=== PATIENT | male | born 1940 | race Caucasian/White ===

== ENCOUNTER 2018-03-04 20:41 | Inpatient (IN) | payer MEDICARE, OTHER, SELFPAY ==
[2018-03-04 23:15] VITALS: BP 139/73; PULSE 70; RESP 18; TEMP 37.1; O2SAT 97
--- NOTE | 2018-03-04 23:45 | PC.NURSE ---
Transfer Note Pt arrived to floor at approximately 2300. Pt A&O, VSS, no complaints of pain. Pt had 1unit of PRBCs infusing from [employer] that had just finished on ambulance. Lines flushed through w/ NS and LR @ 75ml/hr started by material handler 2nd shift RN. Pt brief changed after transfer to bed. Brief changed and moderate amount of dark matilde mucus blood on brief. Pt changed and request for urinal after. Dr Bee called and updated on pt status and current VSS, telephone orders given to this RN and input into computer. Report given to material handler 2nd shift RN and all questions/concerns addressed.
[2018-03-05] VITALS (12 sets, daily range): BP systolic 105–155; BP diastolic 57–90; PULSE 62–83; RESP 12–23; TEMP 36.5–37.4; O2SAT 98–100; BMI 27.6
[2018-03-05] MEDS: LACTATED RINGERS 1,000 ML 75 ML IV
--- NOTE | 2018-03-05 | DI.RAD.S_ITS ---
PROCEDURE: XR CHEST 1V INDICATIONS: esophageal bleeding TECHNIQUE: One view of the chest was acquired. COMPARISON: None. FINDINGS: Surgical changes and devices: Sternotomy wires are seen. The 1st sternotomy wire is fractured. There is an aortic valve prosthesis seen. Lungs and pleura: No pleural effusions or pneumothorax. Lungs are clear. Mediastinum: The cardiac contours are within normal limits. The aorta demonstrates calcification and tortuosity. Bones and chest wall: Age-appropriate bony degenerative changes are seen. No suspicious bony lesions. Overlying soft tissues appear unremarkable. IMPRESSION: Unremarkable portable chest, demonstrating postoperative and degenerative change. Dictated by: Tate Almaraz M.D. on 03/05/2018 at 8:45 Approved by: Tate Almaraz M.D. on 03/05/2018 at 8:46
[2018-03-05 00:24] LABS: Hematocrit 21.4 % (41-53); Hemoglobin 7.2 g/dL (13.5-17.5)
[2018-03-05] MEDS: CARBIDOPA-LEVODOPA 25/100 TABLET 2 EACH PO ×2 (01:42→08:17)
[2018-03-05] MEDS: LORazepam 0.5 MG TABLET 0.25 MG PO (01:54)
--- NOTE | 2018-03-05 03:34 | PC.NURSE ---
Addendum entered by Estela Emery R.N. 03/05/18 07:15: 0700 Pt has second unit infusing. Per MD request, orthostatic taken and stable at this time. Pt denies dizziness while standing. Pt has been incontinent of matilde bloody stools three times over night with no nausea or vomiting. MD ordered pt to be transferred to the ICU. Report given to TELEVISION NEWS ANCHOR, pts made aware of transfer. Pts items gathered and transferred with pt. Original Note: shift supervisor melting: 0100 Pts admission completed. MD notified regarding pts request for home meds that he had missed this evening for Parkinson, MD ordered a now dose as well as Ativan for sleep per pts home routine. Pt is A/Ox3. Using 2L O2, lungs clear. H/H drawn after arrival and per order pt will need 2 units PRBC, consent for blood completed and on chart. Pt typed and crossed. Pt incontinent of matilde bloody stool. Denies nausea and pain. Pt and his spouse oriented to room and call light. Bed alarm on for safety. Spouse rooming in overnight. 0230 unit of PRBs infusing. Pt has been medicated with prn Ativan for sleep right before starting the this unit.
--- NOTE | 2018-03-05 07:07 | PM.HP.1 ---
History of Present Illness Date Patient Seen: 03/05/18 Time Patient Seen: 06:00 Chief complaint: gi bleed Narrative: Patient is a 77 years of age male who initially was seen at [facility] Emergency Room on SundayMarch 02 with chief complaint of bright red blood per rectum that began on SundayMarch 01.. Patient has history of gastric esophageal reflux disease and use of nonsteroidal anti-inflammatories on a regular basis. Patient had the bowel prep on SundayMarch 02 and underwent a EGD and colonoscopy on SundayMarch 03. Patient was found to have esophageal tear and was cauterized. Patient was then discharged home the same day. The following day on SundayMarch 04 patient had, once again, bright red blood per rectum and came back to the emergency room at [facility]. Since there was no bed available to admit the patient the manufacturing shift supervisor doctor was contacted at [facility] to accept transfer of patient. Patient's hemoglobin was noted at 7.7 in the emergency room at [facility] before 1 unit of blood was transfused. This blood was provided to the patient in transit from the ER at [facility] to [facility] as a direct admit to the medical-surgical floor instead of the intensive care unit. At the present time I am unclear what was the last recorded hemoglobin on SundayMarch 03 before patient was discharged home. Of note, the hemoglobin following the 1 unit of packed RBC reported a lower hemoglobin of 7.2. This would suggest patient has active ongoing GI bleed and more importantly the hemoglobin was 0.5 units lower than the hemoglobin prior to the blood transfusion. As the day shift physician the following morning I am responsible for admitting this patient and will transfer the patient to the intensive care unit for higher level of care and monitoring since that there is clear evidence of active GI bleeding and continued dropping of the hemoglobin in the face of the blood transfusion. There has been no surgeon consulted on this patient either prior to or after the patient's arrival to the hospital. I will also consult with her surgeon and seek their recommendation. Patient History Medical History Hypertension (Acute) Hypothyroidism (Acute) Parkinson disease (Acute) Comment: Past medical history Parkinson's disease for the past 22 years. History of aortic valve replacement with bioprosthetic valve 4 years ago. Hypertension hypothyroidism gastroesophageal reflux disease Social history Patient is . Patient stop smoking in his mid 20s. No alcohol abuse Surgical history Bioprosthetic aortic valve replacement 4 years ago Family history Mother with COPD Family & Social History Social History: household members spouse Prior Living Arrangements House Safety & Behavioral: Feels Safe in Current Yes Environment Been Physically Hurt or No Threatened By a Person Suicidal Ideation Description None Suicide Plan Description No Plan Tobacco & Substance use: Smoking Status Former smoker alcohol intake frequency other Meds Home Medications Medication Instructions Recorded Confirmed Type APAP/Ca Carbonate/Mg Carbona 500 - 1,000 mg PO PRN PRN #0 07/04/12 03/05/18 History (#EXCEDRIN DUAL ASPIRIN FREE) CALCIUM CARBONATE (TUMS ) 1 - 2 tabs PO PRN PRN #0 07/04/12 03/05/18 History CHOLECALCIFEROL (VITAMIN D) 5,000 units PO QDAY #0 07/04/12 03/05/18 History carbidopa-levodopa 2 tab PO QID #0 07/04/12 03/05/18 History CAMPHOR/EUCALYPTUS OIL/MENTH 1 cre TP PRN #0 07/08/12 03/05/18 History (VICKS VAPORUB 4.7%-1.2%-2.6%) LEVOTHYROXINE SODIUM (SYNTHROID) 0.05 mg PO QDAY #90 09/25/12 03/05/18 Rx Multi Vitamin 1 tab PO DAILY 03/05/18 03/05/18 History amlodipine 2.5 mg PO DAILY 03/05/18 03/05/18 History cyanocobalamin-cobamamide [B12] 1,000 mcg DAILY 03/05/18 03/05/18 History lorazepam 0.25 mg PO Q6HR PRN 03/05/18 03/05/18 History losartan 50 mg PO DAILY 03/05/18 03/05/18 History pantoprazole 40 mg PO BID 03/05/18 03/05/18 History ropinirole 8 mg PO DAILY 03/05/18 03/05/18 History Allergies Allergy/AdvReac Type Severity Reaction Status Date / Time HYDROCHLOROTHIAZIDE Allergy Mild LIGHTHEADED Uncoded 09/12/17 12:23 Review of Systems Review of Systems A 10 point review of system was obtained conversation with the patient. Symptoms were negative apart from the bright red blood per rectum noted on March 04Sunday which caused patient to come back to the emergency room. There was no hematemesis. There was no abdominal pain noted. No recent fevers and chills. No cough Exam Vital Signs (past 8 hours): - 03/04/18 23:15 03/05/18 02:18 03/05/18 02:37 Temperature 98.8 F 98.6 F 97.7 F Pulse Rate 70 78 63 Pulse Rate [Orthostatic Lying] Pulse Rate [Orthostatic Sitting] Pulse Rate [Orthostatic Standing] Respiratory Rate 18 18 18 Blood Pressure 139/73 139/78 105/57 L Blood Pressure [Orthostatic Lying] Blood Pressure [Orthostatic Sitting] Blood Pressure [Orthostatic Standing] Pulse Oximetry 97 03/05/18 05:00 03/05/18 05:06 03/05/18 05:09 Temperature 99 F 99.0 F 99.0 F Pulse Rate 62 62 62 Pulse Rate [Orthostatic Lying] Pulse Rate [Orthostatic Sitting] Pulse Rate [Orthostatic Standing] Respiratory Rate 18 18 18 Blood Pressure 113/61 113/61 113/61 Blood Pressure [Orthostatic Lying] Blood Pressure [Orthostatic Sitting] Blood Pressure [Orthostatic Standing] Pulse Oximetry 100 03/05/18 05:20 03/05/18 06:46 Temperature 98.6 F Pulse Rate 68 Pulse Rate [Orthostatic Lying] 65 Pulse Rate [Orthostatic Sitting] 62 Pulse Rate [Orthostatic Standing] 70 Respiratory Rate 18 Blood Pressure 117/58 L Blood Pressure [Orthostatic Lying] 138/79 Blood Pressure [Orthostatic Sitting] 144/79 H Blood Pressure [Orthostatic Standing] 155/78 H Pulse Oximetry Oxygen Flow Rate 2 Narrative Exam Narrative: General appearance patient is not awake and alert in no apparent distress at rest Psychiatric well oriented to time place person. Mood is pleasant patient's is at bedside affect is appropriate Skin no rashes or lesions at nonjaundiced turgor normal Eyes pupils are equal round and reactive to light Ears nose and throat hearing grossly intact nose septum to midline no bleeding no oropharyngeal lesions noted Respiratory fairly clear to auscultation good airflow no wheezes no crackles Cardiovascular regular rate rhythm no murmur rubs or gallops +3 pulses to extremities GI nontender to palpation positive bowel sounds no pedal splenomegaly no bruits Extremities warm +3 pulses no edema Neurologic no focal neurologic changes cranial nerves 2-12 grossly intact. Resting tremor evident consistent with history of Parkinson's disease Musculoskeletal strength is noted 5/5 no clubbing is noted range of motion normal Objective Labs Result Diagrams: 03/05/18 00:12 Labs: Laboratory Results - last 24 hr 03/05/18 03/05/18 00:12 00:12 Hgb 7.2 L Hct 21.4 L Blood Type A Positive Antibody Screen Negative Crossmatch See Detail Assessment & Plan Plan: Assessment/Plan Narrative: Acute upper GI bleed Patient was transferred from [facility] Emergency room as a direct admit to the medical-surgical floor at [facility] with active GI bleed. Patient had EGD and colonoscopy at [facility] as an inpatient on SundayMarch 03. An esophageal tear was identified and cauterized during the EGD procedure Patient was discharged from would be hospice on SundayMarch 03.. Recurrence of bleed noted by the patient March 04Sunday and return to the [facility] ER. Upon return to the emergency room on March 04, the initial hemoglobin was 7.7. Patient was provided 1 unit of packed RBCs. A follow-up hemoglobin was 7.2. The nightshift physician was contacted By the manufacturing shift supervisor nursing staff and recommended 2 additional units of packed RBCs. No general surgeon has been contacted as yet at [facility] regarding this patient's transfer. Will move the patient for medical surgical floor to the ICU due to this active GI bleed that is appearing to be still quite aggressive. Will call the general surgeon coupon collection clerk to discuss this case and how we should proceed with further management. Protonix 80 mg IV dose given and 40 mg IV q.12. Hemoglobin hematocrit to be monitored carefully every 3-4 hours with orthostatic blood pressure and pulse rate every 3-4 hours. Will of course hold the nonsteroidal anti-inflammatory medications he normally takes on a regular basis Parkinson's disease Continue his usual home medications as tolerated. Hypertension history Hold his blood pressure meds at this time Gastroesophageal reflux disease history Note Protonix IV being provided q.12 hours History of aortic valve replacement bioprosthetic valve No anticoagulant therapy indicated. Hypothyroidism Continue Synthroid as tolerated Time Spent With Patient Time with patient: Greater than 35 minutes (70 min)
--- NOTE | 2018-03-05 07:25 | P.HP_ITS ---
History of Present Illness Date Patient Seen: 03/05/18 Time Patient Seen: 06:00 Chief complaint: gi bleed Narrative: Patient is a 77 years of age male who initially was seen at [facility] Emergency Room on SundayMarch 02 with chief complaint of bright red blood per rectum that began on SundayMarch 01.. Patient has history of gastric esophageal reflux disease and use of nonsteroidal anti-inflammatories on a regular basis. Patient had the bowel prep on SundayMarch 02 and underwent a EGD and colonoscopy on SundayMarch 03. Patient was found to have esophageal tear and was cauterized. Patient was then discharged home the same day. The following day on SundayMarch 04 patient had, once again, bright red blood per rectum and came back to the emergency room at [facility]. Since there was no bed available to admit the patient the almond huller doctor was contacted at [facility] to accept transfer of patient. Patient's hemoglobin was noted at 7.7 in the emergency room at [facility] before 1 unit of blood was transfused. This blood was provided to the patient in transit from the ER at [facility] to [facility] as a direct admit to the medical-surgical floor instead of the intensive care unit. At the present time I am unclear what was the last recorded hemoglobin on SundayMarch 03 before patient was discharged home. Of note, the hemoglobin following the 1 unit of packed RBC reported a lower hemoglobin of 7.2. This would suggest patient has active ongoing GI bleed and more importantly the hemoglobin was 0.5 units lower than the hemoglobin prior to the blood transfusion. As the day shift physician the following morning I am responsible for admitting this patient and will transfer the patient to the intensive care unit for higher level of care and monitoring since that there is clear evidence of active GI bleeding and continued dropping of the hemoglobin in the face of the blood transfusion. There has been no surgeon consulted on this patient either prior to or after the patient's arrival to the hospital. I will also consult with her surgeon and seek their recommendation. Patient History Medical History Hypertension (Acute) Hypothyroidism (Acute) Parkinson disease (Acute) Comment: Past medical history Parkinson's disease for the past 22 years. History of aortic valve replacement with bioprosthetic valve 4 years ago. Hypertension hypothyroidism gastroesophageal reflux disease Social history Patient is . Patient stop smoking in his mid 20s. No alcohol abuse Surgical history Bioprosthetic aortic valve replacement 4 years ago Family history Mother with COPD Family & Social History Social History: household members spouse Prior Living Arrangements House Safety & Behavioral: Feels Safe in Current Yes Environment Been Physically Hurt or No Threatened By a Person Suicidal Ideation Description None Suicide Plan Description No Plan Tobacco & Substance use: Smoking Status Former smoker alcohol intake frequency other Meds Home Medications Medication Instructions Recorded Confirmed Type APAP/Ca Carbonate/Mg Carbona 500 - 1,000 mg PO PRN PRN #0 07/04/12 03/05/18 History (#EXCEDRIN DUAL ASPIRIN FREE) CALCIUM CARBONATE (TUMS ) 1 - 2 tabs PO PRN PRN #0 07/04/12 03/05/18 History CHOLECALCIFEROL (VITAMIN D) 5,000 units PO QDAY #0 07/04/12 03/05/18 History carbidopa-levodopa 2 tab PO QID #0 07/04/12 03/05/18 History CAMPHOR/EUCALYPTUS OIL/MENTH 1 cre TP PRN #0 07/08/12 03/05/18 History (VICKS VAPORUB 4.7%-1.2%-2.6%) LEVOTHYROXINE SODIUM (SYNTHROID) 0.05 mg PO QDAY #90 09/25/12 03/05/18 Rx Multi Vitamin 1 tab PO DAILY 03/05/18 03/05/18 History amlodipine 2.5 mg PO DAILY 03/05/18 03/05/18 History cyanocobalamin-cobamamide [B12] 1,000 mcg DAILY 03/05/18 03/05/18 History lorazepam 0.25 mg PO Q6HR PRN 03/05/18 03/05/18 History losartan 50 mg PO DAILY 03/05/18 03/05/18 History pantoprazole 40 mg PO BID 03/05/18 03/05/18 History ropinirole 8 mg PO DAILY 03/05/18 03/05/18 History Allergies Allergy/AdvReac Type Severity Reaction Status Date / Time HYDROCHLOROTHIAZIDE Allergy Mild LIGHTHEADED Uncoded 09/12/17 12:23 Review of Systems Review of Systems A 10 point review of system was obtained conversation with the patient. Symptoms were negative apart from the bright red blood per rectum noted on March 04Sunday which caused patient to come back to the emergency room. There was no hematemesis. There was no abdominal pain noted. No recent fevers and chills. No cough Exam Vital Signs (past 8 hours): - 03/04/18 23:15 03/05/18 02:18 03/05/18 02:37 Temperature 98.8 F 98.6 F 97.7 F Pulse Rate 70 78 63 Pulse Rate [Orthostatic Lying] Pulse Rate [Orthostatic Sitting] Pulse Rate [Orthostatic Standing] Respiratory Rate 18 18 18 Blood Pressure 139/73 139/78 105/57 L Blood Pressure [Orthostatic Lying] Blood Pressure [Orthostatic Sitting] Blood Pressure [Orthostatic Standing] Pulse Oximetry 97 03/05/18 05:00 03/05/18 05:06 03/05/18 05:09 Temperature 99 F 99.0 F 99.0 F Pulse Rate 62 62 62 Pulse Rate [Orthostatic Lying] Pulse Rate [Orthostatic Sitting] Pulse Rate [Orthostatic Standing] Respiratory Rate 18 18 18 Blood Pressure 113/61 113/61 113/61 Blood Pressure [Orthostatic Lying] Blood Pressure [Orthostatic Sitting] Blood Pressure [Orthostatic Standing] Pulse Oximetry 100 03/05/18 05:20 03/05/18 06:46 Temperature 98.6 F Pulse Rate 68 Pulse Rate [Orthostatic Lying] 65 Pulse Rate [Orthostatic Sitting] 62 Pulse Rate [Orthostatic Standing] 70 Respiratory Rate 18 Blood Pressure 117/58 L Blood Pressure [Orthostatic Lying] 138/79 Blood Pressure [Orthostatic Sitting] 144/79 H Blood Pressure [Orthostatic Standing] 155/78 H Pulse Oximetry Oxygen Flow Rate 2 Narrative Exam Narrative: General appearance patient is not awake and alert in no apparent distress at rest Psychiatric well oriented to time place person. Mood is pleasant patient's is at bedside affect is appropriate Skin no rashes or lesions at nonjaundiced turgor normal Eyes pupils are equal round and reactive to light Ears nose and throat hearing grossly intact nose septum to midline no bleeding no oropharyngeal lesions noted Respiratory fairly clear to auscultation good airflow no wheezes no crackles Cardiovascular regular rate rhythm no murmur rubs or gallops +3 pulses to extremities GI nontender to palpation positive bowel sounds no pedal splenomegaly no bruits Extremities warm +3 pulses no edema Neurologic no focal neurologic changes cranial nerves 2-12 grossly intact. Resting tremor evident consistent with history of Parkinson's disease Musculoskeletal strength is noted 5/5 no clubbing is noted range of motion normal Objective Labs Result Diagrams: 03/05/18 00:12 Labs: Laboratory Results - last 24 hr 03/05/18 03/05/18 00:12 00:12 Hgb 7.2 L Hct 21.4 L Blood Type A Positive Antibody Screen Negative Crossmatch See Detail Assessment & Plan Plan: Assessment/Plan Narrative: Acute upper GI bleed Patient was transferred from [facility] Emergency room as a direct admit to the medical-surgical floor at [facility] with active GI bleed. Patient had EGD and colonoscopy at [facility] as an inpatient on SundayMarch 03. An esophageal tear was identified and cauterized during the EGD procedure Patient was discharged from would be hospice on SundayMarch 03.. Recurrence of bleed noted by the patient March 04Sunday and return to the [facility] ER. Upon return to the emergency room on March 04, the initial hemoglobin was 7.7. Patient was provided 1 unit of packed RBCs. A follow-up hemoglobin was 7.2. The nightshift physician was contacted By the almond huller nursing staff and recommended 2 additional units of packed RBCs. No general surgeon has been contacted as yet at [facility] regarding this patient's transfer. Will move the patient for medical surgical floor to the ICU due to this active GI bleed that is appearing to be still quite aggressive. Will call the general surgeon underground conduit installer to discuss this case and how we should proceed with further management. Protonix 80 mg IV dose given and 40 mg IV q.12. Hemoglobin hematocrit to be monitored carefully every 3-4 hours with orthostatic blood pressure and pulse rate every 3-4 hours. Will of course hold the nonsteroidal anti-inflammatory medications he normally takes on a regular basis Parkinson's disease Continue his usual home medications as tolerated. Hypertension history Hold his blood pressure meds at this time Gastroesophageal reflux disease history Note Protonix IV being provided q.12 hours History of aortic valve replacement bioprosthetic valve No anticoagulant therapy indicated. Hypothyroidism Continue Synthroid as tolerated Time Spent With Patient Time with patient: Greater than 35 minutes (70 min)
--- NOTE | 2018-03-05 08:14 | P.HP_ITS ---
History of Present Illness Chief complaint: gi bleed Narrative: Patient is a 77 years of age male who initially was seen at [facility] Emergency Room on SundayMarch 02 with chief complaint of bright red blood per rectum that began on SundayMarch 01.. Patient has history of gastric esophageal reflux disease and use of nonsteroidal anti-inflammatories on a regular basis. Patient had the bowel prep on SundayMarch 02 and underwent a EGD and colonoscopy on SundayMarch 03. Patient was found to have esophageal tear and was cauterized. Patient was then discharged home the same day. The following day on SundayMarch 04 patient had, once again, bright red blood per rectum and came back to the emergency room at [facility]. Since there was no bed available to admit the patient the veterinary hospital shift lead doctor was contacted at [facility] to accept transfer of patient. Patient's hemoglobin was noted at 7.7 in the emergency room at [facility] before 1 unit of blood was transfused. This blood was provided to the patient in transit from the ER at [facility] to [facility] as a direct admit to the medical-surgical floor instead of the intensive care unit. At the present time I am unclear what was the last recorded hemoglobin on SundayMarch 03 before patient was discharged home. Of note, the hemoglobin following the 1 unit of packed RBC reported a lower hemoglobin of 7.2. This would suggest patient has active ongoing GI bleed and more importantly the hemoglobin was 0.5 units lower than the hemoglobin prior to the blood transfusion. As the day shift physician the following morning I am responsible for admitting this patient and will transfer the patient to the intensive care unit for higher level of care and monitoring since that there is clear evidence of active GI bleeding and continued dropping of the hemoglobin in the face of the blood transfusion. There has been no surgeon consulted on this patient either prior to or after the patient's arrival to the hospital. I will also consult with her surgeon and seek their recommendation. Patient History Medical History Hypertension (Acute) Hypothyroidism (Acute) Parkinson disease (Acute) Surgical History History of aortic valve replacement with porcine valve (Acute) Family & Social History Social History: household members spouse Prior Living Arrangements House Safety & Behavioral: Feels Safe in Current Yes Environment Been Physically Hurt or No Threatened By a Person Suicidal Ideation Description None Suicide Plan Description No Plan Tobacco & Substance use: Smoking Status Former smoker alcohol intake frequency other Meds Home Medications Medication Instructions Recorded Confirmed Type APAP/Ca Carbonate/Mg Carbona 500 - 1,000 mg PO PRN PRN #0 07/04/12 03/05/18 History (#EXCEDRIN DUAL ASPIRIN FREE) CALCIUM CARBONATE (TUMS ) 1 - 2 tabs PO PRN PRN #0 07/04/12 03/05/18 History CHOLECALCIFEROL (VITAMIN D) 5,000 units PO QDAY #0 07/04/12 03/05/18 History carbidopa-levodopa 2 tab PO QID #0 07/04/12 03/05/18 History CAMPHOR/EUCALYPTUS OIL/MENTH 1 cre TP PRN #0 07/08/12 03/05/18 History (VICKS VAPORUB 4.7%-1.2%-2.6%) LEVOTHYROXINE SODIUM (SYNTHROID) 0.05 mg PO QDAY #90 09/25/12 03/05/18 Rx Multi Vitamin 1 tab PO DAILY 03/05/18 03/05/18 History amlodipine 2.5 mg PO DAILY 03/05/18 03/05/18 History cyanocobalamin-cobamamide [B12] 1,000 mcg DAILY 03/05/18 03/05/18 History lorazepam 0.25 mg PO Q6HR PRN 03/05/18 03/05/18 History losartan 50 mg PO DAILY 03/05/18 03/05/18 History pantoprazole 40 mg PO BID 03/05/18 03/05/18 History ropinirole 8 mg PO DAILY 03/05/18 03/05/18 History Allergies Allergy/AdvReac Type Severity Reaction Status Date / Time HYDROCHLOROTHIAZIDE Allergy Mild LIGHTHEADED Uncoded 09/12/17 12:23 Exam Vital Signs (past 8 hours): - 03/05/18 02:18 03/05/18 02:37 03/05/18 05:00 Temperature 98.6 F 97.7 F 99 F Pulse Rate 78 63 62 Pulse Rate [Orthostatic Lying] Pulse Rate [Orthostatic Sitting] Pulse Rate [Orthostatic Standing] Respiratory Rate 18 Blood Pressure 139/78 105/57 L 113/61 Blood Pressure [Orthostatic Lying] Blood Pressure [Orthostatic Sitting] Blood Pressure [Orthostatic Standing] Pulse Oximetry 03/05/18 05:06 03/05/18 05:09 03/05/18 05:20 Temperature 99.0 F 99.0 F 98.6 F Pulse Rate 62 62 68 Pulse Rate [Orthostatic Lying] Pulse Rate [Orthostatic Sitting] Pulse Rate [Orthostatic Standing] Respiratory Rate 18 18 18 Blood Pressure 113/61 113/61 117/58 L Blood Pressure [Orthostatic Lying] Blood Pressure [Orthostatic Sitting] Blood Pressure [Orthostatic Standing] Pulse Oximetry 100 03/05/18 06:46 03/05/18 07:22 Temperature 98.3 F Pulse Rate 62 Pulse Rate [Orthostatic Lying] 65 Pulse Rate [Orthostatic Sitting] 62 Pulse Rate [Orthostatic Standing] 70 Respiratory Rate 12 Blood Pressure 151/77 H Blood Pressure [Orthostatic Lying] 138/79 Blood Pressure [Orthostatic Sitting] 144/79 H Blood Pressure [Orthostatic Standing] 155/78 H Pulse Oximetry 99 Oxygen Flow Rate 2 Objective Labs Result Diagrams: 03/05/18 00:12 Labs: Laboratory Results - last 24 hr 03/05/18 03/05/18 00:12 00:12 Hgb 7.2 L Hct 21.4 L Blood Type A Positive Antibody Screen Negative Crossmatch See Detail
[2018-03-05] MEDS: PANTOPRAZOLE 80 MG in SODIUM CHLORIDE 0.9% 100 ML 10 ML IV (08:18)
[2018-03-05] MEDS: SODIUM CHLORIDE 0.9% 1,000 ML 100 ML IV (08:21)
[2018-03-05] MEDS: ROPINIROLE 4 MG TABLET 8 MG PO (08:23)
[2018-03-05 08:40] LABS: Hematocrit 26.5 % (41-53); Hemoglobin 9.3 g/dL (13.5-17.5)
--- NOTE | 2018-03-05 09:04 | CM.DANOTE ---
Discharge Planning/Care Management: DCP: assessment: Case received, EMR reviewed and met with pt and his Willis ([phone]). Introduced self and role. Pt is a 77 year old male who was sent over from [facility] ER. Willis reports she spoke with their PCP Dr. Jordan who is recommending that pt go to a hospital setting that has a GI specialist. Dr. Rodrigues is aware and working at this time on a transfer to appropriate facility. Payer: Medicare and [facility]. P: follow prn. CM Discharge Assessment Start: 03/05/18 09:01 Freq: Status: Active Protocol: Document 03/05/18 09:01 ITV (Rec: 03/05/18 09:04 ITV [id number]) Discharge Planning Assessment Advance Directives? Yes: UNK PLEASE CHECK WITH PATIENT Advance Directives on File No History Provided By Patient Family Member Prior Living Arrangements House Household Members spouse Review Status In Process Next Review Type Continued Stay Review
[2018-03-05 09:44] LABS: Hematocrit 26.5 % (41-53); Hemoglobin 9.4 g/dL (13.5-17.5); Mean Corpuscular HGB Conc 35.5 % (30-36); Mean Corpuscular Hemoglobin 31.9 PG (26-34); Platelet Count 126 X10^3/uL (150-400); Red Blood Cell Count 2.94 X10^6/uL (4.5-5.9); Red Cell Distribution Width 13.6 % (11.6-14.8); White Blood Cell Count 7.4 X10^3/uL (4.5-11.0)
[2018-03-05 09:47] LABS: Alanine Aminotransferase 15 IU/L (21-72); Albumin 2.8 g/dL (3.5-5.0); Albumin Globulin Ratio 1.3 (1.0-2.8); Alkaline Phosphatase 30 U/L (38-126); Aspartate Aminotransferase 24 IU/L (17-59); BUN Creatinine Ratio 15.5 (6-22); Bilirubin Total 1.7 mg/dL (0.2-1.3); Blood Urea Nitrogen 17 mg/dL (9-20); Carbon Dioxide 25 mmol/L (22-32); Chloride 106 mmol/L (98-107); Estimated Glomerular Filt Rate > 60.0 mL/min (>60); Globulin 2.2 g/dL (1.7-4.1); Glucose 113 mg/dL (80-110); HEMOLYSIS < 15 (0-50); Potassium 3.7 mmol/L (3.4-5.1); Sodium 138 mmol/L (137-145)
[2018-03-05] MEDS: PIPERACILLIN-TAZO 3.375 GM/50 ML FROZ.PIGGY IV (09:51)
[2018-03-05 10:09] LABS: Neutrophils Absolute Manual 5772 /uL (3000-5900); RBC Morphology Normal Morphology; Total Cells Counted 100
[2018-03-05] MEDS: FLUCONAZOLE 200 MG/100 ML PIGGYBACK 100 MG IV (10:31)
--- NOTE | 2018-03-05 10:47 | PM.DS.1 ---
History of Present Illness Date Patient Seen: 03/05/18 Time Patient Seen: 06:17 Chief complaint: gi bleed Narrative: Patient is a 77 years of age male who initially was seen at [facility] Emergency Room on SundayMarch 02 with chief complaint of bright red blood per rectum that began on SundayMarch 01.. Patient has history of gastric esophageal reflux disease and use of nonsteroidal anti-inflammatories on a regular basis. Patient had the bowel prep on SundayMarch 02 and underwent a EGD and colonoscopy on SundayMarch 03. Patient was found to have esophageal tear and was cauterized. Patient was then discharged home the same day. The following day on SundayMarch 04 patient had, once again, bright red blood per rectum and came back to the emergency room at [facility]. Since there was no bed available to admit the patient the slicing machine operator/tender doctor was contacted at [facility] to accept transfer of patient. Patient's hemoglobin was noted at 7.7 in the emergency room at [facility] before 1 unit of blood was transfused. This blood was provided to the patient in transit from the ER at [facility] to [facility] as a direct admit to the medical-surgical floor instead of the intensive care unit. At the present time I am unclear what was the last recorded hemoglobin on SundayMarch 03 before patient was discharged home. Of note, the hemoglobin following the 1 unit of packed RBC reported a lower hemoglobin of 7.2. This would suggest patient has active ongoing GI bleed and more importantly the hemoglobin was 0.5 units lower than the hemoglobin prior to the blood transfusion. As the day shift physician the following morning I am responsible for admitting this patient and will transfer the patient to the intensive care unit for higher level of care and monitoring since that there is clear evidence of active GI bleeding and continued dropping of the hemoglobin in the face of the blood transfusion. There has been no surgeon consulted on this patient either prior to or after the patient's arrival to the hospital. I will also consult with her surgeon and seek their recommendation. Discharge Providers Date of admission: 03/04/18 20:41 Primary care physician: Ruel Jordan MD Discharge provider: Shaun Rodrigues MD Summary Discharge Diagnosis: Acute upper GI bleed Patient was transferred from [facility] Emergency room as a direct admit to the medical-surgical floor at [facility] with active GI bleed. Patient had EGD and colonoscopy at [facility] as an inpatient on SundayMarch 03. An esophageal tear was identified and cauterized during the EGD procedure Patient was discharged from would be hospice on SundayMarch 03.. Recurrence of bleed noted by the patient March 04Sunday and return to the [facility] ER. Upon return to the emergency room on March 04, the initial hemoglobin was 7.7. Patient was provided 1 unit of packed RBCs. A follow-up hemoglobin was 7.2. The nightshift physician was contacted By the slicing machine operator/tender nursing staff and recommended 2 additional units of packed RBCs. No general surgeon has been contacted as yet at [facility] regarding this patient's transfer. Will move the patient for medical surgical floor to the ICU due to this active GI bleed that is appearing to be still quite aggressive. Will call the general surgeon neon molder to discuss this case and how we should proceed with further management. Protonix 80 mg IV dose given and 40 mg IV q.12. Hemoglobin hematocrit to be monitored carefully every 3-4 hours with orthostatic blood pressure and pulse rate every 3-4 hours. Will of course hold the nonsteroidal anti-inflammatory medications he normally takes on a regular basis As recommended by Dr. hong patient given 3.375 g of Zosyn and 200 mg of fluconazole IV Patient continued on Protonix IV q.12 hours. Normal saline at 100 cc an hour Parkinson's disease Continue his usual home medications as tolerated. Hypertension history Hold his blood pressure meds at this time Gastroesophageal reflux disease history Note Protonix IV being provided q.12 hours History of aortic valve replacement bioprosthetic valve No anticoagulant therapy indicated. Hospital Course: I refer you to the H&P dictation completed earlier today. After patient was transferred to the ICU by me earlier this morning I spoke to the transfer center at the [facility]. I spoke to the medical cultural centre manager at [facility] who referred me to the cardiothoracic surgeon. Med next conversation was with Dr. Hong who was unclear regarding the management as described which consisted of Cauterization of esophageal tear as EGD procedure on Sunday At [facility] March 03. Dr. Hong referred me to the medical cultural centre manager at [facility] would be the accepting physician. This cultural centre manager was doctor Verito Gar. The recommendation was patient to be transferred by helicopter to the [facility] emergency room. Further plan and management will hinge on the workup and further consultation by the specialist team that is not available at [facility]. Patient to be transported by helicopter. Status at Discharge Cognitive/behavioral status at discharge: Awake and alert no apparent distress well oriented Time Spent with Patient Greater than 30 minutes (45 min ) Exam Vital Signs (past 8 hours): - 03/05/18 05:00 03/05/18 05:06 03/05/18 05:09 Temperature 99 F 99.0 F 99.0 F Pulse Rate 62 62 62 Pulse Rate [Orthostatic Lying] Pulse Rate [Orthostatic Sitting] Pulse Rate [Orthostatic Standing] Respiratory Rate 18 18 18 Blood Pressure 113/61 113/61 113/61 Blood Pressure [Orthostatic Lying] Blood Pressure [Orthostatic Sitting] Blood Pressure [Orthostatic Standing] Pulse Oximetry 100 03/05/18 05:20 03/05/18 06:46 03/05/18 07:22 Temperature 98.6 F 98.3 F Pulse Rate 68 62 Pulse Rate [Orthostatic Lying] 65 Pulse Rate [Orthostatic Sitting] 62 Pulse Rate [Orthostatic Standing] 70 Respiratory Rate 18 12 Blood Pressure 117/58 L 151/77 H Blood Pressure [Orthostatic Lying] 138/79 Blood Pressure [Orthostatic Sitting] 144/79 H Blood Pressure [Orthostatic Standing] 155/78 H Pulse Oximetry 99 03/05/18 09:48 03/05/18 09:54 Temperature 98.8 F Pulse Rate 69 68 Pulse Rate [Orthostatic Lying] Pulse Rate [Orthostatic Sitting] Pulse Rate [Orthostatic Standing] Respiratory Rate 14 23 Blood Pressure 146/90 H 132/72 Blood Pressure [Orthostatic Lying] Blood Pressure [Orthostatic Sitting] Blood Pressure [Orthostatic Standing] Pulse Oximetry 98 Oxygen Flow Rate 0 Narrative Exam Narrative: Patient is not awake and alert in no apparent distress at rest Psychiatric well oriented to time place person Respiratory clear to auscultation with good airflow no wheezes crackles Cardiovascular regular in rate and rhythm no murmur noted GI is benign soft nontender. Positive bowel sounds noted no distension no guarding no bruits Neurologic no focal neurologic changes cranial nerves 2-12 grossly intact patient with resting tremor tremor related to history of Parkinson's disease Objective Labs Result Diagrams: 03/05/18 08:32 03/05/18 09:28 Labs: Laboratory Results - last 24 hr 03/05/18 03/05/18 03/05/18 00:12 00:12 08:32 WBC RBC Hgb 7.2 L 9.3 L Hct 21.4 L 26.5 L MCV MCH MCHC RDW Plt Count Total Counted Seg Neutrophils % Band Neutrophils % Lymphocytes % (Manual) Atypical Lymphs % Monocytes % (Manual) Neutrophils # (Manual) RBC Morphology Sodium Potassium Chloride Carbon Dioxide BUN Creatinine Estimated GFR BUN/Creatinine Ratio Glucose Calcium Total Bilirubin AST ALT Alkaline Phosphatase Total Protein Albumin Globulin Albumin/Globulin Ratio Blood Type A Positive Antibody Screen Negative Crossmatch See Detail 03/05/18 03/05/18 08:32 09:28 WBC 7.4 RBC 2.94 L Hgb 9.4 L Hct 26.5 L MCV 90.0 MCH 31.9 MCHC 35.5 RDW 13.6 Plt Count 126 L Total Counted 100 Seg Neutrophils % 77.0 H Band Neutrophils % 1.0 L Lymphocytes % (Manual) 14.0 L Atypical Lymphs % 2.0 H Monocytes % (Manual) 6.0 Neutrophils # (Manual) 5772 RBC Morphology Normal morphology Sodium 138 Potassium 3.7 Chloride 106 Carbon Dioxide 25 BUN 17 Creatinine 1.10 Estimated GFR > 60.0 BUN/Creatinine Ratio 15.5 Glucose 113 H Calcium 8.0 L Total Bilirubin 1.7 H AST 24 ALT 15 L Alkaline Phosphatase 30 L Total Protein 5.0 L Albumin 2.8 L Globulin 2.2 Albumin/Globulin Ratio 1.3 Blood Type Antibody Screen Crossmatch Discharge Plan Discharge Plan Patient Disposition: [facility] Other facility: [facility] emergency room as discussed with ICU cultural centre manager Dr. Verito Gar Under care of provider: Dr Gar to see patient in ER Discharge comment: Initial discussion with Cardiothoracic surgeon Dr Hong at [facility] and will be involved as well. \ Dr Hong helped coordinate care and referral to Dr Gar to accept patient. Discharge Med Rec/Prescriptions Prescriptions: Discontinued APAP/Ca Carbonate/Mg Carbona (#EXCEDRIN DUAL ASPIRIN FREE) 500 - 1,000 mg PO PRN PRN (Reason: Headache) Qty: 0 RF: 0 carbidopa-levodopa 25 MG/100 MG tablet 2 tab PO QID Qty: 0 RF: 0 CALCIUM CARBONATE (TUMS ) 1 - 2 tabs PO PRN PRN (Reason: (Drug) Ingestion) Qty: 0 RF: 0 CHOLECALCIFEROL (VITAMIN D) 5,000 units PO QDAY Qty: 0 RF: 0 CAMPHOR/EUCALYPTUS OIL/MENTH (VICKS VAPORUB 4.7%-1.2%-2.6%) 1 cre TP PRN Qty: 0 RF: 0 LEVOTHYROXINE SODIUM (SYNTHROID) 0.05 mg PO QDAY Qty: 90 RF: 0 pantoprazole 40 mg tablet,delayed release (DR/EC) 40 mg PO BID RF: 0 lorazepam 0.5 mg tablet 0.25 mg PO Q6HR PRN (Reason: Anxiety) RF: 0 losartan 50 mg tablet 50 mg PO DAILY RF: 0 amlodipine 2.5 mg tablet 2.5 mg PO DAILY RF: 0 cyanocobalamin-cobamamide [B12] 5,000-100 mcg Lozenge 1,000 mcg DAILY RF: 0 Multi Vitamin 1 tab PO DAILY RF: 0 ropinirole 8 mg tablet extended release 24 hr 8 mg PO DAILY RF: 0 Discharge Health Status Multidrug resistant organism: No MDRO Discharge Data Primary Care Provider: Ruel Jordan Attending Provider: Emeterio Bee Admit Date/Time: 03/04/18 20:41
--- NOTE | 2018-03-05 11:25 | PC.NURSE ---
pt transfered to [facility] via [facility] airlift. VSS; at bedside
== END 2018-03-05 11:20 | disposition short-term general hospital (02) | DRG 392 ==
LOC: ICU 03-05 11:18 → AC 03-05 11:32
PROVIDERS: Internal Medicine; Admitting Provider Internal Medicine; PCP Internal Medicine; Visit Provider Internal Medicine
DX: K22.8 Other specified diseases of esophagus (principal); D62 Acute posthemorrhagic anemia; K92.1 Melena; G20 Parkinson's disease; I10 Essential (primary) hypertension; K21.9 Gastro-esophageal reflux disease without esophagitis; Z95.2 Presence of prosthetic heart valve; E03.9 Hypothyroidism, unspecified
CPT/HCPCS: 36415; 36430; 71045; 80053; 85014; 85018; 85025; 86850; 86900; 86901; G0378; P9016; C9113; G0379; J1450; J2543

== ENCOUNTER → 2018-06-27 09:21 | Outpatient (CLI) | payer MEDICARE, OTHER, SELFPAY ==
[2018-03-05 00:11] VITALS: BMI 27.6
--- NOTE | 2018-06-27 | DI.ECHO.S_ITS ---
[facility] +---------+ : : [address] : : : : [id number] : : : : Phone: [phone]+ Echocardiogram Report + + :Name: CHARITO NATION Study Date: 06/27/2018 Height: 70 in : :[facility] Weight: 193 lb : : Gender: Male BSA: 2.1 m2 : :: 1940 Age: 78 yrs BP: 130/78 mmHg: :Reason For Study: DYSPNEA ON EXERTION, MURMUR : : Performed By: Rachel Villafana : :Referring: Dr. Lipscomb Roof : + + Interpretation Summary The left ventricle is normal in size. The ejection fraction is estimated to be 60-65%. There has been no significant change in LVEF since the previous study. The right ventricle is mildly dilated. The right ventricular systolic function is normal. The prosthetic aortic valve is well-seated. There is probable normal prosthetic aortic valve function. The peak aortic velocity is 2.46 m/sec. The peak aortic velocity on the previous exam was 2.36 m/sec. The aortic valve mean gradient is 12.3 mmHg. There is mild to moderate tricuspid regurgitation. Compared to the prior echo exam, there has been an increase in TR severity. The right ventricular systolic pressure is estimated to be at least 33 mmHg based on an estimated right atrial pressure of 3 mm Hg. The ascending aorta is moderately enlarged. 4.2 cm in diameter. In July 2014 it was about 3.9 cm. Procedure: A two-dimensional transthoracic echocardiogram with color flow and Doppler was performed. The study quality was technically adequate. Comparison is made with the echocardiogram of 07/15/2014. The patient was in sinus bradycardia with heart rates between 41-56 bpm during the exam. Left Ventricle: The left ventricle is normal in size. Left ventricular wall thickness is mildly increased. There is no ventricular septal defect visualized. The ejection fraction is estimated to be 60-65%. There has been no significant change since the previous study. There are no focal wall motion abnormalities. MV E/A: 1.1 Med Peak E' Jeremy: 5.3 cm/sec E/E' med: 11.5. Right Ventricle: The right ventricle is mildly dilated. The right ventricular systolic function is normal. Atria: The left atrium is moderately dilated. The left atrium has remained unchanged in size since the prior echo exam. Right atrial size is normal. The right atrium has mildly decreased in size since the prior echo exam. There is no Doppler evidence for an interatrial shunt. Mitral Valve: The mitral valve leaflets appear mildly thickened, but open well. There is mild mitral annular calcification. There is trace mitral regurgitation. Aortic Valve: The prosthetic aortic valve is well-seated. There is probable normal prosthetic aortic valve function. The peak aortic velocity is 2.46 m/sec. The peak aortic velocity on the previous exam was 2.36 m/sec. The aortic valve mean gradient is 12.3 mmHg. No aortic regurgitation is present. Tricuspid Valve: The tricuspid valve leaflets are thickened and/or calcified, but open well. There is mild to moderate tricuspid regurgitation. The right ventricular systolic pressure is estimated to be at least 33 mmHg based on an estimated right atrial pressure of 3 mm Hg. Compared to the prior echo exam, there has been an increase in TR severity. Pulmonic Valve: The pulmonic valve is not well seen, but is grossly normal. There is trace pulmonic regurgitation. Great Vessels: The aortic root is normal size. The ascending aorta is moderately enlarged. The aortic arch is at the upper limits of normal in size. The pulmonary artery is normal size. The IVC is of normal diameter and collapses greater than 50% with a sniff. This suggests a low right atrial pressure of 3 mm Hg. Pericardium/ Pleura There is no pericardial effusion. MMode/2D Measurements & Calculations LVIDd: 5.3 cm LVOT diam: 2.1 cm LVIDs: 3.6 cm asc Aorta Diam: 4.2 cm FS: 32.5 % Ao Arch Diam (Prox Trans): 3.2 cm EPSS: 1.2 cm IVSd: 1.1 cm LVPWd: 1.1 cm LV greene. diameter/BSA (cm/m^2): 2.6 LV sys. diameter/BSA (cm/m^2): 1.7 LA A2 area: 24.8 cm2 RA long axis: 5.2 cm LA A4 area: 21.6 cm2 RA area: 18.1 cm2 LA length (vol): 5.5 cm RA vol: 53.8 ml LA vol: 83.1 ml RA : 26.2 ml/m2 LA vol index: 40.4 ml/m2 IVC diam: 1.7 cm RVD1 (basal): 4.2 cm RVD2 (mid): 2.7 cm TAPSE: 2.0 cm Doppler Measurements & Calculations Ao V2 max: 245.8 cm/sec LVOT Max Jeremy: 102.5 cm/sec Ao V2 mean: 160.5 cm/sec LV V1 max P.2 mmHg Ao max P.2 mmHg LV V1 VTI: 22.5 cm Ao mean P.3 mmHg LYNDA(I,D): 1.4 cm2 Ao V2 VTI: 55.8 cm LYNDA(V,D): 1.5 cm2 sev ratio: 0.40 LYNDA indexed to BSA (cm^2/m^2): 0.69 MV E max jeremy: 60.5 cm/sec TR max jeremy: 275.7 cm/sec MV A max jeremy: 54.3 cm/sec TR max P.4 mmHg MV E/A: 1.1 PA V2 max: 82.0 cm/sec Med Peak E' Jeremy: 5.3 cm/sec PA V2 mean: 55.5 cm/sec E/E' med: 11.5 PA mean P.4 mmHg Lat Peak E' Jeremy: 6.1 cm/sec PA Accel Time: 0.05 sec E/E' lat: 9.9 E/e' average: 10.7 MV dec time: 0.29 sec MV P1/2t: 86.3 msec MV P1/2t max jeremy: 60.5 cm/sec SV(LVOT): 79.0 ml MVA(P1/2t): 2.5 cm2 Reading Physician:PM
== END ==
PROVIDERS: PCP Internal Medicine; Visit Provider Nurse Practitioner
DX: I07.1 Rheumatic tricuspid insufficiency (principal); I77.810 Thoracic aortic ectasia; R06.00 Dyspnea, unspecified; R01.1 Cardiac murmur, unspecified; Z95.2 Presence of prosthetic heart valve
CPT/HCPCS: 93306

== ENCOUNTER → 2022-01-09 11:05 | Outpatient (CLI) | payer MEDICARE, OTHER, SELFPAY ==
[2018-03-05 00:11] VITALS: BMI 27.6
[2022-01-09 12:07] LABS: COVID19 -Nasal RAPID Negative (Negative)
== END ==
PROVIDERS: PCP Internal Medicine; Referring Provider Orthopaedic Surgery; Visit Provider Orthopaedic Surgery
DX: Z20.822 Contact with and (suspected) exposure to COVID-19 (principal)
CPT/HCPCS: 87635; C9803

== ENCOUNTER 2022-01-10 08:25 | Day surgery (SDC) | payer MEDICARE, OTHER, SELFPAY ==
[2018-03-05 00:11] VITALS: BMI 27.6
[2021-12-19 07:39] VITALS: BMI 25.1
[2022-01-10] VITALS (15 sets, daily range): BP systolic 109–180; BP diastolic 58–83; PULSE 44–71; RESP 14–18; TEMP 35.8–36.4; O2SAT 94–99; BMI 25.1
--- NOTE | 2022-01-10 | PATH_ITS ---
[facility] Accession Number: [id number] . 01 Material submitted: . knee - LOOSE BODY, RIGHT KNEE . 01 Diagnosis: Right Knee, Biopsy: Thrombosed varix. [facility] 01/12/2022 1541 Local . 01 Electronically signed: . Mony Luu MD, Pathologist NPI- [id number] . 01 Gross description: . Received in formalin, labeled with the patient's name and loose body right knee, and consists of a brown, smooth, glistening soft tissue fragment measuring 2.3 x 0.8 x 0.6 cm. Bisecting the specimen reveals semisolid hemorrhagic material. The specimen is submitted entirely in cassette A1. ([id number]) /FRR 01/11/20222007 Local . 01 Pathologist provided ICD-10: M17.11 . 01 CPT . 735810 Specimen Comment: A courtesy copy of this report has been sent to [phone] Performed at: 01 [facility] [address] [place] [address] [id number] MD Rivas Beltran MD Phone: [phone]
[2022-01-10] MEDS: ACETAMINOPHEN 325 MG TABLET 975 MG PO (09:23)
[2022-01-10] MEDS: CELECOXIB 200 MG CAPSULE PO (09:24)
[2022-01-10] MEDS: LACTATED RINGERS 1,000 ML 42 ML IV ×2 (09:27→11:59)
--- NOTE | 2022-01-10 09:28 | SUR.PREOP ---
Pt took home med of Cardidopa (Q2H) and Entacapone right now. Pt will turn off DBS prior to surgery as well.
[2022-01-10] MEDS: VANCOMYCIN 1,000 MG/200 ML PIGGYBACK 200 MG IV (10:06)
--- NOTE | 2022-01-10 11:00 | DI.RAD.S_ITS ---
PROCEDURE: XR KNEE RT 1TO2V INDICATIONS: RIGHT POST OP KNEE TECHNIQUE: 2 view(s) of the knee acquired. COMPARISON: [facility], CR, XR KNEE 4+ VIEWS RIGHT, 05/18/2021, 14:11. FINDINGS: Bones: Patient is status post knee joint arthroplasty. Hardware components are in expected positions. Visualized bony structures are intact. Soft tissues: Overlying postoperative changes are noted. IMPRESSION: Expected postoperative changes following knee arthroplasty. Dictated by: Sadi Modi M.D. on 01/10/2022 at 16:30 Approved by: Sadi Modi M.D. on 01/10/2022 at 16:31
--- NOTE | 2022-01-10 11:06 | P.OP_ITS ---
Operative Date/Time/Diagnoses Date of procedure: 01/10/22 Time of procedure: 11:20 Pre-op diagnosis: Right total knee arthroplasty Post-op diagnosis: same Procedure & Clinicians Procedure: Right total knee arthroplasty Same procedure as scheduled: Yes Indications: The patient has had progressively worsening right knee pain with radiographic changes consistent with arthritis. He was noted to have severe patellofemoral osteoarthritis with lateral subluxation of his patella. Non-operative management has failed and the patient has requested total knee replacement. The risks, benefits and alternatives to surgery were discussed with the patient prior to proceeding. Risks discussed included, but were not limited to, failure to relieve pain, stiffness, infection, nerve damage, deep venous thrombosis, pulmonary embolism, stroke, coma, heart attack, permanent paralysis and , as well as the potential need for eventual revision of the prosthetic. Surgeon: Jen Nolasco Vice President Supply Chain: Joao Alexander Anesthesia Type: General Operative Notes Findings: Severe right knee osteoarthritis with severe destruction of his patellofemoral joint and severe destruction of his femur especially laterally along the trochlear groove. Closure Type: primary Specimen(s): none sent Prosthetic devices, grafts, tissues, transplants, or devices: [facility] BCS 2 size 6 femur, size 5 tibia, +9 poly, 38 mm round patella Estimated Blood Loss (mL): 250 Blood products transfused: none Tourniquet time (min): 76 Procedure in detail: The patient was seen in the pre-operative area, where the patient identified the right knee as the operative site and this was marked with my initials. The patient received pre-operative antibiotics, and was taken to the operating room and placed on the operative table in the supine position. After satisfactory anesthesia, a business development sales executive out was performed. The right leg was encircled with a tourniquet about the proximal thigh, and the leg was prepared from the toes to the tourniquet with ChloroPrep in the usual fashion and draped through sterile drapes. The leg was elevated and exsanguinated with Eschmark bandage and the tourniquet inflated to [250] mmHg pressure. The knee was approached through an approximately 18 cm incision centered over the patella and carried into the knee through a medial parapatellar arthrotomy. A portion of the medial and lateral meniscus was resected. Soft tissue was carefully mobilized around the patella the patella was measured with a caliper. We meticulously evaluated the patella. There was some severe central wear. I used multiple different calipers. I then carefully resected for a flat surface although there was a central defect. Bone was resected from the patella and the patellar height was reconstituted with up an appropriate sized patellar component. A lateral release at least of the synovium was done. In a carefully mobilized patella. I offered tract for patella tracking after the patella was resurfaced with a trial component. The patella did appear to track appropriately. A cover was then placed on the patella. A small amount of additional medial and lateral meniscus was resected. The distal femur was cut at 5?. A [+2] cut was used. It looked like an appropriate distal femoral cut and the cut was made without difficulty. An extramedullary guide was used for the tibial cut. 10 mm was resected off the least affected side.The tibia was prepared. The rotation was assessed. The patient was placed in extension residual medial and lateral meniscus as well as any residual bone was carefully resected. [No] additional tibia was resected. Hemostasis was achieved especially posteriorly. Additional local was injected into the posterior capsule. The extension gap was assessed and additional releases for gap balancing were performed as necessary. It was checked with the gap ice cream shop associate. The femoral component was trial was placed and the notch was finished. The rotation was assessed and the appropriate size femoral guide was placed on the distal femur and finishing cuts were made. There was no evidence of notching. The anterior, posterior and chamfer cuts were then made. The posterior osteophytes and soft tissues were then removed. The posterior capsule was injected with part of a mixture of 60 ml 0.25% Marcaine mixed with 20 ml Exparel for post operative pain control. The remainder of this mixture was injected into the capsule and subcutaneous tissues during cement curing. The tibial and femoral components were then placed and the knee placed through a range of motion. Range of motion was [0-130], with good stability throughout the range. The trials were then removed, and the tibia was finished. The bone was prepared with pulsatile lavage, and dried with a sponge. Cement was applied and the final prosthetics placed. Excess cement was removed during and after cement curing. A brief Betadine soak was performed. After confirming there was no extruded ce ment posteriorly, the final tibial insert was placed. The knee was copiously irrigated and the tourniquet deflated. Hemostasis was obtained with the Bovie. A drain was placed and brought out superolaterally. The capsule was closed with interrupted nonabsorbable suture. The subcutaneous layer was closed with barbed sutures, and the skin with a running 3-0 V-Lock suture and Surgical glue. An Aquacel Ag dressing was applied and the patient was taken to recovery having tolerated the procedure well. Complications: none Post-operative Condition: stable Disposition: Acute Care Plan for aftercare: The patient will be maintained on a standard total knee replacement protocol with weight bearing as tolerated. The patient will receive aspirin and sequential compression devices for DVT prophylaxis. The patient will be discharged home when safe for the home environment.
--- NOTE | 2022-01-10 11:06 | PM.PREOP ---
Pre-operative Note COVID-19 COVID-19 status: Negative Interval Note History & Physical reviewed/Exam performed by Physician: Yes Changes to H&P: No
--- NOTE | 2022-01-10 11:12 | SUR.PREOP ---
Block start time [1107] . Monitoring initiated and maintained throughout procedure. 2LNC Oxygen and medications given by anesthesiologist Patient remained stable throughout procedure, no adverse reactions noted. Block end time [1110]. Vitals 138/76, HR 42 SB, Sats 99%. DBS turned off by patient- he confirmed it is off. updated that pt is heading to OR soon.
[2022-01-10] MEDS: CEFAZOLIN 2 GM IN 0.9 % NACL 100 ML IV ×2 (11:25→19:51)
[2022-01-10] MEDS: TRANEXAMIC ACID 1,000 MG VIAL 2000 MG INJ (11:44)
--- NOTE | 2022-01-10 12:25 | SUR.OPER ---
Supine on padded OR bed. Pillow under head, arms secured on padded armboards <90 degree abduction. Safety belt across torso. Non-operative leg secured with tape over blanket over lower leg. Operative leg secured in DeMayo positioner. Foam padded brace at thigh of operative leg.
[2022-01-10] MEDS: BUPIVACAINE LIPOSOME 266 MG/20 ML VIAL INJ (13:15)
[2022-01-10] MEDS: BUPIVACAINE 0.5% INJ (13:15)
[2022-01-10] MEDS: SODIUM CHLORIDE IRRIG SOLUTION 250 ML, POVIDONE-IODINE SPONGE STICKS 1 APPLIC IRR (13:15)
[2022-01-10] MEDS: EPINEPHRINE 0.3 MG INJ (13:15)
[2022-01-10] MEDS: fentaNYL 100 MCG/2 ML INJ IV ×2 (14:01→14:14)
--- NOTE | 2022-01-10 14:28 | SUR.PHASEI ---
1425: Handoff to ERIC Grider for lunch break. Updated spouse on pt condition.
[2022-01-10] MEDS: OXYCODONE IR 5 MG TABLET PO (14:37)
[2022-01-10] MEDS: OXYCODONE IR 10 MG TABLET PO ×2 (15:26→19:57)
[2022-01-10] MEDS: LACTATED RINGERS 1,000 ML 100 ML IV (15:52)
[2022-01-10] MEDS: IBUPROFEN 400 MG TABLET PO ×2 (17:24→20:26)
[2022-01-10] MEDS: ACETAMINOPHEN 325 MG TABLET 650 MG PO (17:24)
[2022-01-10] MEDS: ENTACAPONE 200 MG TABLET PO (17:25)
[2022-01-10] MEDS: CARBIDOPA-LEVODOPA 25/100 TABLET 2 EACH PO ×3 (17:28→23:01)
--- NOTE | 2022-01-10 19:47 | PC.NURSE ---
Pt arrived from PACU at 1500, A&X3, VSS, afebrile on RA. He reports full sensation to BLE's, +CMS. He is able to stand and void this evening. Tolerates po diet well, and denies n/v. He reports pain initially 9/10 he states is much improved to a tolerable level of 7/10 pain to his R knee. Clarence wrap c/d/i. at bedside supportive. Continuous monitoring.
[2022-01-10] MEDS: CARBIDOPA-LEVODOPA ER 50/200 TABLET 1 EACH PO (19:57)
[2022-01-10] MEDS: DOCUSATE 100 MG CAPSULE PO (20:26)
[2022-01-10] MEDS: ASPIRIN EC 81 MG TABLET PO (20:26)
--- NOTE | 2022-01-10 22:45 | PC.NURSE ---
Patient is alert and oriented. Very [place] and wears bilateral hearing aids. Noted upper extremity tremors related to Parkinson's diagnosis. Breath sounds CTA with RA sat of 97%. HRR but bradycardic with rate of 44 so both Losartan and Amlodipine held tonight. Denies nausea. BT present and states he is passing flatus. Voiding per urinal at bedside; denies dysuria, frequency or urgency. Is able to turn himself in bed. Up to stand at bedside with 2 assist and walker. Did complain of pain earlier and had good relief after being medicated with both oxycodone and scheduled Ibuprofen. Aquacel dressing covered with ame wrap to right knee is CDI. CMS intact and has good motion in right leg. Wearing bilateral calf SCD's. Fall risk score is high and bed alarm is activated. rooming in.
[2022-01-11] VITALS (7 sets, daily range): BP systolic 113–141; BP diastolic 52–81; PULSE 45–53; RESP 16–20; TEMP 36.1–36.2; O2SAT 95–97
[2022-01-11] MEDS: IBUPROFEN 400 MG TABLET PO ×6 (00:36→20:33)
[2022-01-11] MEDS: ACETAMINOPHEN 325 MG TABLET 650 MG PO ×4 (00:36→17:39)
[2022-01-11] MEDS: CARBIDOPA-LEVODOPA 25/100 TABLET 2 EACH PO ×10 (01:41→22:59)
[2022-01-11] MEDS: CEFAZOLIN 2 GM IN 0.9 % NACL 100 ML IV (03:14)
[2022-01-11] MEDS: LACTATED RINGERS 1,000 ML 100 ML IV (03:15)
[2022-01-11 05:22] LABS: Hematocrit 35.4 % (41-53); Hemoglobin 12.2 g/dL (13.5-17.5)
[2022-01-11] MEDS: LEVOTHYROXINE 50 MCG TABLET PO (06:27)
[2022-01-11] MEDS: ASPIRIN EC 81 MG TABLET PO ×2 (08:44→20:33)
[2022-01-11] MEDS: ENTACAPONE 200 MG TABLET PO ×3 (08:44→17:42)
[2022-01-11] MEDS: DOCUSATE 100 MG CAPSULE PO ×2 (08:45→20:32)
[2022-01-11] MEDS: CARBIDOPA-LEVODOPA ER 50/200 TABLET 1 EACH PO ×2 (08:45→20:08)
--- NOTE | 2022-01-11 10:13 | PT.IIE ---
Current Diagnoses Parkinson's disease (01/10/22) Unilateral primary osteoarthritis, right knee (01/10/22) Surgery Performed Operation Date: 01/10/22 10:45 Actual Procedures p Total Knee Arthroplasty(Right) - Jen Nolasco MD Surgical History (Last Updated 12/19/21 @ 14:21 by Irais De Leon, RN) History of aortic valve replacement with porcine valve S/P deep brain stimulator placement (2019) Medical History (Last Updated 12/19/21 @ 14:20 by Irais DeL eon RN) Anxiety CAD (coronary artery disease) Club foot of both lower extremities GI bleed (03/05/18) Hypertension Hypothyroidism Parkinson disease Skin cancer Physical Therapy Inpatient Evaluation/Re-Eval M1 PT/OT-IP Prior Functional Status Start: 01/11/22 12:54 Freq: NEEDED Status: Active Protocol: Document 01/11/22 10:13 AB (Rec: 01/11/22 13:10 AB [id number]) Medical Review Prior Functional Status Medical History Reviewed Yes Communication able to make needs known but with memory issues and usually defers to the spouse for answers to questions Mobility and Gait stated that he is modified independent with all mobilities and ambulation without AD indoors and uses a SPC for outdoor mobility but if going for a walk with spouse, pt uses a 4WW; leans on to shopping cart when out doing his groceries Social History Household Members spouse Living Arrangements House Number of Floors (Floors) One Floor Number of Stairs To Enter/Railing? 2 steps L rail from the front door 2 steps without rails but has grab bars on each sides of the door (from the garage) Home Environment Standard Height Toilet,Walk in Shower Home Equipment Front Wheel Walker,Four Wheel Walker,Straight Cane,Hand Held Shower Additional Social History Comment spouse stated that they hired another caregiver to assist pt aside from her assisting pt: caregiver initially will be coming in 2 hours in the morning and 2 hours in the afternoon M2 PT-IP Current Condition Start: 01/11/22 12:54 Freq: NEEDED Status: Active Protocol: Document 01/11/22 10:13 AB (Rec: 01/11/22 13:10 AB [id number]) Physical Therapy Current Condition Current Condition Evaluation Date 01/11/22 Treatment Diagnosis s/p R TKA; difficulty in walking Onset Date 01/10/22 M3 PT-IP Subjective Start: 01/11/22 12:54 Freq: NEEDED Status: Active Protocol: Document 01/11/22 10:13 AB (Rec: 01/11/22 13:10 AB [id number]) Subjective Physical Therapy Visit Type Type Initial Evaluation Visit Start Time 10:13 Visit Stop Time 11:08 Total Visit Minutes 55 Number of PATROL DRIVER Visits 0 Physical Therapy Visit Comments Patient Comments agreeable to do PT M4 PT-IP Mobility and Gait Start: 01/11/22 12:54 Freq: NEEDED Status: Active Protocol: Document 01/11/22 10:13 AB (Rec: 01/11/22 13:10 AB [id number]) PT-Bed Mobility Assessment Supine to Sit Supine to Sit Standby Assistance PT-Transfer Assessment Sit to and From Stand Sit to and from Stand Minimal Assistance,Moderate Assistance,1 Person Assistance ,Use of Upper Extremities Equipment Transfer Assistive Device Gait Belt,Front Wheeled Walker Orthotic/Prosthetic Devices or Brace: No Transfers Transfer Destination Chair Transfer Technique ambulated Transfer Ability Level of Assist Minimal Assistance,Moderate Assistance,1 Person Assistance ,Use of Upper Extremities Comments Mobility Comments completed supine to sit SBA. able to sit on EOB SBA. completed sit to stand x3 attempts and with difficulty to get to upright position. educated on techniques and posture. completed sit to stand again x 4 reps mod A but completed min A after 2 reps. ambulated to the chair using FWW min to mod A and max cues for steadiness. presents with stooped posture and (+) LOB x 2 requiring min A and cues for steadiness and safety. caregiver training conducted. educated spouse on use of safety belt and how to assist pt. spouse was able to put safety belt on x 2 tries but continues to require cues on how to put on pt. spouse assisted pt with sit to stand and ambulated with pt in room ~ 20 ft min to mod A and cues. pt agreed to sit on the chair. positioned on the chair. call light and table placed within reach. further caregiver training is needed and set up training again this afternoon at 130 pm . informed pt and spouse regarding safety and stair climbing technique and agreed to do steps through the front door using L rail + SPC. will conduct when appropriate Gait Assessment Gait Gait Assistance Required: Minimum Assistance,Moderate Assistance Distance (Feet) 20 Able to Maintain Weight Bearing Status Yes During Gait Assistive Devices Assistive Device Gait Belt,Front Wheeled Walker Orthotic/Prosthetic Devices or Brace: No Gait Deviations General Gait Pattern Decreased Stride Length, Decreased Feet Clearance, Flexed Trunk Factors Limiting Gait Function Factors Limiting Gait Function Decreased Activity Tolerance, Decreased Strength,Difficulty Following Directions,Limited Range of Motion,Pain,Poor Balance,Poor Safety Awareness PT-Balance Assessment Sitting Balance and Reactions Static Sitting Balance Ability Good Dynamic Sitting Balance Ability Good Standing Balance and Reactions Static Standing Balance Ability Fair Dynamic Standing Balance Ability Poor Device Used FWW M5 PT-IP Objective Assessments Start: 01/11/22 12:54 Freq: NEEDED Status: Active Protocol: Document 01/11/22 10:13 AB (Rec: 01/11/22 13:10 AB [id number]) Orientation Orientation/Cognition Level of Alertness Alert Orientation Name Language Function Ability Hard of Hearing Safety Awareness Decreased Safety Awareness Memory Description Short Term Impaired,Help Aid Impaired Gross Range of Motion Lower Extremity ROM Impairments R knee flexion: ~ 70 deg Strength Lower Extremity Strength Assessment Right Impaired Hip 4-/5 Knee 3+/5 Sensation Assessment Sensation Gross Sensation WNL Muscle Tone Muscle Tone WNL Yes M6 PT-IP Treatment Start: 01/11/22 12:54 Freq: NEEDED Status: Active Protocol: Document 01/11/22 10:13 AB (Rec: 01/11/22 13:10 AB [email or web address]) Physical Therapy Treatment Education Education Provided Precautions,Weight Bearing Status,Post-Op Packet,Safety M7 PT-IP Assessment and Plan Start: 01/11/22 12:54 Freq: NEEDED Status: Active Protocol: Document 01/11/22 10:13 AB (Rec: 01/11/22 13:10 AB [email or web address]) PT Summary Assessment and Plan Potential Rehabilitation Potential Fair Status of Condition at Evaluation Evolving Summary Impairments Pain,ROM,Strength,Balance, Coordination,Sensation,Tone, Cognition,Bed Mobility, Transfers,Gait,Activity Tolerance Assessment Summary pt requiring min to mod A with mobility using FWW. caregiver training initiated but further training is needed. Caregiver training set up this afternoon at 130 pm. Pt also has dx of PD affecting mobility. will continue to assess progress. pt also needs to be able to complete stair training prior to d/c home. pt stated that he has out pt PT set up. Goals Bed Mobility Goal Independent Transfer Goal Standby Assistance,Front Wheeled Walker Gait Goal Standby Assistance,Front Wheel Walker Gait Distance 150 Other Goals up/down 2 steps L rail asceding + SPC CGA Days to Meet Goals 5 Frequency of Treatment Frequency Of Treatment Twice a Day Treatment Plan Physical Therapy Treatment Plan Bed Mobility Training,Transfer Training,Gait Training, Therapeutic Exercise,Balance Retraining,Post Op Education, Discharge Planning,Hot or Cold Pack,Neuromuscular Re-ed, Coordination Retraining,Manual Therapy Other Recommendations and Next Treatment cargiver training 01/11 @ 130 Focus pm Weight Bearing Status Weight Bearing Status Weight Bear as Tolerated Allowed Weight Bearing Amount (enter % RLE WBAT or #) (%) Recommendations To Nursing Amount of Assist Needed 1 Person Assist Discharge Recommendations PT Discharge Recommendations Home with 25/12 Assist Available,Home Health, Outpatient PT Transportation Needs at Discharge Private Vehicle
--- NOTE | 2022-01-11 11:21 | CM.DANOTE ---
DCP: Case received, EMR reviewed and met with patient. Spouse, Emily Lu, was also at bedside. Introduced self and role. Was able to obtain information regarding patient's baseline activity status at home prior to his surgery. DCP assessment completed with information currently available. Patient is a 81 year male who admitted yesterday morning to the care of the orthopedic team. PCP: Dr. Sepulevda. Payer: confirmed: Medicare. Patient came to the hospital via private vehicle for a surgical procedure. Patient had right total knee arthroplasty. Patient has history of arthritis. Notes indicate that patient also has history of severe patellofemoral Parkinson's. Met with patient in his room, and spouse, Emily. Confirmed that they both reside in [place]. Patient is currently getting outpatient P.T. at [facility], according to spouse. At his baseline, he uses a cane and walker. He is still driving. Spouse indicated that they have a personal fitness manager to assist patient as well, and will be going with him to his outpatient P.T. appointments. They have two stairs to enter the home. P: DCP to continue to follow. Patient has not yet worked with P.T. as of yet. Patient should be able to go home when stable, will determine if he can continue with outpatient P.T. versus home health. Emma Pike RN/Hazardous Waste Technician Discharge Planning/Care Management Advanced directive, confirm from FAMILY Start: 01/10/22 16:17 Freq: Q24H Status: Active Protocol: Document 01/10/22 16:17 AK (Rec: 01/10/22 16:17 [facility] [id number]) Advance Directive, confirm on record Time 16:17 Person contacted to bring in when available. Copy received No CM Discharge Assessment Start: 01/11/22 11:12 Freq: Status: Active Protocol: Document 01/11/22 11:12 (Rec: 01/11/22 11:21 [id number]) Discharge Planning Assessment Assigned Concrete Crusher Loader Operator Emma Pike RN/commercial lines account manager Advance Directives? Yes Advance Directives on File No History Provided By Patient,Family Member,Medical Record Prior Living Arrangements House Household Members spouse Type of transporation used prior to Drives own vehicle admit Willing to Return to Facility? No Independent with ADL's Yes Is patient alert and oriented? Yes Needs Assistance With Meal Prep,Home Chores / Shopping Caregiver for Another No DME Already Rented / Owned FWW / Walker,Cane Patient/Family Preference OP PT Therapy Comment Patient is currently getting outpatient P.T. with [email or web address]. Barriers to Discharge No Comment Patient has supportive spouse , and personal fitness manager. Discharge Plan Home Transportation Arrangement Spouse Referrals Initiated Other Additional Comment Patient has not yet worked with P.T. to determine if patient may need home health, verus continuing outpatient P. T. Whiteboard Updated in Patient Room with Yes name and ext. # of Concrete Crusher Loader Operator Review Status In Process Next Review Type Continued Stay Review Pre-Anesthesia Assessment Start: 12/19/21 07:39 Freq: Status: Complete Protocol: Document 12/19/21 07:39 [facility] (Rec: 12/19/21 08:19 CAB [id number]) Pre-Anesthesia Assessment PAC Comment Pt to bring DBS remote to turn off Preferred Name Amol Patient Information Reviewed Via Phone Assessment Assessment Completed With Patient,Spouse Diagnostic Results EKG Comment Labs/ECG(ECG only scanned) done [facility] [place] screen @ [facility] - needs to schedule Primary Care Provider Dipesh Rosario Medical Clearance Received Yes Seen Specialist in Last 12 Months Yes Specialist Seen Driver Trainer,Orthopedist, Other Comment PCP visit w/clearance and Neurology visit 09/13/21 scanned Primary Language Comoran Preferred Language Com[place]an Placement Manager Required No Height 5 ft 10 in Weight 175 lb Body Mass Index (BMI) 25.1 Hearing Ability Hard of Hearing,Use of Hearing Aid Visual Assist Glasses Dentition Type Full- Lower Barriers to Learning Auditory,Cognitive impairment Comment Pt has Parkinson, mild dementia Hx Anesthesia Reactions No Hx Family Anesthesia Reaction No Hx Malignant Hyperthermia No Hx Blood Transfusions Yes: r/t GI bleed '18 Hx Blood Transfusion Reaction No Anesthesia Review Requested Yes: Surgeon requested re: Abnormal ECG Solar Energy Specialist No alcohol intake current alcohol intake frequency a few times a week Smoking Status Former smoker how long ago did patient quit smoking 50 years ago Pain Present Pain Reported Musculoskeletal Symptoms Abnormal Gait,Difficulty Walking,Joint Pain History of Falling (Recent or History of No ) Patient is completely paralyzed or No completely immobile Prosthesis or Orthotic Device Cane,Front Wheel Walker Mental Status Oriented to own ability Is patient on oxygen? No Does patient have MIRZA/SOB No Hx Sleep Apnea No: Pt denies Currently Taking a Beta Arabella No Hx Chest Pain No Hx SOB No Hx Syncope or Dizziness No Anti-Coagulant Therapy No Has a Mobile Sales Consultant Yes: Dr. Juares Cardiac Testing No Hx Pacemaker/ICD No Pacemaker Rep Required? No Comment Morning exercises, frequent walking Diet Type At Home Regular dysphagia No Bladder Pattern Frequency,Nocturia Urinary Catheter Present No Hx Urinary Self Catheterization No Diabetes No Hx Drug Resistant Organism No Presence of External or Internal Medical Yes: Deep brain stim, Devices Have you had any close contact with No someone diagnosed with COVID-19? Received a COVID vaccine? Yes Received all doses? Yes Marital Status Lives With spouse Prior Living Arrangements House Support System Spouse Does the Patient Have Assistance After Yes Surgery Patient Discharge Plan Description Return Home Comment Pt not advised on length of stay per surgeon Feels Safe in Current Environment Yes Been Physically Hurt or Threatened By a No Person in Current Environment Do you have thoughts of harming yourself None or others? Are you currently considering suicide? No Do you have a plan to hurt yourself or No Plan others? Do You Have Any Spiritual Beliefs That No May Affect Your HC Choices? Do You Have Any Cultural Practices That No May Affect Your HC Choices? Comment Tenriism Who Can We Speak to About Patient's Care Family, friends Identifying Code for Release of Patient Declines to issue Information Health Care Proxy/Next of Kin Emily () Health Care Proxy [phone] Emergency Contact Name Emily () Emergency Contact [phone] Advance Directives? Yes Advance Directives on File No Requested Patient Bring Advanced Yes Directives DOS Power of Automatic Quilling Machine Operator Yes Power of Automatic Quilling Machine Operator Name Emily () Power of Automatic Quilling Machine Operator [phone] PAC Instructions Durable medical equipment, Medications to take/avoid, Nasal antibiotic,No ETOH/ petroleum product on skin DOS, NPO,Post-op transportation, Sensory aids,Sturdy shoes/ comfortable clothes,Do not bring valuables and remove jewelry
--- NOTE | 2022-01-11 13:22 | PM.DS.1 ---
History of Present Illness History of Present Illness Date Patient Seen: 01/11/22 Time Patient Seen: 07:35 Chief complaint: OPB Narrative: Patient is complaining of moderate left knee pain this morning. He has not worked with physical therapy yet. His is at bedside. He has a history of Parkinson's but notes he is doing well with his current medications. Overall he is feeling well, and would like to be discharged home today. Discharge Providers Provider Discharge Date: 01/11/22 Primary care physician: Dipesh Rosario MD Consults: 12/19/21 14:50 Consult to Anesthesiology Routine Comment: Consulting Provider: Anesthesiologist Reason for consultation: Surgeon requested re; abnormal ECG 01/10/22 08:37 Consult to Anesthesiology Routine Comment: Consulting Provider: Anesthesiologist Reason for consultation: Regional block for post operative pain control 01/10/22 14:47 Consult to Discharge Planning Routine Comment: Consult to Physical Therapy Evaluate & Treat Comment: Physician Instructions: postop TKA protocol Consult to Respiratory Therapy Evaluate & Treat Comment: Physician Instructions: Evaluate and treat Discharge provider: Sharon Fry PA-C Summary Hospital Course Discharge Diagnosis: -right knee osteoarthritis -Parkinson's disease Hospital Course: Operative Date/Time/Diagnoses Date of procedure: 01/10/22 Time of procedure: 11:20 Procedure & Clinicians Procedure: Right total knee arthroplasty Same procedure as scheduled: Yes Indications: The patient has had progressively worsening right knee pain with radiographic changes consistent with arthritis.? He was noted to have severe patellofemoral osteoarthritis with lateral subluxation of his patella.? Non-operative management has failed and the patient has requested total knee replacement. The risks, benefits and alternatives to surgery were discussed with the patient prior to proceeding. Risks discussed included, but were not limited to, failure to relieve pain, stiffness, infection, nerve damage, deep venous thrombosis, pulmonary embolism, stroke, coma, heart attack, permanent paralysis and , as well as the potential need for eventual revision of the prosthetic. Surgeon: Jen Nolasco Press Operator: Joao Alexander Anesthesia Type: General Operative Notes Findings: Severe right knee osteoarthritis with severe destruction of his patellofemoral joint and severe destruction of his femur especially laterally along the trochlear groove. Closure Type: primary Specimen(s): none sent Prosthetic devices, grafts, tissues, transplants, or devices: Nolasco and Nephew Kirsten BCS 2 size 6 femur, size 5 tibia, +9 poly, 38 mm round patella Estimated Blood Loss (mL): 250 Blood products transfused: none Tourniquet time (min): 76 Status at Discharge Cognitive/behavioral status at discharge: at baseline, oriented Functional status at discharge: uses cane/walker Overall status at discharge: patient is progressing back to baseline Exam Vital Signs (past 8 hours): - 01/11/22 08:00 01/11/22 11:45 Temperature 97.0 F L 97.2 F L Pulse Rate 45 L 49 L Respiratory Rate 16 16 Blood Pressure 115/52 L 113/57 L Pulse Oximetry 96 95 Oxygen Flow Rate 0 0 Oxygen Delivery Method Room Air Oxygen Flow Rate 0 Narrative Exam Narrative: 81-year-old male, resting comfortably in bed, no acute distress. His is at bedside. Dressing is clean, dry, intact. Bilateral lower extremity: Motor functions are grossly intact, sensation is grossly intact to light touch, calves are soft and nontender palpation. Objective Labs Result Diagrams: 01/11/22 05:03 Labs: Laboratory Results - last 24 hr 01/11/22 05:03 Hgb 12.2 L Hct 35.4 L PFSH Medical History Anxiety CAD (coronary artery disease) Club foot of both lower extremities GI bleed (03/05/18) Hypertension Hypothyroidism Parkinson disease Skin cancer Surgical History History of aortic valve replacement with porcine valve S/P deep brain stimulator placement (2019) Social History household members: spouse Smoking Status: Former smoker alcohol intake: current Discharge Assessment & Plan Assessment and Plan Assessment: -stable status post left total knee arthroplasty -Parkinson's disease Plan of Treatment: -mobilize with PT. Weightbearing as tolerated with front wheel walker. -continue with multimodal pain management. I cautioned him with taking too many narcotics with his Parkinson's disease, he and his verbalized understanding. -continue with aspirin 81 mg b.i.d. x6 weeks for DVT prophylaxis -DC home today once cleared by PT. His has hired a caregiver for home. Discharge Plan Discharge Plan Patient Disposition: Home Discharge orders & Medications Discharge Orders: Discharge (Order); Ordered 01/11/22 Ordered By: Sharon Fry Prescriptions: New aspirin 81 mg Tablet,Delayed Release (Dr/Ec) 81 mg PO BID 42 Days Qty: 84 0RF Rx Instructions: Prevent blood clots docusate sodium 100 mg Capsule 100 mg PO BID PRN (Reason: Constipation from narcotic pain meds) Qty: 20 0RF ibuprofen 400 mg Tablet 400 mg PO Q4HR MDD Max 2400 mg per day PRN (Reason: Pain/inflammation) Qty: 90 0RF oxycodone 5 mg Tablet See Rx Instructions .ROUTE .COMPLEX PRN (Reason: Pain, Moderate (4-6)) Qty: 42 0RF Rx Instructions: Take 1/2-1 tablets by mouth every 4 hours as needed for moderate to severe postop pain acetaminophen 500 mg capsule 500 mg PO Q4H MDD Max 3000 mg per day PRN (Reason: fever or pain) Qty: 90 0RF Continued losartan 50 mg Tablet 50 mg PO BEDTIME carbidopa-levodopa 50-200 mg Tablet Extended Release 1 tab PO BID Label Comments: Takes at 0800, 1800 amlodipine 2.5 mg Tablet 2.5 mg PO BID entacapone 200 mg Tablet 200 mg PO TID Rx Instructions: administer at the same time as l-dopa/carbidopa dose levothyroxine 50 mcg Tablet 50 mcg PO DAILY carbidopa-levodopa 25-100 mg Tablet 2 tab PO Q2H Label Comments: Pt takes 2 tabs every 2.5 hours ropinirole 8 mg Tablet Extended Release 24 Hr 8 mg PO BEDTIME lorazepam 0.5 mg Tablet 0.5 mg PO BID PRN (Reason: Anxiety) Follow up/Referrals: Dipesh Rosario MD [Primary Care Provider] - Jen Nolasco MD [Physician] - (10-14 days for postoperative visit) Diet/Activity/Treatments Diet: Diet as Tolerated Other treatments: Medications: -Aspirin 81mg twice daily x6 weeks to prevent blood clots. -OTC Tylenol 500 mg 1 tablet every 4 hours as needed for pain/fever. Max 6 tablets per day. -Ibuprofen 400 mg 1 tablet every 4 hours as needed for pain/inflammation. Max 2,400 mg per day. -Oxycodone 5 mg take 1/2-1 tablets every 4 hours as needed for moderate-severe pain (narcotic pain medication). Can take 2 tabs if in extreme pain. -As needed medications: -Ducolax and /or MiraLax as needed for constipation from narcotic pain medications. -Pepcid AC as needed for stomach upset (usually from aspirin or ibuprofen). Dressing/Wound care: -Remove the Clarence wrap 48 hours after surgery. -Keep Aquacell dressing in place until postoperative follow-up office visit. -Okay to shower. Keep wound out of direct water stream. No soaking or submerging until all the scabs fall off (approximately 4-6 weeks). -No lotions, ointments, or scar creams directly to the incision until the wound is healed (4-6 weeks), -Please call the office if dressing becomes wet, soiled, or saturated. Activities: -Weight-bearing as tolerated. Use front wheeled walker, and progress to cane when safe. -Continue with home exercises as directed by your physical therapist. -Elevate ?toes above the nose if you have significant swelling in your lower leg. (A wedge pillow is easiest.) -Ice your incision as needed for pain/inflammation/swelling. Protect your skin with a folded pillowcase. -Incentive Spirometer (breathing device from hospital): 5-10xs every hour while awake for the first 1-2 weeks. Follow-up: -Follow-up with your surgeon or PA in the office in 10-14 days after surgery. -Follow-up with your surgeon 6 weeks postoperatively. Call the office if you have chest pain, shortness of breath, significant swelling that will not resolve with elevating, fever over 101?, significantly worsening pain, or are concerned you might need to go to the Emergency Room. [facility]: [phone] Skin/Wound/Dressing Care Report to your healthcare provider any signs of infection, such as:: chills, fever, night sweats, unusual drainage and unusual redness Visit Report/Discharge Packet Instructions: DI for Knee Replacement Stand Alone Forms: Surgery Discharge Discharge Data Primary Care Provider: Dipesh Rosario Attending Provider: Jen Nolasco
--- NOTE | 2022-01-11 14:09 | PT.IPTN ---
Current Diagnoses Parkinson's disease (01/10/22) Unilateral primary osteoarthritis, right knee (01/10/22) Surgery Performed Operation Date: 01/10/22 10:45 Actual Procedures p Total Knee Arthroplasty(Right) - Jen Nolasco MD Physical Therapy Treatment Note M2 PT-IP Current Condition Start: 01/11/22 12:54 Freq: NEEDED Status: Active Protocol: Document 01/11/22 10:13 AB (Rec: 01/11/22 13:10 AB [id number]) Physical Therapy Current Condition Current Condition Evaluation Date 01/11/22 Treatment Diagnosis s/p R TKA; difficulty in walking Onset Date 01/10/22 M3 PT-IP Subjective Start: 01/11/22 12:54 Freq: NEEDED Status: Active Protocol: Document 01/11/22 13:45 KS (Rec: 01/11/22 14:30 KS [id number]) Subjective Physical Therapy Visit Type Type Treatment Note Visit Start Time 13:45 Visit Stop Time 14:09 Total Visit Minutes 24 Notes present for caregiver training Number of ENROLLMENT COUNSELOR Visits 1 Physical Therapy Visit Comments Patient Comments agreeable to do PT M4 PT-IP Mobility and Gait Start: 01/11/22 12:54 Freq: NEEDED Status: Active Protocol: Document 01/11/22 13:45 KS (Rec: 01/11/22 14:30 KS [id number]) PT-Bed Mobility Assessment Supine to Sit Supine to Sit Standby Assistance Scooting Scooting to Edge of Bed Contact Guard Assistance PT-Transfer Assessment Sit to and From Stand Sit to and from Stand Minimal Assistance,1 Person Assistance,Use of Upper Extremities Equipment Transfer Assistive Device Gait Belt,Front Wheeled Walker Orthotic/Prosthetic Devices or Brace: No Transfers Transfer Destination Chair Transfer Technique ambulated Transfer Ability Level of Assist Minimal Assistance,1 Person Assistance,Use of Upper Extremities Comments Mobility Comments Pt in bed upon arrival and present for caregiver training. Pt SBA for sup<>sit, CGA for scooting EOB. Pts stated she felt comfortable applying gait belt and assisting pt to stand, however required verbal and tactile cues for both and after applying gait belt still attempted to pull pt up from hospital gown. Following cues, she was able to perform correctly. Pt sit<>stand Min A w/ FWW and c/o increased pain (8/10) but agreed to ambulate . He first performed marching in place, difficulty elevating LLE due to pain w/ WB on RLE. He then ambulated ~20 ft to chair w/ FWW CGA by his . He practiced 3 additional sit< >stands w/ FWW w/ providing Min A. Pts continues to try using overhand senior architect/design manager despite many cues for underhand senior architect/design manager, but ultimately was able to perform correctly on pts last sit<> stand. Pt now c/o of 9/10 pain and not able to complete stair training this PM. Will need to complete stair training and further caregiver training tomorrow due to pts having poor carryover and difficulty following instructions. Pt left in chair w/ all needs in reach. Gait Assessment Gait Gait Assistance Required: Contact Guard Assist,Minimum Assistance,1 Person Assist Distance (Feet) 20 Able to Maintain Weight Bearing Status Yes During Gait Assistive Devices Assistive Device Gait Belt,Front Wheeled Walker Orthotic/Prosthetic Devices or Brace: No Gait Deviations General Gait Pattern Decreased Stride Length, Decreased Feet Clearance, Flexed Trunk Factors Limiting Gait Function Factors Limiting Gait Function Decreased Activity Tolerance, Decreased Strength,Difficulty Following Directions,Limited Range of Motion,Pain,Poor Balance,Poor Safety Awareness Comments Gait Comments Pts able to provide assist, needs cues for upright posture and obstacle avoidance w/ FWW. Stair Climbing Assessment Comments Stair Climbing Comments Not able to assess d/t pts high level of fatigue and 9/10 pain. PT-Balance Assessment Sitting Balance and Reactions Static Sitting Balance Ability Good Dynamic Sitting Balance Ability Good Standing Balance and Reactions Static Standing Balance Ability Fair Dynamic Standing Balance Ability Fair Device Used FWW M5 PT-IP Objective Assessments Start: 01/11/22 12:54 Freq: NEEDED Status: Active Protocol: Document 01/11/22 10:13 AB (Rec: 01/11/22 13:10 AB [id number]) Orientation Orientation/Cognition Level of Alertness Alert Orientation Name Language Function Ability Hard of Hearing Safety Awareness Decreased Safety Awareness Memory Description Short Term Impaired,Senior Care Impaired Gross Range of Motion Lower Extremity ROM Impairments R knee flexion: ~ 70 deg Strength Lower Extremity Strength Assessment Right Impaired Hip 4-/5 Knee 3+/5 Sensation Assessment Sensation Gross Sensation WNL Muscle Tone Muscle Tone WNL Yes M6 PT-IP Treatment Start: 01/11/22 12:54 Freq: NEEDED Status: Active Protocol: Document 01/11/22 13:45 KS (Rec: 08/10/22 14:30 KS [id number]) Physical Therapy Treatment Exercises Exercises Ankle Pumps,Gluteal Sets,Quad Sets,Heel Slides Education Education Provided Precautions,Weight Bearing Status,Post-Op Packet,Safety M7 PT-IP Assessment and Plan Start: 01/11/22 12:54 Freq: NEEDED Status: Active Protocol: Document 01/11/22 13:45 KS (Rec: 01/11/22 14:30 KS [id number]) PT Summary Assessment and Plan Potential Rehabilitation Potential Fair Summary Impairments Pain,ROM,Strength,Balance, Coordination,Sensation,Tone, Cognition,Bed Mobility, Transfers,Gait,Activity Tolerance Progress Towards Goals Slow Progress due to Pain,Slow Progress due to Medical Issues,Slow Progress due to Activity Tolerance Assessment Summary Pt showing some progress however unable to tolerate stair training due to high level of fatigue and 9/10 pain following 20 ft ambulation w/ FWW. Pts needs additional caregiver training (scheduled for 9 AM tomorrow) as she had poor carryover from this AM and has difficulty following instructions for providing assistance to pt. Not yet safe to return home, will need additional treatment to complete stairs and caregiver training. Goals Bed Mobility Goal Independent Transfer Goal Standby Assistance,Front Wheeled Walker Gait Goal Standby Assistance,Front Wheel Walker Gait Distance 150 Other Goals up/down 2 steps L rail asceding + SPC CGA Days to Meet Goals 5 Frequency of Treatment Frequency Of Treatment Twice a Day Treatment Plan Physical Therapy Treatment Plan Bed Mobility Training,Transfer Training,Gait Training, Therapeutic Exercise,Balance Retraining,Post Op Education, Discharge Planning,Hot or Cold Pack,Neuromuscular Re-ed, Coordination Retraining,Manual Therapy Other Recommendations and Next Treatment cargiver training 01/12 @ 9 AM Focus Weight Bearing Status Weight Bearing Status Weight Bear as Tolerated Allowed Weight Bearing Amount (enter % RLE WBAT or #) (%) Recommendations To Nursing Amount of Assist Needed 1 Person Assist Discharge Recommendations PT Discharge Recommendations Home with 25/12 Assist Available,Home Health, Outpatient PT Transportation Needs at Discharge Private Vehicle
--- NOTE | 2022-01-11 14:37 | PC.NURSE ---
Discharge instructions reviewed with patient and at bedside. Thoroughly reviewed medications to take and sched. Patient and spouse state understanding of instructions and information provided in packet. Aid in room to assist in dressing patient and call placed to caregiver for cone picker.
[2022-01-11] MEDS: LORazepam 0.5 MG TABLET PO (17:46)
--- NOTE | 2022-01-11 18:52 | PC.NURSE ---
Discharge orders came in today however PT did not recommend pt go today because she felt that they needed further caregiver training and would like to keep pt and meet with them again at 09 morning, pt agreeable. Provider was notified and RN was told OK to leave IV out, because IV was discharged today. Pt is comfortable and reports that his pain is only at 4-5 unless walking around. Pt requests Ativan PRN for restless leg at around 1800.
[2022-01-11] MEDS: ROPINIROLE 1 MG TABLET 2.5 MG PO (20:33)
--- NOTE | 2022-01-11 21:48 | PC.NURSE ---
Patient is alert and oriented. [place] with bilateral hearing aids. Breath sounds CTA with RA sat of 96%. HRR but continues to be bradycardic with rate of 50 so BP meds held again tonight. Denies nausea. BT hypoactive but has been passing flatus. Denies dysuria, frequency or urgency with urination; using urinal at bedside. Is able to move himself in bed. Gait not assessed but reportedly gets up with walker and 1 assist. States pain in right knee is controlled and rates severity as 2/10 at rest and 4/10 with movement; medicated with scheduled Tylenol and Ibuprofen but declines narcotic pain medication at this time. Aquacel dressing to right knee covered with ame wrap is CDI. CMS is intact and is able to lift leg well off bed. Applied bilateral calf SCD's for the night. Fall risk score is high and bed alarm is activated. Tremors noted in bilateral UE related to Parkinson's. rooming in.
[2022-01-12] MEDS: ACETAMINOPHEN 325 MG TABLET 650 MG PO ×2 (00:36→05:33)
[2022-01-12] MEDS: IBUPROFEN 400 MG TABLET PO ×3 (00:36→08:34)
[2022-01-12] MEDS: CARBIDOPA-LEVODOPA 25/100 TABLET 2 EACH PO ×5 (01:48→10:49)
[2022-01-12 04:27] VITALS: BP 148/73; PULSE 56; RESP 17; TEMP 36.3; O2SAT 98
[2022-01-12] MEDS: LEVOTHYROXINE 50 MCG TABLET PO (06:25)
[2022-01-12 08:25] VITALS: BP 133/68; PULSE 57
[2022-01-12] MEDS: AMLODIPINE 5 MG TABLET 2.5 MG PO (08:33)
[2022-01-12] MEDS: ENTACAPONE 200 MG TABLET PO (08:33)
[2022-01-12] MEDS: CARBIDOPA-LEVODOPA ER 50/200 TABLET 1 EACH PO (08:33)
[2022-01-12] MEDS: ROPINIROLE 1 MG TABLET 2.5 MG PO (08:34)
[2022-01-12] MEDS: ASPIRIN EC 81 MG TABLET PO (08:34)
[2022-01-12] MEDS: DOCUSATE 100 MG CAPSULE PO (08:34)
[2022-01-12 08:35] VITALS: BP 133/68; PULSE 56; RESP 18; TEMP 36.3; O2SAT 98
[2022-01-12 09:19] LABS: Hematocrit 36.4 % (41-53); Hemoglobin 12.7 g/dL (13.5-17.5)
--- NOTE | 2022-01-12 09:39 | PT.IPTN ---
Current Diagnoses Parkinson's disease (01/10/22) Unilateral primary osteoarthritis, right knee (01/10/22) Surgery Performed Operation Date: 01/10/22 10:45 Actual Procedures p Total Knee Arthroplasty(Right) - Jen Nolasco MD Physical Therapy Treatment Note M2 PT-IP Current Condition Start: 01/11/22 12:54 Freq: NEEDED Status: Discharge Protocol: Document 01/11/22 10:13 AB (Rec: 01/11/22 13:10 AB [id number]) Physical Therapy Current Condition Current Condition Evaluation Date 01/11/22 Treatment Diagnosis s/p R TKA; difficulty in walking Onset Date 01/10/22 M3 PT-IP Subjective Start: 01/11/22 12:54 Freq: NEEDED Status: Discharge Protocol: Document 01/12/22 09:00 KS (Rec: 01/12/22 12:37 KS [id number]) Subjective Physical Therapy Visit Type Type Treatment Note Visit Start Time 09:00 Visit Stop Time 09:39 Total Visit Minutes 39 Notes present for caregiver training Number of ROW BOSS Visits 2 Physical Therapy Visit Comments Patient Comments agreeable to do PT M4 PT-IP Mobility and Gait Start: 01/11/22 12:54 Freq: NEEDED Status: Discharge Protocol: Document 01/12/22 09:00 KS (Rec: 01/12/22 12:37 KS [id number]) PT-Bed Mobility Assessment Scooting Scooting to Edge of Bed Contact Guard Assistance PT-Transfer Assessment Sit to and From Stand Sit to and from Stand Contact Guard Assistance,1 Person Assistance,Use of Upper Extremities Equipment Transfer Assistive Device Gait Belt,Front Wheeled Walker Orthotic/Prosthetic Devices or Brace: No Transfers Transfer Destination Chair,Wheelchair Transfer Ability Level of Assist Contact Guard Assistance, Minimal Assistance,1 Person Assistance,Use of Upper Extremities Comments Mobility Comments Pt in chair upon arrival and present for continuation of caregiver training. Pt reporting 3/10 pain prior to therapy. still unable to apply gait belt or provide proper assist w/ FWW and sit<> stand w/o max cues. Pt able to stand CGA from chair. He then ambulated to w/c in hallway w / FWW CGA by and transport to practice stairs for energy conservation. Pt able to ascend/descend 3 steps w/ L rail SBA to CGA - having difficulty assisting pt due to confusion and poor balance, but pt able to complete w/o physical assist. Pt then returned to w/c, but ambulated final 25 ft to chair w/ FWW CGA. Pt has better awareness of sequencing and safety than his at this time, but also they have hired a caregiver who will assist at home and drive pt to OPPT appointments. Gait Assessment Gait Gait Assistance Required: Standby Assistance,Contact Guard Assist,1 Person Assist Distance (Feet) 25 Able to Maintain Weight Bearing Status Yes During Gait Assistive Devices Assistive Device Gait Belt,Front Wheeled Walker Orthotic/Prosthetic Devices or Brace: No Gait Deviations General Gait Pattern Decreased Stride Length, Decreased Feet Clearance, Flexed Trunk Factors Limiting Gait Function Factors Limiting Gait Function Decreased Activity Tolerance, Decreased Strength,Difficulty Following Directions,Limited Range of Motion,Pain,Poor Balance,Poor Safety Awareness Comments Gait Comments Pt limited in gait distance by pain and low activity tolerance, but able to ambulate short distances w/ FWW SBA to CGA. Stair Climbing Assessment Evaluation Level of Assist On Stairs Standby Assistance,Contact Guard Assistance,1 Person Assistance Devices Stair Climbing Assistive Devices Left Railing Technique/Endurance Stair Climbing Direction Ascend and Descend Stair Climbing Technique Step to Step Number of Steps Climbed 3 Stair Climbing Set # Repetitions (reps) 1 Comments Stair Climbing Comments Pt ascended/descended 3 steps w/ BUE using L rail and step to pattern. Pt aware of leg sequencing w/o cues and feels confident to do 2 stairs leading into home - reports he has hired experienced caregiver to assist. Pts had trouble assisting, but pt completed w/o physical assist from . PT-Balance Assessment Sitting Balance and Reactions Static Sitting Balance Ability Good Dynamic Sitting Balance Ability Good Standing Balance and Reactions Static Standing Balance Ability Fair Dynamic Standing Balance Ability Fair Device Used FWW M5 PT-IP Objective Assessments Start: 01/11/22 12:54 Freq: NEEDED Status: Discharge Protocol: Document 01/11/22 10:13 AB (Rec: 01/11/22 13:10 AB [id number]) Orientation Orientation/Cognition Level of Alertness Alert Orientation Name Language Function Ability Hard of Hearing Safety Awareness Decreased Safety Awareness Memory Description Short Term Impaired,Correction Impaired Gross Range of Motion Lower Extremity ROM Impairments R knee flexion: ~ 70 deg Strength Lower Extremity Strength Assessment Right Impaired Hip 4-/5 Knee 3+/5 Sensation Assessment Sensation Gross Sensation WNL Muscle Tone Muscle Tone WNL Yes M6 PT-IP Treatment Start: 01/11/22 12:54 Freq: NEEDED Status: Discharge Protocol: Document 01/12/22 09:00 KS (Rec: 01/12/22 12:37 KS [id number]) Physical Therapy Treatment Education Education Provided Precautions,Weight Bearing Status,Post-Op Packet,Safety Other Treatments Other Treatment Performed Discussed safety at length, reviewed gait belt application , sit<>stand assist numerous times for pts to perform correctly. M7 PT-IP Assessment and Plan Start: 01/11/22 12:54 Freq: NEEDED Status: Discharge Protocol: Document 01/12/22 09:00 KS (Rec: 01/12/22 12:37 KS [id number]) PT Summary Assessment and Plan Potential Rehabilitation Potential Fair Summary Impairments Pain,ROM,Strength,Balance, Coordination,Sensation,Tone, Cognition,Bed Mobility, Transfers,Gait,Activity Tolerance Progress Towards Goals Slow Progress due to Pain,Slow Progress due to Medical Issues,Slow Progress due to Activity Tolerance Assessment Summary Pt remains limited by pain and low tolerance for activities, but was able to ambulate w/ FWW and complete stair training today. Pts had very poor carryover from previous caregiver training and needed max cues to assist pt correctly, but eventually was able to provide. Pt and state they feel safe to return home and have hired a caregiver who will assist pt and drive him to OPPT appointments as his does not drive. Goals Bed Mobility Goal Independent Transfer Goal Standby Assistance,Front Wheeled Walker Gait Goal Standby Assistance,Front Wheel Walker Gait Distance 150 Other Goals up/down 2 steps L rail asceding + SPC CGA Days to Meet Goals 5 Frequency of Treatment Frequency Of Treatment Twice a Day Treatment Plan Physical Therapy Treatment Plan Bed Mobility Training,Transfer Training,Gait Training, Therapeutic Exercise,Balance Retraining,Post Op Education, Discharge Planning,Hot or Cold Pack,Neuromuscular Re-ed, Coordination Retraining,Manual Therapy Weight Bearing Status Weight Bearing Status Weight Bear as Tolerated Allowed Weight Bearing Amount (enter % RLE WBAT or #) (%) Recommendations To Nursing Amount of Assist Needed 1 Person Assist Discharge Recommendations PT Discharge Recommendations Home with 25/12 Assist Available,Home Health, Outpatient PT Transportation Needs at Discharge Private Vehicle
--- NOTE | 2022-01-12 11:32 | PC.NURSE ---
Pt dressed and ready for discharge home. Pt to be transported by caregiver and with via pov. No IV and no tele. Pt denies having belongings in the safe. Prescriptions retrieved from pharmacy and given to pt. Discussed d/c instructions and answered questions. Pt taken out via wheel chair by CINDI.
== END 2022-01-12 11:40 | disposition home or self-care (01) ==
LOC: OR 08:29 → AC 08:30
PROVIDERS: Physician Assistant; PCP Family Medicine; Referring Provider Orthopaedic Surgery; Visit Provider Orthopaedic Surgery
PROC: 0SRC0JZ Replacement of Right Knee Joint with Synthetic Substitute, Open Approach (ICD-10-PCS; CPT 27447; principal; 2022-01-10 10:45)
DX: M17.11 Unilateral primary osteoarthritis, right knee (principal); G20 Parkinson's disease; I10 Essential (primary) hypertension
CPT/HCPCS: 27447; 36415; 64450; 73560; 85014; 85018; 97110; 97116; 97162; 97530; C1776; C1713; C9290; J0171; J0690; J2250; J2704; J3010

== ENCOUNTER 2024-04-08 09:18 | Observation (INO) | payer MEDICARE, SELFPAY ==
[2022-01-10 16:08] VITALS: BMI 25.1
[2024-04-08] VITALS (33 sets, daily range): BP systolic 118–153; BP diastolic 58–106; PULSE 52–80; RESP 14–28; TEMP 36.5–37; O2SAT 95–100; BMI 24.0
--- NOTE | 2024-04-08 09:36 | DI.RAD.S_ITS ---
PROCEDURE: XR CHEST 1V INDICATIONS: chest pain TECHNIQUE: One view of the chest was acquired. COMPARISON: [facility], CR, XR CHEST 1V, 03/05/2018, 9:29. FINDINGS: Surgical changes and devices: Stable mediastinum wires and aortic valve prosthesis. Left chest wall neurostimulator. Lungs and pleura: Lungs are clear. No pleural effusions or pneumothorax. Mediastinum: Mediastinal contours appear normal. Heart size is normal. Bones and chest wall: No suspicious bony lesions. Overlying soft tissues appear unremarkable. IMPRESSION: No acute cardiopulmonary abnormality is seen. Dictated by: Bibi Haskins MD, PhD on 04/08/2024 at 9:56 Approved by: Bibi Haskins MD, PhD on 04/08/2024 at 9:56
[2024-04-08 10:11] LABS: Appearance Urine UA CLEAR; Bilirubin Urine UA NEGATIVE (NEGATIVE); Color Urine UA YELLOW; Glucose Urine UA NEGATIVE (Negative); Ketones Urine UA 1+ (NEGATIVE); Leukocyte Esterase Urine UA NEGATIVE (NEGATIVE); Nitrite Urine UA NEGATIVE (Negative); Occult Blood Urine UA NEGATIVE (Negative); Protein Urine UA 1+ (Negative); Specific Gravity Urine UA 1.025 (1.000-1.035); Urobilinogen Urine UA 0.2 E.U./dL (0.2)
--- NOTE | 2024-04-08 10:20 | EKG_ITS ---
[facility] [address] [place] [address] Test Date: 2024-04-08 Pat Name: Jerardo Momin Department: [facility] Room: Gender: Male Miner Pick: SHIRA : 1940 Requested By: Order Number: [id number] Reading MD: Amol Viera MD Measurements Intervals [place] Rate: 51 P: -8 [place]: 118 QRS: -37 QRSD: 94 T: 21 QT: 454 QTc: 418 Interpretive Statements Sinus bradycardia Left axis deviation Nonspecific ST and T wave abnormality Electronically Signed On 04-08-2024 15:09:26 PST by Amol Viera MD
[2024-04-08 10:25] LABS: Bacteria Urine None Seen; RBC Urine None Seen (0-5/HPF); Urine Volume 10mL (spun); WBC Urine 0-1/HPF (0-5/HPF)
[2024-04-08 10:26] LABS: Culture Indicated Urine Cult Not Indicated; Squamous Epithelial Cell Urine None Seen (0-5/HPF)
--- NOTE | 2024-04-08 10:46 | ED.WEAKNESS ---
HPI - Weakness General Chief complaint: Weakness Stated complaint: weakness/ difficulty urinating Time Seen by Provider: 04/08/24 10:46 Source: patient, RN notes reviewed and old records reviewed ([facility] records) Mode of arrival: Family Vehicle History of Present Illness HPI Narrative: 84-year-old male history of Parkinson's disease, hypertension, dyslipidemia, aortic valve, pacemaker who presents for complaint of increased weakness and complaint of increasing cellulitis on lower extremities after being treated with oral antibiotics. Patient was seen on 04/06/2024 at [facility] emergency department was given a dose of Rocephin in the ED had had doxycycline started several days prior to ED evaluation and then had cephalexin added as well at that visit. Patient states he feels generally weak, denies fevers or chills. Does note a fall initially and that is seem to irritate that leg. 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 Denies headache, denies any chest pain or shortness of breath. Denies any nausea or vomiting. States he has a lower back pain, which is sometimes present but worse today. He denies any abdominal pain. Denies any difficulty with urination but was retaining here in the department, denies any difficulty with bowel movements. Notes some swelling and redness in his lower extremity but states not painful unless he weightbear as. Patient has not been able to ambulate since Sunday.. Patient's also noted patient's right lower extremities had increasing swelling and redness and been on antibiotics recently. They also describe generalized weakness. Patient states feels like his mentation has been at baseline. Former smoker, occasional alcohol, no recreational drugs. Related Data Home Medications Medication Instructions Recorded Confirmed amlodipine 2.5 mg tablet 2.5 mg PO BID 12/19/21 04/08/24 carbidopa 25 mg-levodopa 100 mg 2 tab PO Q4H 12/19/21 04/08/24 tablet carbidopa ER 50 mg-levodopa 200 mg 1 tab PO BID 12/19/21 04/08/24 tablet,extended release entacapone 200 mg tablet 200 mg PO TID 12/19/21 04/08/24 levothyroxine 50 mcg tablet 50 mcg PO DAILY 12/19/21 04/08/24 ropinirole 8 mg tablet,extended 8 mg PO BEDTIME 12/19/21 04/08/24 release 24 hr lorazepam 0.5 mg tablet 0.5 mg PO BID PRN Anxiety 01/09/22 04/08/24 Previous Rx's Medication Instructions Recorded acetaminophen 500 mg capsule 500 mg PO Q4H PRN fever or pain 01/11/22 #90 caps calcium carbonate 500 mg (2.5 x 200 mg calcium (500 01/12/22 mg)) PO PRN PRN acid reflux #60 tabs pantoprazole 20 mg tablet,delayed 20 mg PO BID PRN acid reflux #60 01/12/22 release tabs Allergies Allergy/AdvReac Type Severity Reaction Status Date / Time hydrochlorothiazide AdvReac Intermediate Fainting Verified 01/10/22 08:37 Review of Systems Review of Systems ROS Unobtainable: All systems reviewed & are unremarkable except as noted in HPI and below Patient History Medical History CAD (coronary artery disease) Skin cancer Anxiety Club foot of both lower extremities GI bleed (03/05/18) Hypertension Hypothyroidism Parkinson disease Surgical History (Updated 04/08/24 @ 15:47 by Dipesh Fu DO) Status post right knee replacement S/P deep brain stimulator placement (2019) History of aortic valve replacement with porcine valve Social History household members: spouse Smoking Status: Former smoker alcohol intake: current Smoking Status: Former smoker alcohol intake frequency: holidays/special occasions only Substance Use Type: does not use Exam Narrative Exam Narrative: GEN: Thin elderly male, alert and oriented, patient appears to be in mild distress. HEENT: Atraumatic , patient does have a hard circular mass on his left parietal scalp, pupils are equal round reactive to light, extraocular movements are intact, nares are clear, there is no conjunctival pallor. Throat is clear without any exudates, erythema, tonsillar enlargement or uvular deviation HEART: Regular rate and rhythm without murmur, clicks, rubs. No carotid bruits, pulses are equal in upper and lower extremities LUNGS:Lungs clear to auscultation, no wheezes, rales, crackles, chest moves symmetrically ABD:bowel sounds normal, soft, non-tender, no guarding, rebound, rigidity, no masses noted, no hepatosplenomegaly :No CVA tenderness MSCL: Patient has some slight tender over the lateral malleolus. No muscle atrophy, patient is globally weak, full range of motion. Patient had does have edema his right lower extremity extending into the foot. Not particularly tender to touch accept over the lateral malleolus. There is no fluctuance there is induration. There is some warmth to the area. Cap refills intact less than 2 seconds. Patient can lift and move the leg no other bony tenderness no joint laxity appreciated, patient does have little bit of a clubfoot on the right. NEURO:CN 2-12 intact, sensation normal, mild tremor. Initial Vital Signs Initial Vital Signs: Vital Signs Pulse Rate 55 L 04/08/24 09:24 Pulse Oximetry 97 04/08/24 09:24 Course Orders Ordered: ED Orders 04/08/24 09:33 Urinalysis and Microscopic Stat 04/08/24 09:36 XR chest 1V Stat EKG-12 Lead Stat 04/08/24 10:30 Complete Blood Count AUTO DIFF Stat Comprehensive Metabolic Panel Stat Lipase Stat Magnesium Stat NT-proBNP (BNP-Adult 18+) Stat PTT Partial Thromboplastin Miguel Stat Procalcitonin Stat Prothrombin Time INR Stat Troponin & CK Cardiac Panel Stat 04/08/24 11:02 US periph venous low extrem rt Stat 04/08/24 11:04 Lactate (Lactic Acid) Stat 04/08/24 11:33 Blood Culture Stat 04/08/24 11:45 CT abdomen pelvis w con Stat 04/08/24 12:59 Trop I [Troponin I] Stat 04/08/24 14:53 XR ankle RT min 3V Stat XR knee RT 3V Stat 04/08/24 15:23 Consult to PLAY READER - Teacher Counselor Stat Discontinued Medications Aspirin (Aspirin 81 Mg Chew Tab) 324 mg PO NOW ONE Stop: 04/08/24 09:37 Last Admin: 04/08/24 11:49 Dose: Not Given Documented By: JAIME Carbidopa/Levodopa (Carbidopa-Levodopa 25/100 Tablet) 2 each PO NOW ONE Stop: 04/08/24 15:02 Last Admin: 04/08/24 15:19 Dose: 2 each Documented By: QUINTIN Ceftriaxone Sodium 2,000 mg/ (Sodium Chloride) 100 mls @ 200 mls/hr IV NOW ONE Stop: 04/08/24 11:04 Last Infusion: 04/08/24 12:32 Dose: Infused Documented By: Admin: 04/08/24 11:57 Dose: 200 mls/hr Documented By: QUINTIN Sodium Chloride (Normal Saline 0.9%) 500 mls @ 1,000 mls/hr IV BOLUS ONE Stop: 04/08/24 11:38 Last Infusion: 04/08/24 12:32 Dose: Infused Documented By: Admin: 04/08/24 11:59 Dose: 1,000 mls/hr Documented By: QUINTIN Lidocaine HCl (Lidocaine 2% (Glydo) 6 Ml Gel) 6 ml TOP NOW ONE Stop: 04/08/24 11:05 Last Admin: 04/08/24 11:59 Dose: 6 ml Documented By: QUINTIN Vital Signs Vital signs: Vital Signs - 8 hr 04/08/24 09:24 04/08/24 09:25 04/08/24 09:25 Temperature Pulse Rate 55 L 55 L Respiratory Rate Blood Pressure 137/65 Pulse Oximetry 97 97 Oxygen Delivery Method 04/08/24 09:29 04/08/24 09:40 04/08/24 09:40 Temperature 97.7 F Pulse Rate 56 L 55 L Respiratory Rate 18 Blood Pressure 137/65 141/64 H Pulse Oximetry 97 99 Oxygen Delivery Method Room Air 04/08/24 09:48 04/08/24 10:01 04/08/24 10:23 Temperature Pulse Rate 52 L 53 L Respiratory Rate Blood Pressure 147/67 H Pulse Oximetry Oxygen Delivery Method 04/08/24 10:30 04/08/24 10:31 04/08/24 10:31 Temperature Pulse Rate 58 L 57 L Respiratory Rate 27 H 28 H Blood Pressure 144/66 H Pulse Oximetry Oxygen Delivery Method 04/08/24 11:00 04/08/24 11:00 04/08/24 11:20 Temperature Pulse Rate 58 L Respiratory Rate 27 H Blood Pressure 152/70 H 150/70 H Pulse Oximetry 99 Oxygen Delivery Method 04/08/24 11:20 04/08/24 11:30 04/08/24 11:40 Temperature Pulse Rate 58 L 60 58 L Respiratory Rate 26 H 25 H 24 Blood Pressure Pulse Oximetry 99 99 100 Oxygen Delivery Method Room Air 04/08/24 11:40 04/08/24 12:00 04/08/24 12:30 Temperature Pulse Rate 60 59 L Respiratory Rate 22 24 Blood Pressure 150/72 H Pulse Oximetry 100 100 Oxygen Delivery Method 04/08/24 12:57 04/08/24 12:57 04/08/24 13:00 Temperature Pulse Rate 58 L 80 Respiratory Rate 15 21 Blood Pressure 134/79 Pulse Oximetry 100 95 Oxygen Delivery Method 04/08/24 13:01 04/08/24 13:01 04/08/24 13:21 Temperature Pulse Rate 60 Respiratory Rate 24 Blood Pressure 128/75 143/84 H Pulse Oximetry 98 Oxygen Delivery Method 04/08/24 13:21 04/08/24 13:30 04/08/24 13:41 Temperature Pulse Rate 59 L 56 L 62 Respiratory Rate 20 24 22 Blood Pressure Pulse Oximetry 98 98 96 Oxygen Delivery Method Room Air 04/08/24 13:41 04/08/24 14:00 04/08/24 14:01 Temperature Pulse Rate 60 58 L Respiratory Rate 14 20 Blood Pressure 153/58 H Pulse Oximetry 97 99 Oxygen Delivery Method 04/08/24 14:01 04/08/24 14:20 04/08/24 14:20 Temperature Pulse Rate 59 L Respiratory Rate 20 Blood Pressure 152/65 H 143/106 H Pulse Oximetry 98 Oxygen Delivery Method 04/08/24 14:30 04/08/24 14:41 04/08/24 14:41 Temperature Pulse Rate 61 59 L Respiratory Rate 20 Blood Pressure 138/62 Pulse Oximetry 97 98 Oxygen Delivery Method 04/08/24 15:00 04/08/24 15:00 04/08/24 15:21 Temperature Pulse Rate 60 59 L Respiratory Rate 23 Blood Pressure 141/65 H Pulse Oximetry 98 Oxygen Delivery Method 04/08/24 15:21 04/08/24 15:30 Temperature Pulse Rate 58 L Respiratory Rate 21 Blood Pressure 152/74 H Pulse Oximetry Oxygen Delivery Method MDM - Weakness Lab Data 04/08/24 10:30 04/08/24 10:30 Labs: Lab Results 04/08/24 04/08/24 04/08/24 Range/Units 09:33 10:30 11:04 WBC 8.0 (4.5-11.0) X10^3/uL RBC 3.43 L (4.5-5.9) X10^6/uL Hgb 11.2 L (13.5-17.5) g/dL Hct 33.1 L (41-53) % MCV 96.4 (80-100) fL MCH 32.6 (26-34) PG MCHC 33.8 (30-36) % RDW 13.9 (11.6-14.8) % Plt Count 191 (150-400) X10^3/uL Neut % (Auto) 83.6 H (50-75) % Lymph % (Auto) 8.2 L (25-40) % [place] % (Auto) 7.3 (3-14) % Eos % (Auto) 0.6 L (2-4) % Baso % (Auto) 0.3 (0-2) % Neut # (Auto) 6700 (3517-0449) /uL Lymph # (Auto) 700 L (8177-5357) /uL [place] # (Auto) 600 (0-900) /uL Eos # (Auto) 100 (0-450) /uL Baso # (Auto) 0 (0-100) /uL PT 12.4 (9.4-12.5) SECONDS INR 1.1 (0.9-1.3) APTT 29 (25.1-36.5) SECONDS Sodium 137 (137-145) mmol/L Potassium 3.6 (3.4-5.1) mmol/L Chloride 107 (98-107) mmol/L Carbon Dioxide 27 (22-32) mmol/L BUN 31 H (9-20) mg/dL Creatinine 1.31 H (0.66-1.25) mg/dL Estimated GFR 54 L (>60) mL/min BUN/Creatinine Ratio 23.7 H (6-22) Glucose 109 (80-110) mg/dL Lactate 0.9 (0.7-2.1) mmol/L Calcium 8.4 (8.4-10.2) mg/dL Magnesium 2.0 (1.6-2.3) mg/dL Total Bilirubin 1.2 (0.2-1.3) mg/dL AST 42 (17-59) IU/L ALT 6 (<50) IU/L Alkaline Phosphatase 65 (38-126) U/L Total Creatine Kinase 49 L (55-170) U/L Troponin I 0.042 H (0.01-0.034) ng/mL NT-Pro-B Natriuret Pep 4020 H (<450) pg/mL Total Protein 6.4 (6.3-8.2) g/dL Albumin 3.2 L (3.5-5.0) g/dL Globulin 3.2 (1.7-4.1) g/dL Albumin/Globulin Ratio 1.0 (1.0-2.8) Lipase 26 (23-300) U/L Procalcitonin 2.16 H (<0.5) ng/mL Urine Color Yellow Urine Appearance Clear Urine pH 5.0 (4.5-8.0) Ur Specific [place] 1.025 (1.000-1.035) Urine Protein 1+ H (Negative) Urine Glucose (UA) Negative (Negative) g/dL Urine Ketones 1+ H (NEGATIVE) Urine Occult Blood Negative (Negative) Urine Nitrate Negative (Negative) Urine Bilirubin Negative (NEGATIVE) Urine Urobilinogen 0.2 (0.2) E.U./dL Ur Leukocyte Esterase Negative (NEGATIVE) Urine RBC None seen (0-5/HPF) Urine WBC 0-1/hpf (0-5/HPF) Ur Squamous Epith Cells None seen (0-5/HPF) Urine Bacteria None seen (None) Ur Culture Indicated? Cult not indicated Vol Urine Centrifuged 10ml (spun) 04/08/24 Range/Units 12:59 WBC (4.5-11.0) X10^3/uL RBC (4.5-5.9) X10^6/uL Hgb (13.5-17.5) g/dL Hct (41-53) % MCV (80-100) fL MCH (26-34) PG MCHC (30-36) % RDW (11.6-14.8) % Plt Count (150-400) X10^3/uL Neut % (Auto) (50-75) % Lymph % (Auto) (25-40) % [place] % (Auto) (3-14) % Eos % (Auto) (2-4) % Baso % (Auto) (0-2) % Neut # (Auto) (2809-2520) /uL Lymph # (Auto) (5745-1676) /uL [place] # (Auto) (0-900) /uL Eos # (Auto) (0-450) /uL Baso # (Auto) (0-100) /uL PT (9.4-12.5) SECONDS INR (0.9-1.3) APTT (25.1-36.5) SECONDS Sodium (137-145) mmol/L Potassium (3.4-5.1) mmol/L Chloride (98-107) mmol/L Carbon Dioxide (22-32) mmol/L BUN (9-20) mg/dL Creatinine (0.66-1.25) mg/dL Estimated GFR (>60) mL/min BUN/Creatinine Ratio (6-22) Glucose (80-110) mg/dL Lactate (0.7-2.1) mmol/L Calcium (8.4-10.2) mg/dL Magnesium (1.6-2.3) mg/dL Total Bilirubin (0.2-1.3) mg/dL AST (17-59) IU/L ALT (<50) IU/L Alkaline Phosphatase (38-126) U/L Total Creatine Kinase (55-170) U/L Troponin I 0.041 H (0.01-0.034) ng/mL NT-Pro-B Natriuret Pep (<450) pg/mL Total Protein (6.3-8.2) g/dL Albumin (3.5-5.0) g/dL Globulin (1.7-4.1) g/dL Albumin/Globulin Ratio (1.0-2.8) Lipase (23-300) U/L Procalcitonin (<0.5) ng/mL Urine Color Urine Appearance Urine pH (4.5-8.0) Ur Specific [place] (1.000-1.035) Urine Protein (Negative) Urine Glucose (UA) (Negative) g/dL Urine Ketones (NEGATIVE) Urine Occult Blood (Negative) Urine Nitrate (Negative) Urine Bilirubin (NEGATIVE) Urine Urobilinogen (0.2) E.U./dL Ur Leukocyte Esterase (NEGATIVE) Urine RBC (0-5/HPF) Urine WBC (0-5/HPF) Ur Squamous Epith Cells (0-5/HPF) Urine Bacteria (None) Ur Culture Indicated? Vol Urine Centrifuged Imaging Data Chest x-ray: Radiologist Impression: Jerardo Momin??84??M??1940 ? Allergy/Adv: hydrochlorothiazide Close Chest X-Ray (Signed) Bibi Haskins - 04/08/24 Telemetry Strips 01/12/22 Knee X-Ray (Signed) Sadi Modi - 01/10/22 Echocardiogram Ultrasound (Signed) Nas Juares - 06/27/18 Chest X-Ray (Signed) Tate Almaraz - 03/05/18 Telemetry Strips 03/04/18 Launch?Image [address] [address] XRay Report Signed Patient: Jerardo Momin MR#: [id number] : 1940 Acct:[id number] Age/Sex: 84 / M Date of Service: 04/08/24 Loc: ED Accession Number: [id number] Procedure: XR chest 1V Ordering Provider: Eusebia De La O D.O. PROCEDURE: XR CHEST 1V INDICATIONS: chest pain TECHNIQUE: One view of the chest was acquired. COMPARISON: [facility], , XR CHEST 1V, 03/05/2018, 9:29. FINDINGS: Surgical changes and devices: Stable mediastinum wires and aortic valve prosthesis. Left chest wall neurostimulator. Lungs and pleura: Lungs are clear. No pleural effusions or pneumothorax. Mediastinum: Mediastinal contours appear normal. Heart size is normal. Bones and chest wall: No suspicious bony lesions. Overlying soft tissues appear unremarkable. IMPRESSION: No acute cardiopulmonary abnormality is seen. Dictated by: Bibi Haskins MD, PhD on 04/08/2024 at 9:56 Approved by: Bibi Haskins MD, PhD on 04/08/2024 at 9:56 ECG Data Attestation: I personally reviewed and interpreted this ECG as follows: Prior ECG tracings: not available for review Interpretation: Sinus bradycardia rate of 51 AR 118 QRS of 94 QTC of 418, no acute ST elevation depression noted nonspecific change. No prior for comparison. MDM Narrative Medical decision making narrative: Labs show white count 8 hemoglobin 11.2 consistent with priors platelets of 191. Coags are normal, sodium is 137 potassium 3.6 chloride 107 CO2 is 27 BUN of 31 creatinine of 1.31, glucose of 109 lactate of 0.9 LFTs are normal CK is 49 with a troponin is 0.042 and a BNP of 4020, no priors for comparison. Patient is positive with procalcitonin is 2.16 Chest x-ray shows no acute change EKG shows sinus bradycardia. UA shows 1+ protein negative glucose 1+ ketones negative nitrates, normal leukocyte esterase no red cells 1 white cell no squamous no bacteria. CT abdomen and pelvis shows mild cardiomegaly, no hydro no solid mass no complex renal cystic lesions which require follow-up extensive atherosclerotic calcifications suspect at least hemodynamically significant stenosis right renal artery and possibly the left no aortoiliac hemodynamically significant stenotic disease identified Kay catheter present which is not decompressed. Old moderate to severe T12 compression with diffuse lumbar degenerative changes and [id number] levocurvature centered at L3 with moderate canal stenosis L4-L5. No other acute abdominal process. DVT ultrasound shows no findings of lower DVT, no, non soft tissue. Chest x-ray shows no acute change. 84-year-old male sent for complaint of cellulitis right lower extremity patient does have redness and warmth DVT ultrasound was ordered he also has complaint of back pain. Patient does not meet any septic criteria in terms of vital signs are labs initially but describes generalized weakness with failure had an outpatient antibiotics inability to ambulate safely at his assisted care facility. Patient received Rocephin 2 g, 500 mL fluid bolus. Kay catheter was placed as patient had 300+mL on bladder scan. Draining urine without issue. UA does not show any signs of infection. 84-year-old male sent for increasing weakness with the inability to ambulate safely at his assisted living facility, patient does not quite meet septic criteria but does have elevated procalcitonin, generalized weakness with redness while he was lower extremity does not appear to have cellulitis no DVT, white count is normal lactate is normal patient does not have elevated troponin but no has pain or shortness of P but no priors for comparison. Also had complaints of back pain CT abdomen pelvis was obtained shows some atherosclerotic changes some possible stenosis of renal arteries but no acute abdominal process. Patient has been on doxycycline as well as for 4 5 days as well as cephalexin since his ED visit in [place]. Appears to be failing outpatient antibiotics. Nursing reviewing patient's Parkinson's medications he missed his 9:00 a.m. dose but we will attempt to get his afternoon doses although we do not have entacapone available. Spoke with Dr. Fu, hospitalist you came down to evaluate patient. Does ask for x-rays of the knee and ankle. Reviewing with care management. xray knee, no joint effusion no fracture dislocation expected appearance right total knee arthroplasty. xray ankle shows diffuse degenerative change involving the ankle and hindfoot likely posttraumatic no acute bony abnormality. Dr. Fu accepts for observation after review with case management. Discharge Plan Departure Patient Disposition: Admitted as Observation Clinical Impression: Cellulitis of leg, right, Weakness Admit Date/Time: 04/08/24 15:31 Admit Provider: Dipesh Fu
[2024-04-08 11:00] LABS: Add Manual Diff / Slide Review NO; Basophils Absolute Auto 0 /uL (0-100); Basophils Percent Auto 0.3 % (0-2); Eosinophils Absolute Auto 100 /uL (0-450); Eosinophils Percent Auto 0.6 % (2-4); Hematocrit 33.1 % (41-53); Hemoglobin 11.2 g/dL (13.5-17.5); Lymphocytes Absolute Auto 700 /uL (1100-4500); Lymphocytes Percent Auto 8.2 % (25-40); Mean Corpuscular HGB Conc 33.8 % (30-36); Mean Corpuscular Hemoglobin 32.6 PG (26-34); Mean Corpuscular Volume 96.4 fL (80-100); Monocytes Absolute Auto 600 /uL (0-900); Monocytes Percent Auto 7.3 % (3-14); Neutrophils Absolute Auto 6700 /uL (1500-7000); Neutrophils Percent Auto 83.6 % (50-75); Platelet Count 191 X10^3/uL (150-400); Red Blood Cell Count 3.43 X10^6/uL (4.5-5.9); Red Cell Distribution Width 13.9 % (11.6-14.8)
--- NOTE | 2024-04-08 11:02 | DI.US.S_ITS ---
PROCEDURE: US PERIPH VENOUS LOW EXTREM RT INDICATIONS: swelling, redness TECHNIQUE: Real-time imaging, as well as color and pulse Doppler interrogation, were performed of the lower extremity deep veins from the inguinal ligament to the popliteal fossa, with documentation of the visualized calf veins. COMPARISON: None. FINDINGS: The common femoral, femoral, popliteal, and the visualized calf veins are normally compressible, and free of intraluminal thrombus. Color and pulse Doppler demonstrate normal phasic intraluminal flow. There is normal augmentation response to distal compression maneuver. IMPRESSION: No findings of lower extremity deep venous thrombosis. Approved by: Boom Agee M.D. on 04/08/2024 at 11:41
[2024-04-08 11:09] LABS: INR 1.1 (0.9-1.3); Prothrombin Time 12.4 SECONDS (9.4-12.5)
[2024-04-08 11:11] LABS: PTT Partial Thromboplastin Tim 29 SECONDS (25.1-36.5)
[2024-04-08 11:13] LABS: Alanine Aminotransferase 6 IU/L (<50); Albumin 3.2 g/dL (3.5-5.0); Alkaline Phosphatase 65 U/L (38-126); Aspartate Aminotransferase 42 IU/L (17-59); BUN Creatinine Ratio 23.7 (6-22); Bilirubin Total 1.2 mg/dL (0.2-1.3); Blood Urea Nitrogen 31 mg/dL (9-20); Calcium 8.4 mg/dL (8.4-10.2); Carbon Dioxide 27 mmol/L (22-32); Chloride 107 mmol/L (98-107); Creatine Kinase 49 U/L (55-170); Estimated Glomerular Filt Rate 54 mL/min (>60); Globulin 3.2 g/dL (1.7-4.1); Glucose 109 mg/dL (80-110); HEMOLYSIS < 15 (0-50); Lipase 26 U/L (23-300); Potassium 3.6 mmol/L (3.4-5.1); Sodium 137 mmol/L (137-145); Total Protein 6.4 g/dL (6.3-8.2)
[2024-04-08 11:25] LABS: NT-proBNP (BNP-Adult 18+) 4020 pg/mL (<450); Troponin I 0.042 ng/mL (0.01-0.034)
[2024-04-08 11:37] LABS: Lactate (Lactic Acid) 0.9 mmol/L (0.7-2.1)
--- NOTE | 2024-04-08 11:45 | DI.CT.S_ITS ---
PROCEDURE: CT ABDOMEN PELVIS W CON INDICATIONS: back pain, weakness, urinary retention mild TECHNIQUE: After the administration of intravenous contrast, axial sections acquired from the lung bases to the pubic symphysis. Coronal and sagittal reformats were performed. For radiation dose reduction, the following was used: automated exposure control, adjustment of mA and/or kV according to patient size. COMPARISON: [facility], CR, XR CHEST 1V, 04/08/2024, 9:42. FINDINGS: Image quality: Diagnostic. Lower Chest: Mild cardiomegaly. Remote midline sternotomy and aortic valve replacement. Minimal bilateral pleural effusions and minimal bibasilar atelectasis. ABDOMEN: Liver: No solid mass. Gallbladder: No radiopaque gallstones or wall thickening. Biliary ducts: No biliary dilation. Pancreas: No ductal dilation. Spleen: Size is within normal limits. Adrenal Glands: No adrenal nodules. Kidneys and Ureters: No hydronephrosis. No solid mass. No complex renal cystic lesion which requires follow up. Stomach and Bowel: Normal colonic caliber, without significant wall thickening. Diverticulosis without evidence of acute diverticulitis. Peritoneum: No abnormal intraperitoneal fluid. No free air. Ventral Wall: No significant ventral hernia. Abdominal Nodes: No retroperitoneal or mesenteric adenopathy by size criteria. Vessels: No aortic aneurysm. Extensive atherosclerotic calcifications. Suspect at least a hemodynamically significant stenosis of the right renal artery and possibly the left renal artery. No aortoiliac hemodynamically significant stenotic disease identified. PELVIS: Pelvic Organs: Prostatomegaly.. Bladder: A Kay catheter is present in the bladder which is not decompressed. Pelvic Nodes: No enlarged lymph nodes. Miscellaneous: No inguinal hernias are seen. Bones: No aggressive osseous abnormality. Old moderate to severe T12 compression. Diffuse lumbar degenerative change. Mild to moderate levocurvature centered at L3. Moderate canal stenosis at L4-L5. IMPRESSION: 1. Diffuse lumbar degenerative change, old compression fracture, moderate canal stenosis at L4-L5. 2. No acute abdominal process. 3. Prostatomegaly, indwelling Kay. 4. Diverticulosis. 5. Mild cardiomegaly, small bilateral pleural effusions, minimal bibasilar atelectasis. 6. Suspect a hemodynamically significant right renal artery stenosis. Dictated by: Wali Awad M.D. on 04/08/2024 at 12:20 Approved by: Wali Awad M.D. on 04/08/2024 at 12:36
[2024-04-08 11:52] LABS: Procalcitonin 2.16 ng/mL (<0.5)
[2024-04-08] MEDS: cefTRIAXone 2,000 MG in SODIUM CHLORIDE 0.9% 100 ML 200 MG IV (11:57)
[2024-04-08] MEDS: LIDOCAINE 2% (GLYDO) 6 ML GEL TOP (11:59)
[2024-04-08] MEDS: SODIUM CHLORIDE 0.9% 500 ML 1000 ML IV (11:59)
[2024-04-08 13:33] LABS: Troponin I 0.041 ng/mL (0.01-0.034)
--- NOTE | 2024-04-08 14:53 | DI.RAD.S_ITS ---
PROCEDURE: XR KNEE RT 3V INDICATIONS: pain in leg TECHNIQUE: 3 views of the knee were acquired. COMPARISON: [facility], , XR KNEE RT 1TO2V, 01/10/2022, 13:34. FINDINGS: Bones: No fractures or dislocations. Expected appearance of total right knee arthroplasty. No evidence of hardware failure or loosening. No suspicious bony lesions. Soft tissues: No joint effusion. No suspicious soft tissue calcifications. IMPRESSION: No acute bony abnormality or significant effusion. Expected appearance of total right knee arthroplasty. Dictated by: Wali Awad M.D. on 04/08/2024 at 15:31 Approved by: Wali Awad M.D. on 04/08/2024 at 15:33
--- NOTE | 2024-04-08 14:53 | DI.RAD.S_ITS ---
PROCEDURE: XR ANKLE RT MIN 3V INDICATIONS: pain in leg TECHNIQUE: 3 views of the ankle were acquired. COMPARISON: None. FINDINGS: Bones: No fractures or dislocations. Diffuse degenerative change involving the ankle and hindfoot. Ankle mortise is normally aligned. No suspicious bony lesions. Soft tissues: No tibiotalar joint effusion. Achilles tendon appears normal. 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 No acute bony abnormality. Dictated by: Wali Awad M.D. on 04/08/2024 at 15:33 Approved by: Wali Awad M.D. on 04/08/2024 at 15:36
[2024-04-08] MEDS: CARBIDOPA-LEVODOPA 25/100 TABLET 2 EACH PO ×3 (15:19→20:19)
--- NOTE | 2024-04-08 15:24 | P.HP_ITS ---
History of Present Illness History of Present Illness Date Patient Seen: 04/08/24 Time Patient Seen: 15:29 Chief complaint: weakness/ difficulty urinating Narrative: This is an 84 year old male with PMH of ? CAD, prior GI bleed, Parkinson's with deep brain stimulatory, HTN, hypothyroidism, CKD stage III who presents with worsening pain of his right lower leg in the setting of recent cellulitis. He lives at [facility], was start on doxycycline on 04/04 with worsening pain with ambulation. He was seen at an OSH a few days ago. Additional history obtained with the assistance of his spouse. At OSH cephalexin was added to doxycycline. His pain continues to limit his ability to ambulate today, he was brought to [place] ER for further evaluation. He denies cough, chest pain, shortness of breath. He has leg edema on the R, his left leg looks normal. He denies pain at rest. His erythema is stable on the antibiotics to maybe slightly improved. He tells me his pain is in his ankle and calf when ambulating, at rest it is not really present at all. He has been unable to ambulate at his assisted living facility, worsening despite oral antibiotics. In the ER, his vital signs were unremarkable. Labs showed mild troponin elevation and elevated proBNP, with no prior lab values to compare. Troponin downtrended very slightly on repeat. Imaging of his right leg including ultrasound, and radiographs were unremarkable with no evidence of fracture or osteomyelitis. [facility] Medical History CAD (coronary artery disease) Skin cancer Anxiety Club foot of both lower extremities GI bleed (03/05/18) Hypertension Hypothyroidism Parkinson disease Surgical History Status post right knee replacement S/P deep brain stimulator placement (2019) History of aortic valve replacement with porcine valve Social History household members: spouse Smoking Status: Former smoker alcohol intake: current Meds Home Medications and Allergies Home Medications Medication Instructions Recorded Confirmed Type amlodipine 2.5 mg tablet 2.5 mg PO BID 12/19/21 04/08/24 History carbidopa 25 mg-levodopa 100 mg 2 tab PO Q4H 12/19/21 04/08/24 History tablet carbidopa ER 50 mg-levodopa 200 mg 1 tab PO BID 12/19/21 04/08/24 History tablet,extended release entacapone 200 mg tablet 200 mg PO TID 12/19/21 04/08/24 History levothyroxine 50 mcg tablet 50 mcg PO DAILY 12/19/21 04/08/24 History ropinirole 8 mg tablet,extended 8 mg PO BEDTIME 12/19/21 04/08/24 History release 24 hr lorazepam 0.5 mg tablet 0.5 mg PO BID PRN Anxiety 01/09/22 04/08/24 History acetaminophen 500 mg capsule 500 mg PO Q4H PRN fever or pain 01/11/22 04/08/24 Rx #90 caps calcium carbonate 500 mg (2.5 x 200 mg calcium (500 01/12/22 04/08/24 Rx mg)) PO PRN PRN acid reflux #60 tabs pantoprazole 20 mg tablet,delayed 20 mg PO BID PRN acid reflux #60 01/12/22 04/08/24 Rx release tabs Allergies Allergy/AdvReac Type Severity Reaction Status Date / Time hydrochlorothiazide AdvReac Intermediate Fainting Verified 01/10/22 08:37 Review of Systems Review of Systems Narrative: All other systems reviewed with the patient and are negative unless otherwise stated. Exam Vital Signs (past 8 hours): - 04/08/24 09:24 04/08/24 09:25 04/08/24 09:25 Temperature Pulse Rate 55 L 55 L Respiratory Rate Blood Pressure 137/65 Pulse Oximetry 97 97 Oxygen Delivery Method 04/08/24 09:29 04/08/24 09:40 04/08/24 09:40 Temperature 97.7 F Pulse Rate 56 L 55 L Respiratory Rate 18 Blood Pressure 137/65 141/64 H Pulse Oximetry 97 99 Oxygen Delivery Method Room Air 04/08/24 09:48 04/08/24 10:01 04/08/24 10:23 Temperature Pulse Rate 52 L 53 L Respiratory Rate Blood Pressure 147/67 H Pulse Oximetry Oxygen Delivery Method 04/08/24 10:30 04/08/24 10:31 04/08/24 10:31 Temperature Pulse Rate 58 L 57 L Respiratory Rate 27 H 28 H Blood Pressure 144/66 H Pulse Oximetry Oxygen Delivery Method 04/08/24 11:00 04/08/24 11:00 04/08/24 11:20 Temperature Pulse Rate 58 L Respiratory Rate 27 H Blood Pressure 152/70 H 150/70 H Pulse Oximetry 99 Oxygen Delivery Method 04/08/24 11:20 04/08/24 11:30 04/08/24 11:40 Temperature Pulse Rate 58 L 60 58 L Respiratory Rate 26 H 25 H 24 Blood Pressure Pulse Oximetry 99 99 100 Oxygen Delivery Method Room Air 04/08/24 11:40 04/08/24 12:00 04/08/24 12:30 Temperature Pulse Rate 60 59 L Respiratory Rate 22 24 Blood Pressure 150/72 H Pulse Oximetry 100 100 Oxygen Delivery Method 04/08/24 12:57 04/08/24 12:57 04/08/24 13:00 Temperature Pulse Rate 58 L 80 Respiratory Rate 15 21 Blood Pressure 134/79 Pulse Oximetry 100 95 Oxygen Delivery Method 04/08/24 13:01 04/08/24 13:01 04/08/24 13:21 Temperature Pulse Rate 60 Respiratory Rate 24 Blood Pressure 128/75 143/84 H Pulse Oximetry 98 Oxygen Delivery Method 04/08/24 13:21 04/08/24 13:30 04/08/24 13:41 Temperature Pulse Rate 59 L 56 L 62 Respiratory Rate 20 24 22 Blood Pressure Pulse Oximetry 98 98 96 Oxygen Delivery Method Room Air 04/08/24 13:41 04/08/24 14:00 04/08/24 14:01 Temperature Pulse Rate 60 58 L Respiratory Rate 14 20 Blood Pressure 153/58 H Pulse Oximetry 97 99 Oxygen Delivery Method 04/08/24 14:01 04/08/24 14:20 04/08/24 14:20 Temperature Pulse Rate 59 L Respiratory Rate 20 Blood Pressure 152/65 H 143/106 H Pulse Oximetry 98 Oxygen Delivery Method 04/08/24 14:30 04/08/24 14:41 04/08/24 14:41 Temperature Pulse Rate 61 59 L Respiratory Rate 20 Blood Pressure 138/62 Pulse Oximetry 97 98 Oxygen Delivery Method Oxygen Delivery Method Room Air Narrative Exam Narrative: General:? Chronically ill appearing male, awake, alert and interactive. HEENT:? Normocephalic, atraumatic, extraocular muscles intact, oral pharynx is clear and mucous membranes are moist. Neck: supple and symmetric, trachea is midline, no cervical adenopathy. Negative for JVD Chest:? Normal AP diameter and contour without kyphoscoliosis, no tachypnea, equal chest rise bilaterally. Lungs:? CTA b/l no wheezing rhonchi or rales. Cardio:?RRR no m/r/g. Abdomen: S NT ND.. Extremities: right LE edema, 1+, circumferential erythema over his calf, minimally tender but erythematous compared with the left side and warm to touch. chronic foot deformity, with mild heel erythema. Swelling goes to knee, knee appears swollen compared to the left as well, but not significantly tender or warm. Neuro:? Alert, sensation to touch intact in all extremities, no gross deficits noted of cranial nerves. Psych:? Patient has a well-kept appearance, appropriate affect, mental status attitude thought context and judgment are appropriate for age. Objective ECG Impression: Sinus bradycardia, no acute ischemia. Labs 04/08/24 10:30 04/08/24 10:30 Labs: Laboratory Results - last 24 hr 04/08/24 04/08/24 04/08/24 09:33 10:30 11:04 WBC 8.0 RBC 3.43 L Hgb 11.2 L Hct 33.1 L MCV 96.4 MCH 32.6 MCHC 33.8 RDW 13.9 Plt Count 191 Neut % (Auto) 83.6 H Lymph % (Auto) 8.2 L [place] % (Auto) 7.3 Eos % (Auto) 0.6 L Baso % (Auto) 0.3 Neut # (Auto) 6700 Lymph # (Auto) 700 L [place] # (Auto) 600 Eos # (Auto) 100 Baso # (Auto) 0 PT 12.4 INR 1.1 APTT 29 Sodium 137 Potassium 3.6 Chloride 107 Carbon Dioxide 27 BUN 31 H Creatinine 1.31 H Estimated GFR 54 L BUN/Creatinine Ratio 23.7 H Glucose 109 Lactate 0.9 Calcium 8.4 Magnesium 2.0 Total Bilirubin 1.2 AST 42 ALT 6 Alkaline Phosphatase 65 Total Creatine Kinase 49 L Troponin I 0.042 H NT-Pro-B Natriuret Pep 4020 H Total Protein 6.4 Albumin 3.2 L Globulin 3.2 Albumin/Globulin Ratio 1.0 Lipase 26 Procalcitonin 2.16 H Urine Color Yellow Urine Appearance Clear Urine pH 5.0 Ur Specific [place] 1.025 Urine Protein 1+ H Urine Glucose (UA) Negative Urine Ketones 1+ H Urine Occult Blood Negative Urine Nitrate Negative Urine Bilirubin Negative Urine Urobilinogen 0.2 Ur Leukocyte Esterase Negative Urine RBC None seen Urine WBC 0-1/hpf Ur Squamous Epith Cells None seen Urine Bacteria None seen Ur Culture Indicated? Cult not indicated Vol Urine Centrifuged 10ml (spun) 04/08/24 12:59 WBC RBC Hgb Hct MCV MCH MCHC RDW Plt Count Neut % (Auto) Lymph % (Auto) [place] % (Auto) Eos % (Auto) Baso % (Auto) Neut # (Auto) Lymph # (Auto) [place] # (Auto) Eos # (Auto) Baso # (Auto) PT INR APTT Sodium Potassium Chloride Carbon Dioxide BUN Creatinine Estimated GFR BUN/Creatinine Ratio Glucose Lactate Calcium Magnesium Total Bilirubin AST ALT Alkaline Phosphatase Total Creatine Kinase Troponin I 0.041 H NT-Pro-B Natriuret Pep Total Protein Albumin Globulin Albumin/Globulin Ratio Lipase Procalcitonin Urine Color Urine Appearance Urine pH Ur Specific [place] Urine Protein Urine Glucose (UA) Urine Ketones Urine Occult Blood Urine Nitrate Urine Bilirubin Urine Urobilinogen Ur Leukocyte Esterase Urine RBC Urine WBC Ur Squamous Epith Cells Urine Bacteria Ur Culture Indicated? Vol Urine Centrifuged Assessment & Plan Assessment & Plan narrative: 1. Right lower extremity cellulitis and pain - given ceftriaxone 2g in the ER. Ordered to continue on cefazolin starting tomorrow, and start vancomycin per pharmacy to see if any improvement. - differential does include non-skeletal injury after fall, though his R leg is certainly warm and erythematous, and painful when he ambulates indicative of ongoing cellulitis not responding to outpatient antibiotic therapies. Trial oxycodone prior to ambulation. - radiographs are negative for acute fracture, he can WBAT - PT/OT consults, pain control, and antibiotics - No recent shortness of breath and with unilateral edema highly doubt heart failure as a cause of his swelling. RLE US negative for DVT. 2. Parkinson's disease - continue home sinemet, entacapone, and ropinorole (replace with formulary short acting instead of ER). 3. HTN - continue home amlodipine 2.5 mg BID 4. hypothyroidism - continue home levothyroxine - will check TSH Code: Full, surrogate is patient's spouse DVT: Lovenox daily I have utilized all available immediate resources to obtain, update, or review the patient's current medications. Dispo: patient admitted under observation status. Unclear if will be able to discharge back to assisted living or possible SNF, will have PT/OT evaluations. Additional history obtained via discussions with the ER provider, patient's spouse. These discussions contributed to the creation of the above assessment and plan. I have reviewed patient's presenting documentation, labs, and imaging personally. Time-Based Coding :: [TOTAL MINUTES] spent with patient and on the chart (including review of chart, obtaining history, exam, reviewing outside data, placing orders, documenting exam and treatment plan, and counseling patient) on [DATE].
--- NOTE | 2024-04-08 16:22 | CM.IDA ---
Initial DCP Assessment Patient is 84 y/o male who presents to ED via EMS due to concern for trouble urinating, Cellulitis, increased weakness and recent GLF. Patient's PCP is Patsy Cobb, patient has [employer] insurance. Patient has hx of Parkinson Disease with brain stimulatory, CAD, Hypertension, Hypothyroidism, hx of GI bleed, CKD stage III. ADMIN ASSISTANT is informed that patient is admitted as OBS due to concern for cellulitis. ADMIN ASSISTANT enters room to meet with patient, present in room is patient's . Patient presents as A/Ox4. Patient resides with at [facility]. It is reported that staff assists patient with dressing himself, medication management, meals and his recent incontinence issues. It is reported that patient's assists patient with showering. Patient can ambulate at baseline and uses FWW but patient had GLF on and has it is reported that he was having difficulty getting up and ambulating since Sunday. Patient endorses concern for pain in his ankle. Patient relies on paratransit or facility transport. It is reported that patient works with PT at [facility]. It is reported that patient has hx of HH services with [facility]. It is reported that patient and spouse have a friend that lives in [place]. Patient and spouse endorse preference for SNF rehab if covered by insurance with preference for [facility] or a local SNF. ADMIN ASSISTANT explains that [facility] is not contracted with [facility] but they may be able to review on a case by case basis. ADMIN ASSISTANT provides with lists of SNF rehab facilities. ADMIN ASSISTANT contacts [facility], it is reported that Mily can review patient. ADMIN ASSISTANT sends clinicals via email for review. Currently PT/OT orders are pending. Plan: patient admitted as OBS for further treatment and evaluation, pending PT/OT, f/u with [facility] regarding SNF rehab. SNF vs. HH at [facility]. KARISHMA Rider Discharge Planning/Care Management CM Discharge Assessment Start: 04/08/24 16:14 Freq: Status: Active Protocol: Document 04/08/24 16:15 LN (Rec: 04/08/24 16:21 LN [id number]) Discharge Planning Assessment Assigned Sizing Machine Operator KARISHMA Blanca DPOA/Assigned Designee Name Emily Lu/ Contact Information [phone] Advance Directives? Yes Advance Directives on File No History Provided By Patient,Significant Other, Medical Record Prior Living Arrangements Assisted Living Household Members spouse Type of transporation used prior to Public Transportation admit Comment paratransit Facility Name Admitted From: [facility] Willing to Return to Facility? Yes Independent with ADL's No Is patient alert and oriented? Yes Needs Assistance With Bathing,Grooming,Meal Prep, Toileting,Managing Medications ,Home Chores / Shopping Community Services used prior to Physical Therapy admission: DME Already Rented / Owned Wheelchair,FWW / Walker Patient/Family Preference Detention Facility Comment Spouse cannot drive and will need to arrange transport for herself, for now she will stay with patient at hospital. Discharge Plan Detention Facility Referrals Initiated Detention Additional Comment SNF rehab vs. HH at [facility] If patient plan is SNF: Has PASSR been No completed? Medicare Choice List Provided Yes Medicare choice list reviewed on family electronic tablet with SNF/HH Preference Preference is [facility] or another local SNF that accepts patient's insurance Has Agency SNF been contacted Yes Comment Called Mily at [facility] and faxed referral, pending PT/OT. Please Provide Date Initial DC 04/08/24 Assessment Was Performed
[2024-04-08] MEDS: CEFAZOLIN 2 GM/100 ML PREMIX 100 ML IV (18:08)
[2024-04-08] MEDS: VANCOMYCIN 1,250 MG/250 ML PIGGYBACK 250 MG IV (19:03)
[2024-04-08] MEDS: ROPINIROLE 1 MG TABLET 2 MG PO (20:18)
[2024-04-08] MEDS: LORazepam 0.5 MG TABLET PO (20:19)
[2024-04-08] MEDS: AMLODIPINE 5 MG TABLET 2.5 MG PO (20:19)
[2024-04-08] MEDS: CARBIDOPA-LEVODOPA ER 50/200 TABLET 1 EACH PO (20:19)
[2024-04-08] MEDS: ENTACAPONE 200 MG TABLET PO (20:19)
[2024-04-08] MEDS: OXYCODONE IR 5 MG TABLET PO (20:20)
[2024-04-08] MEDS: SODIUM CHLORIDE 0.9% FLUSH 10 ML IV (22:15)
[2024-04-09] VITALS (11 sets, daily range): BP systolic 100–138; BP diastolic 56–80; PULSE 47–63; RESP 16–24; TEMP 36.4–37.1; O2SAT 95–99
[2024-04-09] MEDS: CARBIDOPA-LEVODOPA 25/100 TABLET 2 EACH PO ×6 (00:15→20:07)
[2024-04-09] MEDS: OXYCODONE IR 5 MG TABLET PO ×2 (00:26→08:23)
[2024-04-09 04:36] LABS: Add Manual Diff / Slide Review NO; Basophils Absolute Auto 0 /uL (0-100); Basophils Percent Auto 0.5 % (0-2); Eosinophils Absolute Auto 100 /uL (0-450); Eosinophils Percent Auto 1.4 % (2-4); Hemoglobin 10.4 g/dL (13.5-17.5); Lymphocytes Absolute Auto 800 /uL (1100-4500); Lymphocytes Percent Auto 10.6 % (25-40); Mean Corpuscular HGB Conc 34.5 % (30-36); Mean Corpuscular Hemoglobin 32.9 PG (26-34); Mean Corpuscular Volume 95.3 fL (80-100); Monocytes Absolute Auto 600 /uL (0-900); Monocytes Percent Auto 7.9 % (3-14); Neutrophils Absolute Auto 6100 /uL (1500-7000); Neutrophils Percent Auto 79.6 % (50-75); Platelet Count 206 X10^3/uL (150-400); Red Blood Cell Count 3.15 X10^6/uL (4.5-5.9); Red Cell Distribution Width 13.5 % (11.6-14.8); White Blood Cell Count 7.6 X10^3/uL (4.5-11.0)
[2024-04-09 04:57] LABS: BUN Creatinine Ratio 25.2 (6-22); Blood Urea Nitrogen 26 mg/dL (9-20); Calcium 7.9 mg/dL (8.4-10.2); Carbon Dioxide 24 mmol/L (22-32); Chloride 110 mmol/L (98-107); Estimated Glomerular Filt Rate > 60 mL/min (>60); Glucose 110 mg/dL (80-110); HEMOLYSIS < 15 (0-50); Magnesium 1.9 mg/dL (1.6-2.3); Potassium 3.5 mmol/L (3.4-5.1); Sodium 136 mmol/L (137-145)
[2024-04-09] MEDS: LEVOTHYROXINE 50 MCG TABLET PO (05:30)
[2024-04-09] MEDS: ROPINIROLE 1 MG TABLET 2 MG PO ×3 (08:22→20:07)
[2024-04-09] MEDS: CARBIDOPA-LEVODOPA ER 50/200 TABLET 1 EACH PO ×2 (08:22→20:07)
[2024-04-09] MEDS: AMLODIPINE 5 MG TABLET 2.5 MG PO ×2 (08:22→20:07)
[2024-04-09] MEDS: ENTACAPONE 200 MG TABLET PO ×3 (08:22→20:07)
[2024-04-09] MEDS: ACETAMINOPHEN 325 MG TABLET 650 MG PO ×2 (08:23→17:52)
[2024-04-09] MEDS: ENOXAPARIN 40 MG/0.4 ML SYRINGE SUBCUT (08:23)
[2024-04-09] MEDS: SODIUM CHLORIDE 0.9% FLUSH 10 ML IV ×2 (08:23→20:10)
--- NOTE | 2024-04-09 10:56 | PT.IIE ---
Surgical History (Last Reviewed 04/08/24 @ 17:05 by Dipesh Fu DO) History of aortic valve replacement with porcine valve S/P deep brain stimulator placement (2019) Status post right knee replacement Medical History (Last Reviewed 04/08/24 @ 17:05 by Dipesh Fu DO) Anxiety CAD (coronary artery disease) Club foot of both lower extremities GI bleed (03/05/18) Hypertension Hypothyroidism Parkinson disease Skin cancer Physical Therapy Inpatient Evaluation/Re-Eval M1 PT/OT-IP Prior Functional Status Start: 04/09/24 12:34 Freq: NEEDED Status: Active Protocol: Document 04/09/24 10:56 AB (Rec: 04/09/24 12:49 AB [id number]) Medical Review Prior Functional Status Medical History Reviewed Yes Communication sleepy and inconsistent with following directions Mobility and Gait obtained pt's info from spouse : pt with h/o fall but was modified independent with ambulation using FWW; stated that [facility] staff assists pt with getting up from the bed in the morning and setting back into the bed at night; spouse assists pt with shower needs Social History Household Members spouse Living Arrangements Assisted Living Number of Stairs To Enter/Railing? pt and spouse lives at [facility] assisted Living: spouse stated that [facility] informed her that staff will not be able to assist pt if pt needs to be lifted for mobility lives on 2nd level apartment at [facility] and has an elevator to access Home Environment Standard Height Toilet,Walk in Shower,Built-In Shower Seat, Elevator Home Equipment Front Wheel Walker,Raised Toilet Seat w/Armrests,Hand Held Shower,Grab Bars Near Toilet,Grab Bars In Shower M2 PT-IP Current Condition Start: 04/09/24 12:34 Freq: NEEDED Status: Active Protocol: Document 04/09/24 10:56 AB (Rec: 04/09/24 12:49 AB [id number]) Physical Therapy Current Condition Current Condition Evaluation Date 04/09/24 Treatment Diagnosis RLE cellulitis; difficulty in walking Onset Date 04/08/24 M3 PT-IP Subjective Start: 04/09/24 12:34 Freq: NEEDED Status: Active Protocol: Document 04/09/24 10:56 AB (Rec: 04/09/24 12:49 AB [id number]) Subjective Physical Therapy Visit Type Type Initial Evaluation Visit Start Time 10:56 Visit Stop Time 11:30 Number of HAND LENS POLISHER Visits 0 Physical Therapy Visit Comments Patient Comments agreeable to do PT M4 PT-IP Mobility and Gait Start: 04/09/24 12:34 Freq: NEEDED Status: Active Protocol: Document 04/09/24 10:56 AB (Rec: 04/09/24 12:49 AB [id number]) PT-Bed Mobility Assessment Supine to Sit Supine to Sit Maximum Assistance,1 Person Assistance,Head of Bed Elevated,Bedrails Scooting Scooting to Edge of Bed Maximum Assistance PT-Transfer Assessment Sit to and From Stand Sit to and from Stand Maximum Assistance,1 Person Assistance,Use of Upper Extremities Equipment Transfer Assistive Device Gait Belt,Front Wheeled Walker Orthotic/Prosthetic Devices or Brace: No Transfers Transfer Destination Chair Transfer Technique ambulated Transfer Ability Level of Assist Maximum Assistance,1 Person Assistance,Use of Upper Extremities Comments Mobility Comments pt supine in bed asleep. spouse in room. obtained pt's PLOF and home set up from spouse. spouse stepped out of the room for a meeting. Woke pt up and agreed to get out of the bed. BP checedk: 93/54 . completed supine to sit max A and max cues with HOB elevated. max A for initial sitting balance on EOB with increase retro lean and lateral R sided leaning. max A for scooting to EOB. BP checked: 95/60. pt completed sit to stand max A and ambulated in room using FWW max A and max cues ~ 20 ft. presents with shuffling gait with increase stooped posture. pt sat on the chair and positioned on the chair. NAC to give pt a sponge bath. Left pt with NAC. Gait Assessment Gait Gait Assistance Required: Maximum Assistance Distance (Feet) 20 Able to Maintain Weight Bearing Status Yes During Gait Assistive Devices Assistive Device Gait Belt,Front Wheeled Walker Orthotic/Prosthetic Devices or Brace: No Gait Deviations General Gait Pattern Decreased Stride Length, Decreased Feet Clearance, Flexed Trunk,Step-to Gait Factors Limiting Gait Function Factors Limiting Gait Function Decreased Activity Tolerance, Decreased Strength,Difficulty Following Directions, Incoordination,Limited Range of Motion,Poor Balance,Poor Safety Awareness PT-Balance Assessment Sitting Balance and Reactions Static Sitting Balance Ability Fair Dynamic Sitting Balance Ability Poor Standing Balance and Reactions Static Standing Balance Ability Poor Dynamic Standing Balance Ability Poor Device Used FWW M5 PT-IP Objective Assessments Start: 04/09/24 12:34 Freq: NEEDED Status: Active Protocol: Document 04/09/24 10:56 AB (Rec: 04/09/24 12:49 AB [id number]) Orientation Orientation/Cognition Level of Alertness Confusional State Orientation Name Safety Awareness Decreased Safety Awareness Memory Description Short Term Impaired Gross Range of Motion Lower Extremity ROM Assessment Within Functional Limits Strength Lower Extremity Strength Hip 3+/5 Knee 4-/5 Muscle Tone Muscle Tone WNL Yes M6 PT-IP Treatment Start: 04/09/24 12:34 Freq: NEEDED Status: Active Protocol: Document 04/09/24 10:56 AB (Rec: 04/09/24 12:49 AB [id number]) Physical Therapy Treatment Education Education Provided Safety M7 PT-IP Assessment and Plan Start: 04/09/24 12:34 Freq: NEEDED Status: Active Protocol: Document 04/09/24 10:56 AB (Rec: 04/09/24 12:49 AB [id number]) PT Summary Assessment and Plan Potential Rehabilitation Potential Fair Status of Condition at Evaluation Evolving Summary Impairments Pain,ROM,Strength,Balance, Coordination,Sensation,Tone, Cognition,Bed Mobility, Transfers,Gait,Activity Tolerance Assessment Summary pt is an 84 y/o M who is admitted for RLE cellulits and weakness. pt with h/o falls. pt requiring max A with all mobilities using fWW. pt lives at [facility] with spouse. Pt stated that [facility] will not be able to provide assistance to pt if they have to lift pt up. pt will require SNF rehab to improve overall strength and function. will continue to assess. Goals Bed Mobility Goal Minimal Assistance Transfer Goal Minimal Assistance,Front Wheeled Walker Gait Goal Minimal Assistance,Front Wheel Walker Gait Distance 50 Other Goals improve bed mobility, transfers, ambulation using FWW SBA ~ 200 ft Days to Meet Goals 10 Frequency of Treatment Frequency Of Treatment Once a Day Treatment Plan Physical Therapy Treatment Plan Bed Mobility Training,Transfer Training,Gait Training, Therapeutic Exercise,Balance Retraining,Discharge Planning, Hot or Cold Pack,Neuromuscular Re-ed,Coordination Retraining ,Manual Therapy Precautions Other Precautions falls Recommendations To Nursing Amount of Assist Needed 1 Person Assist Discharge Recommendations PT Discharge Recommendations SNF Rehab Transportation Needs at Discharge Private Vehicle,Wheelchair/ Cabulance
[2024-04-09] MEDS: POTASSIUM CHLORIDE 20 MEQ TAB 40 MEQ PO (11:15)
[2024-04-09] MEDS: CEFAZOLIN 2 GM/100 ML PREMIX 100 ML IV ×2 (11:15→17:52)
--- NOTE | 2024-04-09 13:47 | OT.IP.EVAL ---
Past Medical History (Last Reviewed 04/08/24 @ 17:05 by Dipesh Fu DO) Anxiety CAD (coronary artery disease) Club foot of both lower extremities GI bleed (03/05/18) Hypertension Hypothyroidism Parkinson disease Skin cancer Surgical History (Last Reviewed 04/08/24 @ 17:05 by Dipesh Fu DO) History of aortic valve replacement with porcine valve S/P deep brain stimulator placement (2019) Status post right knee replacement Occupational Therapy Inpatient Evaluation/Re-Eval M1 PT/OT-IP Prior Functional Status Start: 04/09/24 12:34 Freq: NEEDED Status: Active Protocol: Document 04/09/24 13:46 [facility] (Rec: 04/09/24 13:56 [facility] [id number]) Medical Review Prior Functional Status Medical History Reviewed Yes Communication sleepy and inconsistent with following directions Mobility and Gait obtained pt's info from spouse : pt with h/o fall but was modified independent with ambulation using FWW; stated that [facility] staff assists pt with getting up from the bed in the morning and setting back into the bed at night; spouse assists pt with shower needs Activities of Daily Living and IADL's Pt needs assist for dressing at times toileting and assist him with bathing needs. Social History Household Members spouse Living Arrangements Assisted Living Number of Stairs To Enter/Railing? pt and spouse lives at [facility] assisted Living: spouse stated that [facility] informed her that staff will not be able to assist pt if pt needs to be lifted for mobility lives on 2nd level apartment at [facility] and has an elevator to access Home Environment Standard Height Toilet,Walk in Shower,Built-In Shower Seat, Elevator Home Equipment Front Wheel Walker,Raised Toilet Seat w/Armrests,Hand Held Shower,Grab Bars Near Toilet,Grab Bars In Shower M2 OT-IP Current Condition Start: 04/09/24 13:46 Freq: Status: Active Protocol: Document 04/09/24 13:46 [facility] (Rec: 04/09/24 13:56 [facility] [id number]) Occupational Therapy Current Condition Current Condition Evaluation Date 04/09/24 Treatment Diagnosis RLE cellulitis Diagnosis Onset Date 04/08/24 M3 OT- IP Subjective and Pain Start: 04/09/24 13:46 Freq: Status: Active Protocol: Document 04/09/24 13:46 [facility] (Rec: 04/09/24 13:56 [facility] [id number]) OT- Subjective Occupational Therapy Visit Type Type Initial Evaluation Visit Start Time 13:30 Visit Stop Time 13:47 Occupational Therapy Visit Comments Patient Comments Pt wanting to get back to bed. Patient/Caregiver Goals Pt's wanting pt to go to skilled rehab. OT Pain Assessment Pain When Pain Assessed At Rest Pain Present Pain Present Denied Pain M4 OT- IP ADL's Start: 04/09/24 13:46 Freq: Status: Active Protocol: Document 04/09/24 13:46 [facility] (Rec: 04/09/24 13:56 [facility] [id number]) OT [id number] Comments OT Self-Feeding Comments Not at meal time. OT ADL-Grooming Comments OT Grooming Comments Not performed. OT ADL-Oral Care Comments Oral Care Comments Not performed. OT ADL-Dressing General Eval Lower Body Dressing Ability Maximum Assistance Areas Needing Assistance Socks OT ADL-Toileting General Evaluation Toileting Ability Total Assistance Areas Needing Assistance Empty Catheter or Colostomy Comments OT Toileting Comments Kay in place. OT ADL-Bathing Comments OT Bathing Comments NOt performed. M5 OT- IP IADL's Start: 04/09/24 13:46 Freq: Status: Active Protocol: Document 04/09/24 13:46 [facility] (Rec: 04/09/24 13:56 [facility] [id number]) OT-Instrumental Activities of Daily Living Home Safety Awareness Awareness of Need for Assistance at Home Decreased Awareness Ability to Problem Solve Emergency Unable to Problem Solve Situations Medication Management Medication Management Caregiver Administers Money Management Money Management Caregiver Provides Assistance Meal Preparation Meal Preparation Caregiver Provides Assist Longitudinal Float Operator Longitudinal Float Operator Caregiver Provides Assist Driving Driving Concerns Identified Regarding Safety M6 OT- IP Functional Cognition Start: 04/09/24 13:46 Freq: Status: Active Protocol: Document 04/09/24 13:46 [facility] (Rec: 04/09/24 13:56 [facility] [id number]) Cognitive Factors Limiting Selfcare Function Cognitive Ability Level of Alertness Alert,Confusional State Patient Orientation Name Attention Span Ability Capable of Focused Attention, Unable to Sustain Attention Ability to Follow Commands Able to Follow One Step Commands with Increased Time, Able to Follow One Step Commands with Repetition Cognitive Comments Cognitive Assessment Comments Pt needing verbal and tactile cues to follow for mobility needs. Pt also needing concrete cues. Pt not having his hear aids in the hospital which also making it hard for the pt to follow commands. Pt's feels that pt is more confused and not at his prior cognitive function at this time. OT- Vision and Hearing OT- Hearing Assessment OT- Hearing Assessment Hearing Impaired,Use of Hearing Aids OT- Vision Assessment Visual Acuity Glasses All The Time Vision Assessment Comments Pt's hearing aids not in the hospital. M7 OT- IP Mobility and Balance Start: 04/09/24 13:46 Freq: Status: Active Protocol: Document 04/09/24 13:46 [facility] (Rec: 04/09/24 13:56 [facility] [id number]) OT- Bed Mobility Assessment Sit to Supine Sit to Supine Assist Maximum Assistance Scooting Scooting to Edge of Bed Moderate Assistance OT-Transfer Assessment Sit to and From Stand Sit to and from Stand Maximum Assistance,1 Person Assistance Transfers Transfer Ability Maximum Assistance,1 Person Assistance Technique Transfer Destination Bed,Chair Transfer Technique Stand Step Pivot Devices Transfer Assistive Devices Gait Belt,Front Wheeled Walker Comments Mobility Comments MAXAx1 to stand and pt heavily leans on his heels and MAXA to steady the FWW and for his balance. Pt tends to shuffle his feet during the transfer. OT- Balance Assessment Sitting Balance and Reactions Static Sitting Balance Ability Poor Dynamic Sitting Balance Ability Poor Standing Balance and Reactions Static Standing Balance Ability Poor Dynamic Standing Balance Ability Poor Comments Other Balance Tests/Deviations/Treatment Pt tends to lean to the right : while seated on the edge of the bed and needing CGA to BUBBA for his balance. M8 OT- IP Objective Assessments Start: 04/09/24 13:46 Freq: Status: Active Protocol: Document 04/09/24 13:46 [facility] (Rec: 04/09/24 13:56 [facility] [id number]) OT Gross Range of Motion Upper Extremity Range of Motion Assessment Bilaterally Impaired OT Strength Upper Extremity Strength Assessment Bilaterally Impaired Comments Strength Comments BUE 3-/5 to 4-/5 M9 OT- IP Assessment and Plan Start: 04/09/24 13:46 Freq: Status: Active Protocol: Document 04/09/24 13:46 [facility] (Rec: 04/09/24 13:56 [facility] [id number]) OT Summary Assessment and Plan Potential Rehabilitation Potential Fair Analytic Complexity at Evaluation Moderate Summary OT Impairments Range of Motion,Strength, Balance,Functional Cognition, Functional Mobility Progress Towards Goals Slow Progress due to Medical Issues,Slow Progress due to Activity Tolerance,Slow Progress due to Cognition Assessment Summary Pt MOD complexity and main barriers are decreased safety awareness, balance, strength and now needing MAX AX 1 for transfer and may need two person assist for transfers from lower surfaces and when pt is tired. Pt prior able to transfer on his own and recent due to falls needing more asisst from his to move. Pt will benefit from skilled rehab prior to going home. Goals Self-Feeding Goal Standby Assistance Grooming Goal Standby Assistance Dressing Goal Moderate Assistance Toileting Goal Moderate Assistance Bathing Goal Moderate Assistance Toilet Transfer Goal Minimal Assistance Shower Transfer Goal Minimal Assistance Days to Meet Goals 20 Frequency of Treatment Other frequency 5x/week Treatment Plan OT Treatment Plan ADL Training,Functional Cognition Training,Functional Mobility,Patient/Family Education,Discharge Planning Other Treatment Recommendations and Next Transfer with FWW with MODA X Treatment Focus [place] [facility] [place]charge Recommendations OT Discharge Recommendations SNF Rehab Transportation Needs at Discharge Wheelchair/Cabulance
--- NOTE | 2024-04-09 16:13 | P.PN_ITS ---
Subjective Subjective Interval history: His leg pain is better today, leg is slightly less swollen. He was moving with assistance with therapies, recommended for SNF. Exam Vital Signs (past 8 hours): - 04/09/24 08:15 04/09/24 09:00 04/09/24 12:00 Temperature 97.5 F L Pulse Rate 47 L Respiratory Rate 16 Blood Pressure 100/59 L Pulse Oximetry 99 96 Oxygen Delivery Method Room Air Room Air Oxygen Flow Rate 0 04/09/24 13:00 04/09/24 16:00 Temperature 97.9 F Pulse Rate 63 Respiratory Rate 16 Blood Pressure 110/62 Pulse Oximetry 96 99 Oxygen Delivery Method Room Air Oxygen Flow Rate 0 Oxygen Delivery Method Room Air Oxygen Flow Rate 0 Narrative Exam Narrative: General:? Chronically ill appearing male, awake, alert and interactive. HEENT:? Normocephalic, atraumatic, extraocular muscles intact, oral pharynx is clear and mucous membranes are moist. Neck: supple and symmetric, trachea is midline, no cervical adenopathy. Negative for JVD Chest:? Normal AP diameter and contour without kyphoscoliosis, no tachypnea, equal chest rise bilaterally. Lungs:? CTA b/l no wheezing rhonchi or rales. Cardio:?RRR no m/r/g. Abdomen: S NT ND.. Extremities: Right leg appears slightly less swollen today, his tenderness is improved. Slight improvement in erythema as well. Neuro:? Alert, sensation to touch intact in all extremities, no gross deficits noted of cranial nerves. Psych:? Patient has a well-kept appearance, appropriate affect, mental status attitude thought context and judgment are appropriate for age. Objective Labs 04/09/24 04:22 04/09/24 04:22 Labs: Laboratory Results - last 24 hr 04/09/24 04:22 WBC 7.6 RBC 3.15 L Hgb 10.4 L Hct 30.0 L MCV 95.3 MCH 32.9 MCHC 34.5 RDW 13.5 Plt Count 206 Neut % (Auto) 79.6 H Lymph % (Auto) 10.6 L [place] % (Auto) 7.9 Eos % (Auto) 1.4 L Baso % (Auto) 0.5 Neut # (Auto) 6100 Lymph # (Auto) 800 L [place] # (Auto) 600 Eos # (Auto) 100 Baso # (Auto) 0 Sodium 136 L Potassium 3.5 Chloride 110 H Carbon Dioxide 24 BUN 26 H Creatinine 1.03 Estimated GFR > 60 BUN/Creatinine Ratio 25.2 H Glucose 110 Calcium 7.9 L Magnesium 1.9 PFSH Medical History CAD (coronary artery disease) Skin cancer Anxiety Club foot of both lower extremities GI bleed (03/05/18) Hypertension Hypothyroidism Parkinson disease Surgical History 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 Right lower extremity cellulitis and pain - given ceftriaxone 2g in the ER. Ordered to continue on cefazolin today, and started vancomycin per pharmacy with some improvement today in ambulation and on exam. - differential does include non-skeletal injury after fall, though his R leg is certainly warm and erythematous, and painful when he ambulates indicative of ongoing cellulitis not responding to outpatient antibiotic therapies. Trial oxycodone prior to ambulation. - radiographs are negative for acute fracture, he can WBAT - PT/OT consults, pain control, and antibiotics - No recent shortness of breath and with unilateral edema highly doubt heart failure as a cause of his swelling. RLE US negative for DVT. 2. Parkinson's disease - continue home sinemet, entacapone, and ropinorole (replace with formulary short acting instead of ER). 3. HTN - continue home amlodipine 2.5 mg BID 4. hypothyroidism - continue home levothyroxine - will check TSH Code: Full, surrogate is patient's spouse DVT: Lovenox daily I have utilized all available immediate resources to obtain, update, or review the patient's current medications. Dispo: patient admitted under observation status. PT/OT recommended SNF Time-Based Coding :: [TOTAL MINUTES] spent with patient and on the chart (including review of chart, obtaining history, exam, reviewing outside data, placing orders, documenting exam and treatment plan, and counseling patient) on [DATE].
[2024-04-09] MEDS: VANCOMYCIN 1,250 MG/250 ML PIGGYBACK 250 MG IV (18:45)
[2024-04-09] MEDS: LORazepam 0.5 MG TABLET PO (20:52)
[2024-04-10] VITALS (11 sets, daily range): BP systolic 120–151; BP diastolic 66–83; PULSE 51–63; RESP 15–24; TEMP 36.3–36.9; O2SAT 94–99
[2024-04-10] MEDS: CARBIDOPA-LEVODOPA 25/100 TABLET 2 EACH PO ×6 (01:02→20:30)
[2024-04-10] MEDS: CEFAZOLIN 2 GM/100 ML PREMIX 100 ML IV ×3 (01:08→16:38)
[2024-04-10] MEDS: OXYCODONE IR 5 MG TABLET PO (04:59)
[2024-04-10] MEDS: LEVOTHYROXINE 50 MCG TABLET PO (05:20)
[2024-04-10 05:53] LABS: Add Manual Diff / Slide Review NO; Basophils Absolute Auto 0 /uL (0-100); Basophils Percent Auto 0.5 % (0-2); Eosinophils Absolute Auto 200 /uL (0-450); Eosinophils Percent Auto 2.9 % (2-4); Hematocrit 32.8 % (41-53); Lymphocytes Absolute Auto 700 /uL (1100-4500); Lymphocytes Percent Auto 9.7 % (25-40); Mean Corpuscular HGB Conc 33.6 % (30-36); Mean Corpuscular Hemoglobin 32.3 PG (26-34); Mean Corpuscular Volume 96.1 fL (80-100); Monocytes Absolute Auto 600 /uL (0-900); Monocytes Percent Auto 7.7 % (3-14); Neutrophils Absolute Auto 6000 /uL (1500-7000); Neutrophils Percent Auto 79.2 % (50-75); Platelet Count 269 X10^3/uL (150-400); Red Blood Cell Count 3.42 X10^6/uL (4.5-5.9); Red Cell Distribution Width 13.7 % (11.6-14.8); White Blood Cell Count 7.6 X10^3/uL (4.5-11.0)
[2024-04-10 06:04] LABS: BUN Creatinine Ratio 21.4 (6-22); Blood Urea Nitrogen 24 mg/dL (9-20); Carbon Dioxide 26 mmol/L (22-32); Chloride 110 mmol/L (98-107); Estimated Glomerular Filt Rate > 60 mL/min (>60); Glucose 101 mg/dL (80-110); HEMOLYSIS < 15 (0-50); Potassium 3.7 mmol/L (3.4-5.1); Sodium 138 mmol/L (137-145)
[2024-04-10] MEDS: ROPINIROLE 1 MG TABLET 2 MG PO ×3 (08:16→20:17)
[2024-04-10] MEDS: AMLODIPINE 5 MG TABLET 2.5 MG PO ×2 (08:17→20:18)
[2024-04-10] MEDS: ENTACAPONE 200 MG TABLET PO ×2 (08:17→12:36)
[2024-04-10] MEDS: CARBIDOPA-LEVODOPA ER 50/200 TABLET 1 EACH PO ×2 (08:17→20:30)
[2024-04-10] MEDS: SODIUM CHLORIDE 0.9% FLUSH 10 ML IV ×2 (08:18→20:19)
[2024-04-10] MEDS: ENOXAPARIN 40 MG/0.4 ML SYRINGE SUBCUT (08:18)
--- NOTE | 2024-04-10 11:54 | CM.DPC ---
DCP Cont. Reviewed EMR and team rounds for status updates. Pt has been accepted at [facility] for 04/11, will call in the am to clarify transport time. Called to explain that there will be a $225/day co-pay, which she was agreeable about. Will fax d/c clinicals and scripts prior to his departure.
--- NOTE | 2024-04-10 14:23 | OT.IP.TRT ---
Occupational Therapy Treatment Note M2 OT-IP Current Condition Start: 04/09/24 13:46 Freq: Status: Active Protocol: Document 04/09/24 13:46 [facility] (Rec: 04/09/24 13:56 [facility] [id number]) Occupational Therapy Current Condition Current Condition Evaluation Date 04/09/24 Treatment Diagnosis RLE cellulitis Diagnosis Onset Date 04/08/24 M3 OT- IP Subjective and Pain Start: 04/09/24 13:46 Freq: Status: Active Protocol: Document 04/10/24 14:25 [facility] (Rec: 04/10/24 14:39 [facility] [id number]) OT- Subjective Occupational Therapy Visit Type Type Treatment Note Visit Start Time 13:58 Visit Stop Time 14:23 Occupational Therapy Visit Comments Patient Comments Pt agreed to get up. Patient/Caregiver Goals TO get better. OT Pain Assessment Pain When Pain Assessed During Mobility Pain Present Pain Present Pain Reported Location Right Leg Pain Behaviors Facial Grimacing,Wincing M4 OT- IP ADL's Start: 04/09/24 13:46 Freq: Status: Active Protocol: Document 04/10/24 14:25 [facility] (Rec: 04/10/24 14:39 [facility] [id number]) OT ADL-Grooming General Evaluation Grooming Ability Standby Assistance Areas Needing Assistance Retrieving/Set-up of Grooming Items Comments OT Grooming Comments Pt able to do while seated on the edge of the bed and cues to sit ot midline. OT ADL-Oral Care General Eval Oral Care Ability Standby Assistance Areas of Assistance Retrieving/Set-Up of Items OT ADL-Dressing General Eval Lower Body Dressing Ability Maximum Assistance Areas Needing Assistance Shoes OT ADL-Toileting General Evaluation Toileting Ability Total Assistance Comments OT Toileting Comments Kay in place. M5 OT- IP IADL's Start: 04/09/24 13:46 Freq: Status: Active Protocol: Document 04/09/24 13:46 [facility] (Rec: 04/09/24 13:56 [facility] [id number]) OT-Instrumental Activities of Daily Living Home Safety Awareness Awareness of Need for Assistance at Home Decreased Awareness Ability to Problem Solve Emergency Unable to Problem Solve Situations Medication Management Medication Management Caregiver Administers Money Management Money Management Caregiver Provides Assistance Meal Preparation Meal Preparation Caregiver Provides Assist Elder Counselor Elder Counselor Caregiver Provides Assist Driving Driving Concerns Identified Regarding Safety M6 OT- IP Functional Cognition Start: 04/09/24 13:46 Freq: Status: Active Protocol: Document 04/10/24 14:25 [facility] (Rec: 04/10/24 14:39 [facility] [id number]) Cognitive Factors Limiting Selfcare Function Cognitive Ability Level of Alertness Alert Patient Orientation Name Attention Span Ability Capable of Focused Attention, Capable of Sustained Attention Ability to Follow Commands Able to Follow One Step Commands with Increased Time, Able to Follow One Step Commands with Repetition Cognitive Comments Cognitive Assessment Comments Pt very forgetful but pleasant and able to follow simple commands. Pt still needing MAX vc for hand placement when sitting and coming to stand. M7 OT- IP Mobility and Balance Start: 04/09/24 13:46 Freq: Status: Active Protocol: Document 04/10/24 14:25 [facility] (Rec: 04/10/24 14:39 [facility] [id number]) OT-Transfer Assessment Sit to and From Stand Sit to and from Stand Minimal Assistance,Moderate Assistance,Maximum Assistance Comments Mobility Comments Worked on stretching to the left and pt lateral tilt to the right. Prior to stretching , pt needing MODA to stand and afterwards BUBBA and better able to get into anterior tilt and put weight over his feet to come to stand. Pt able to scoot to the head of the bed with CGA. OT- Balance Assessment Sitting Balance and Reactions Static Sitting Balance Ability Fair Dynamic Sitting Balance Ability Poor Standing Balance and Reactions Static Standing Balance Ability Poor Comments Other Balance Tests/Deviations/Treatment Pt able to sit on the edge of : the bed with SBA. Pt still unsteady on his feet and tends to lean to the right. M8 OT- IP Objective Assessments Start: 04/09/24 13:46 Freq: Status: Active Protocol: Document 04/09/24 13:46 [facility] (Rec: 04/09/24 13:56 [facility] [id number]) OT Gross Range of Motion Upper Extremity Range of Motion Assessment Bilaterally Impaired OT Strength Upper Extremity Strength Assessment Bilaterally Impaired Comments Strength Comments BUE 3-/5 to 4-/5 M9 OT- IP Assessment and Plan Start: 04/09/24 13:46 Freq: Status: Active Protocol: Document 04/10/24 14:25 [facility] (Rec: 04/10/24 14:39 [facility] [id number]) OT Summary Assessment and Plan Potential Rehabilitation Potential Good Analytic Complexity at Evaluation Moderate Summary OT Impairments Range of Motion,Strength, Balance,Functional Cognition, Functional Mobility Progress Towards Goals Progressing Toward Goals Assessment Summary Pt moving better however still unsteady on his feet. Pt's states will have pt to go to skilled rehab. Goals Self-Feeding Goal Standby Assistance Grooming Goal Standby Assistance Dressing Goal Moderate Assistance Toileting Goal Moderate Assistance Bathing Goal Moderate Assistance Toilet Transfer Goal Contact Guard Assistance Shower Transfer Goal Contact Guard Assistance Days to Meet Goals 20 Frequency of Treatment Other frequency 5x/week Treatment Plan OT Treatment Plan ADL Training,Functional Cognition Training,Functional Mobility,Patient/Family Education,Discharge Planning Discharge Recommendations OT Discharge Recommendations SNF Rehab Transportation Needs at Discharge Wheelchair/Cabulance
--- NOTE | 2024-04-10 14:40 | PT.IPTN ---
Physical Therapy Treatment Note M2 PT-IP Current Condition Start: 04/09/24 12:34 Freq: NEEDED Status: Active Protocol: Document 04/09/24 10:56 [facility] (Rec: 04/09/24 12:49 [facility] [id number]) Physical Therapy Current Condition Current Condition Evaluation Date 04/09/24 Treatment Diagnosis RLE cellulitis; difficulty in walking Onset Date 04/08/24 M3 PT-IP Subjective Start: 04/09/24 12:34 Freq: NEEDED Status: Active Protocol: Document 04/10/24 15:11 TS (Rec: 04/10/24 15:21 TS [id number]) Subjective Physical Therapy Visit Type Type Treatment Note Visit Start Time 14:40 Visit Stop Time 15:10 Notes Spouse present Number of MARKETING ASSISTANT MANAGER Visits 1 Physical Therapy Visit Comments Patient Comments Pt found resting in bed, he is agreeable to PT. M4 PT-IP Mobility and Gait Start: 04/09/24 12:34 Freq: NEEDED Status: Active Protocol: Document 04/10/24 15:11 TS (Rec: 04/10/24 15:21 TS [id number]) PT-Bed Mobility Assessment Supine to Sit Supine to Sit Contact Guard Assistance,1 Person Assistance,Head of Bed Elevated,Bedrails Sit to Supine Sit to Supine Moderate Assistance,1 Person Assistance Scooting Scooting to Edge of Bed Contact Guard Assistance PT-Transfer Assessment Sit to and From Stand Sit to and from Stand Maximum Assistance,1 Person Assistance Equipment Transfer Assistive Device Gait Belt,Front Wheeled Walker Orthotic/Prosthetic Devices or Brace: No Comments Mobility Comments Supine to sit CGA with HOB elevated. STS with FWW MaxA, pt has a posterior lean. He ambulates in the room 3x20' with rest breaks inbetween. Pt ambulates with flexed posture and a shuffle gait, he requires MaxA for balance. Sit to supine into bed ModA for Le's. Pt was left in bed, all needs met. Gait Assessment Gait Gait Assistance Required: Maximum Assistance Distance (Feet) 60 Assistive Devices Assistive Device Gait Belt,Front Wheeled Walker Orthotic/Prosthetic Devices or Brace: No Gait Deviations General Gait Pattern Decreased Stride Length, Decreased Feet Clearance, Flexed Trunk,Step-to Gait Factors Limiting Gait Function Factors Limiting Gait Function Decreased Activity Tolerance, Decreased Strength,Difficulty Following Directions, Incoordination,Limited Range of Motion,Poor Balance,Poor Safety Awareness PT-Balance Assessment Sitting Balance and Reactions Static Sitting Balance Ability Fair Dynamic Sitting Balance Ability Poor Standing Balance and Reactions Static Standing Balance Ability Poor Dynamic Standing Balance Ability Poor Device Used FWW M5 PT-IP Objective Assessments Start: 04/09/24 12:34 Freq: NEEDED Status: Active Protocol: Document 04/09/24 10:56 [facility] (Rec: 04/09/24 12:49 AB [id number]) Orientation Orientation/Cognition Level of Alertness Confusional State Orientation Name Safety Awareness Decreased Safety Awareness Memory Description Short Term Impaired Gross Range of Motion Lower Extremity ROM Assessment Within Functional Limits Strength Lower Extremity Strength Hip 3+/5 Knee 4-/5 Muscle Tone Muscle Tone WNL Yes M6 PT-IP Treatment Start: 04/09/24 12:34 Freq: NEEDED Status: Active Protocol: Document 04/10/24 15:11 TS (Rec: 04/10/24 15:21 TS [id number]) Physical Therapy Treatment Education Education Provided Safety M7 PT-IP Assessment and Plan Start: 04/09/24 12:34 Freq: NEEDED Status: Active Protocol: Document 04/10/24 15:11 TS (Rec: 04/10/24 15:21 TS [id number]) PT Summary Assessment and Plan Potential Rehabilitation Potential Fair Summary Impairments Pain,ROM,Strength,Balance, Coordination,Sensation,Tone, Cognition,Bed Mobility, Transfers,Gait,Activity Tolerance Progress Towards Goals Slow Progress due to Medical Issues,Slow Progress due to Activity Tolerance Assessment Summary Pt is making slow progress with his mobility. He requires MaxA for ambulation. pt is very unsteady and has poor balance. He did require decreased assist for bed mobility this session. PT continues to recommend SNF. Goals Bed Mobility Goal Minimal Assistance Transfer Goal Minimal Assistance,Front Wheeled Walker Gait Goal Minimal Assistance,Front Wheel Walker Gait Distance 50 Other Goals improve bed mobility, transfers, ambulation using FWW SBA ~ 200 ft Days to Meet Goals 10 Frequency of Treatment Frequency Of Treatment Once a Day Treatment Plan Physical Therapy Treatment Plan Bed Mobility Training,Transfer Training,Gait Training, Therapeutic Exercise,Balance Retraining,Discharge Planning, Hot or Cold Pack,Neuromuscular Re-ed,Coordination Retraining ,Manual Therapy Precautions Other Precautions falls Recommendations To Nursing Amount of Assist Needed 1 Person Assist Discharge Recommendations PT Discharge Recommendations SNF Rehab Transportation Needs at Discharge Private Vehicle,Wheelchair/ Cabulance
--- NOTE | 2024-04-10 16:58 | PM.PN.1 ---
Subjective Subjective Interval history: His leg pain is better today, leg is slightly less swollen. He was moving with assistance with therapies, recommended for SNF. Exam Vital Signs (past 8 hours): - 04/10/24 09:00 04/10/24 12:00 04/10/24 13:00 Temperature 98.5 F Pulse Rate 51 L Respiratory Rate 15 Blood Pressure 133/67 Pulse Oximetry 94 97 97 Oxygen Delivery Method Room Air Room Air Oxygen Flow Rate 0 04/10/24 16:00 Temperature 97.9 F Pulse Rate 63 Respiratory Rate 15 Blood Pressure 120/67 Pulse Oximetry 96 Oxygen Delivery Method Oxygen Flow Rate 0 Oxygen Delivery Method Room Air Oxygen Flow Rate 0 Narrative Exam Narrative: General:? Chronically ill appearing male, awake, alert and interactive. HEENT:? Normocephalic, atraumatic, extraocular muscles intact, oral pharynx is clear and mucous membranes are moist. Neck: supple and symmetric, trachea is midline, no cervical adenopathy. Negative for JVD Chest:? Normal AP diameter and contour without kyphoscoliosis, no tachypnea, equal chest rise bilaterally. Lungs:? CTA b/l no wheezing rhonchi or rales. Cardio:?RRR no m/r/g. Abdomen: S NT ND.. Extremities: Right leg appears slightly less swollen today, his tenderness is improved. Slight improvement in erythema as well. Neuro:? Alert, sensation to touch intact in all extremities, no gross deficits noted of cranial nerves. Psych:? Patient has a well-kept appearance, appropriate affect, mental status attitude thought context and judgment are appropriate for age. Objective Labs 04/10/24 05:02 04/10/24 05:02 Labs: Laboratory Results - last 24 hr 04/10/24 05:02 WBC 7.6 RBC 3.42 L Hgb 11.0 L Hct 32.8 L MCV 96.1 MCH 32.3 MCHC 33.6 RDW 13.7 Plt Count 269 Neut % (Auto) 79.2 H Lymph % (Auto) 9.7 L Franklin % (Auto) 7.7 Eos % (Auto) 2.9 Baso % (Auto) 0.5 Neut # (Auto) 6000 Lymph # (Auto) 700 L Franklin # (Auto) 600 Eos # (Auto) 200 Baso # (Auto) 0 Sodium 138 Potassium 3.7 Chloride 110 H Carbon Dioxide 26 BUN 24 H Creatinine 1.12 Estimated GFR > 60 BUN/Creatinine Ratio 21.4 Glucose 101 Calcium 8.0 L Magnesium 2.0 PFSH Medical History CAD (coronary artery disease) Skin cancer Anxiety Club foot of both lower extremities GI bleed (03/05/18) Hypertension Hypothyroidism Parkinson disease Surgical History 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 Right lower extremity cellulitis and pain - given ceftriaxone 2g in the ER. Ordered to continue on cefazolin today, and started vancomycin per pharmacy with some improvement today in ambulation and on exam. - differential does include non-skeletal injury after fall, though his R leg is certainly warm and erythematous, and painful when he ambulates indicative of ongoing cellulitis not responding to outpatient antibiotic therapies. But has improved since admission and initiation of IV antibiotics. - radiographs are negative for acute fracture, he can WBAT - PT/OT consults, pain control, and antibiotics. Pending SNF. - No recent shortness of breath and with unilateral edema highly doubt heart failure as a cause of his swelling. RLE US negative for DVT. 2. Parkinson's disease - continue home sinemet, entacapone, and ropinorole (replace with formulary short acting instead of ER). 3. HTN - continue home amlodipine 2.5 mg BID 4. hypothyroidism - continue home levothyroxine - will check TSH Code: Full, surrogate is patient's spouse DVT: Lovenox daily I have utilized all available immediate resources to obtain, update, or review the patient's current medications. Dispo: patient admitted under inpatient status. PT/OT recommended SNF. Possibly ready tomorrow. Time-Based Coding :: [TOTAL MINUTES] spent with patient and on the chart (including review of chart, obtaining history, exam, reviewing outside data, placing orders, documenting exam and treatment plan, and counseling patient) on [DATE].
[2024-04-10] MEDS: VANCOMYCIN 1,250 MG/250 ML PIGGYBACK 250 MG IV (17:24)
[2024-04-10] MEDS: LORazepam 0.5 MG TABLET PO (20:17)
[2024-04-11] VITALS: BP 123/57; PULSE 64; RESP 18; TEMP 36.2; O2SAT 98
[2024-04-11] MEDS: CARBIDOPA-LEVODOPA 25/100 TABLET 2 EACH PO ×4 (01:01→12:51)
[2024-04-11] MEDS: CEFAZOLIN 2 GM/100 ML PREMIX 100 ML IV ×2 (01:01→09:17)
[2024-04-11 04:00] VITALS: BP 134/74; PULSE 90; RESP 20; TEMP 37.1; O2SAT 96
[2024-04-11] MEDS: CARBIDOPA-LEVODOPA ER 50/200 TABLET 1 EACH PO (05:00)
[2024-04-11] MEDS: ENTACAPONE 200 MG TABLET PO ×3 (05:00→12:51)
[2024-04-11 07:31] LABS: Add Manual Diff / Slide Review NO; Basophils Absolute Auto 0 /uL (0-100); Basophils Percent Auto 0.4 % (0-2); Eosinophils Absolute Auto 200 /uL (0-450); Eosinophils Percent Auto 1.6 % (2-4); Hematocrit 31.9 % (41-53); Hemoglobin 10.9 g/dL (13.5-17.5); Lymphocytes Absolute Auto 600 /uL (1100-4500); Lymphocytes Percent Auto 6.2 % (25-40); Mean Corpuscular HGB Conc 34.2 % (30-36); Mean Corpuscular Hemoglobin 32.8 PG (26-34); Mean Corpuscular Volume 95.8 fL (80-100); Monocytes Absolute Auto 600 /uL (0-900); Monocytes Percent Auto 6.5 % (3-14); Neutrophils Absolute Auto 8300 /uL (1500-7000); Neutrophils Percent Auto 85.3 % (50-75); Platelet Count 327 X10^3/uL (150-400); Red Blood Cell Count 3.33 X10^6/uL (4.5-5.9); Red Cell Distribution Width 13.5 % (11.6-14.8); White Blood Cell Count 9.7 X10^3/uL (4.5-11.0)
[2024-04-11] MEDS: LEVOTHYROXINE 50 MCG TABLET PO (07:31)
[2024-04-11 07:49] LABS: BUN Creatinine Ratio 17.9 (6-22); Blood Urea Nitrogen 17 mg/dL (9-20); Carbon Dioxide 25 mmol/L (22-32); Chloride 109 mmol/L (98-107); Estimated Glomerular Filt Rate > 60 mL/min (>60); Glucose 133 mg/dL (80-110); HEMOLYSIS < 15 (0-50); Potassium 3.7 mmol/L (3.4-5.1); Sodium 137 mmol/L (137-145)
[2024-04-11 08:00] VITALS: BP 121/67; PULSE 60; RESP 24; TEMP 36.8; O2SAT 96
[2024-04-11] MEDS: SODIUM CHLORIDE 0.9% FLUSH 10 ML IV (09:17)
[2024-04-11] MEDS: AMLODIPINE 5 MG TABLET 2.5 MG PO (09:17)
[2024-04-11] MEDS: ENOXAPARIN 40 MG/0.4 ML SYRINGE SUBCUT (09:18)
[2024-04-11] MEDS: ROPINIROLE 1 MG TABLET 2 MG PO (09:18)
[2024-04-11 09:31] VITALS: O2SAT 96
--- NOTE | 2024-04-11 10:49 | PM.DS.1 ---
History of Present Illness History of Present Illness Chief complaint: weakness/ difficulty urinating Narrative: Per H&P: This is an 84 year old male with PMH of ? CAD, prior GI bleed, Parkinson's with deep brain stimulatory, HTN, hypothyroidism, CKD stage III who presents with worsening pain of his right lower leg in the setting of recent cellulitis. He lives at [facility], was start on doxycycline on 04/04 with worsening pain with ambulation. He was seen at an OSH a few days ago. Additional history obtained with the assistance of his spouse. At OSH cephalexin was added to doxycycline. His pain continues to limit his ability to ambulate today, he was brought to [place] ER for further evaluation. He denies cough, chest pain, shortness of breath. He has leg edema on the R, his left leg looks normal. He denies pain at rest. His erythema is stable on the antibiotics to maybe slightly improved. He tells me his pain is in his ankle and calf when ambulating, at rest it is not really present at all. He has been unable to ambulate at his assisted living facility, worsening despite oral antibiotics. In the ER, his vital signs were unremarkable. Labs showed mild troponin elevation and elevated proBNP, with no prior lab values to compare. Troponin downtrended very slightly on repeat. Imaging of his right leg including ultrasound, and radiographs were unremarkable with no evidence of fracture or osteomyelitis. Discharge Providers Provider Date of admission: 04/08/24 15:31 Discharge Date: 04/11/24 Primary care physician: Dipesh Rosario MD Consults: 04/08/24 15:23 Consult to [facility] [place] - Horticulture Professor Stat Comment: may need SNF Horticulture Professor Consult needed for:: Other reason (Comment) 04/08/24 16:54 Consult to Occupational Therapy Evaluate & Treat Comment: Physician Instructions: Evaluate and treat Consult to Physical Therapy Evaluate & Treat Comment: Physician Instructions: Evaluate and Treat Discharge provider: Luis Matthews MD Summary Hospital Course Discharge Diagnosis: 1. Right lower extremity cellulitis and pain - given ceftriaxone 2g in the ER. Ordered to continue on cefazolin today, and started vancomycin per pharmacy with some improvement today in ambulation and on exam. - differential does include non-skeletal injury after fall, though his R leg is certainly warm and erythematous, and painful when he ambulates indicative of ongoing cellulitis not responding to outpatient antibiotic therapies. But has improved since admission and initiation of IV antibiotics. - radiographs are negative for acute fracture, he can WBAT - PT/OT consults, pain control, and antibiotics. Pending SNF. - No recent shortness of breath and with unilateral edema highly doubt heart failure as a cause of his swelling. RLE US negative for DVT. 2. Parkinson's disease - continue home sinemet, entacapone, and ropinorole (replace with formulary short acting instead of ER). 3. HTN - continue home amlodipine 2.5 mg BID 4. hypothyroidism - continue home levothyroxine Hospital Course: He was admitted for cellulitis and treated with IV antibiotics. With leg elevation he would improvement of his cellulitis. His swelling and redness improved dramatically. On the day of discharge he felt near baseline and was looking forward to his rehab at [facility]. No fevers overnight, no issues with his Parkinson's or hypertension. He will be continued on oral antibiotics. Status at Discharge Cognitive/behavioral status at discharge: oriented Functional status at discharge: uses cane/walker Overall status at discharge: patient is progressing back to baseline Time Spent with Patient Time spent: Greater than 30 minutes Exam Vital Signs (past 8 hours): - 04/11/24 04:00 04/11/24 04:00 04/11/24 08:00 Temperature 98.7 F 98.2 F Pulse Rate 90 60 Respiratory Rate 20 24 Blood Pressure 134/74 121/67 Pulse Oximetry 96 96 96 Oxygen Delivery Method Oxygen Flow Rate 0 0 04/11/24 09:31 Temperature Pulse Rate Respiratory Rate Blood Pressure Pulse Oximetry 96 Oxygen Delivery Method Room Air Oxygen Flow Rate Oxygen Delivery Method Room Air Oxygen Flow Rate 0 Narrative Exam Narrative: NAD, alert and oriented. Fluent speech. Lungs are clear, normal rate and effort. Heart is regular, no murmur gallop or rub. Abdomen is soft, non distended. Extremities: Right leg is still slightly red and there is a little bit of edema, but much improved from prior reports. The left leg has chronic venous stasis dermatitis changes. Objective Imaging Multiple studies:: Radiologist's impression: Knee x-ray: No acute bony abnormality or significant effusion. Expected appearance of total right knee arthroplasty. Ankle x-ray: Diffuse degenerative change involving the ankle and hindfoot, likely posttraumatic. No acute bony abnormality. Abdomen pelvis CT: 1. Diffuse lumbar degenerative change, old compression fracture, moderate canal stenosis at L4-L5. 2. No acute abdominal process. 3. Prostatomegaly, indwelling Kay. 4. Diverticulosis. 5. Mild cardiomegaly, small bilateral pleural effusions, minimal bibasilar atelectasis. 6. Suspect a hemodynamically significant right renal artery stenosis. Vascular ultrasound: No findings of lower extremity deep venous thrombosis. Chest x-ray: No acute cardiopulmonary abnormality is seen. Labs 04/11/24 06:20 04/11/24 06:20 Labs: Laboratory Results - last 24 hr 04/11/24 06:20 WBC 9.7 RBC 3.33 L Hgb 10.9 L Hct 31.9 L MCV 95.8 MCH 32.8 MCHC 34.2 RDW 13.5 Plt Count 327 Neut % (Auto) 85.3 H Lymph % (Auto) 6.2 L Dare % (Auto) 6.5 Eos % (Auto) 1.6 L Baso % (Auto) 0.4 Neut # (Auto) 8300 H Lymph # (Auto) 600 L Dare # (Auto) 600 Eos # (Auto) 200 Baso # (Auto) 0 Sodium 137 Potassium 3.7 Chloride 109 H Carbon Dioxide 25 BUN 17 Creatinine 0.95 Estimated GFR > 60 BUN/Creatinine Ratio 17.9 Glucose 133 H Calcium 8.0 L Magnesium 2.0 PFSH Medical History CAD (coronary artery disease) Skin cancer Anxiety Club foot of both lower extremities GI bleed (03/05/18) Hypertension Hypothyroidism Parkinson disease Surgical History Status post right knee replacement S/P deep brain stimulator placement (2019) History of aortic valve replacement with porcine valve Social History household members: spouse Smoking Status: Former smoker alcohol intake: never Discharge Assessment & Plan Assessment and Plan Assessment: 1. Right lower extremity cellulitis and pain Plan of Treatment: Discharge to half-way facility for rehab efforts. We will continue doxycycline for 5 additional days, oxycodone for pain, Ativan b.i.d. as needed for anxiety which is a chronic medication. Discharge Plan Discharge Plan Patient Disposition: SNF Transfer to: [facility] Under care of provider: SNF provider. Provider Discharge Comment: Stable for discharge to facility. Discharge orders & Medications Prescriptions: New doxycycline hyclate 100 mg capsule 100 mg PO BID Qty: 10 0RF lorazepam [Ativan] 0.5 mg tablet 0.5 mg PO BID PRN (Reason: anxiety) Qty: 15 0RF oxycodone 5 mg capsule 5 mg PO Q6H PRN (Reason: pain) Qty: 15 0RF Continued carbidopa-levodopa 50-200 mg Tablet Extended Release 1 tab PO BID Patient Comments: Takes at 0500, 2000 amlodipine 2.5 mg Tablet 2.5 mg PO BID entacapone 200 mg Tablet 200 mg PO TID Rx Instructions: administer at the same time as l-dopa/carbidopa dose, takes at 0500, 0900, 1300 levothyroxine 50 mcg Tablet 50 mcg PO DAILY carbidopa-levodopa 25-100 mg Tablet 2 tab PO Q4H Patient Comments: Pt takes 2 tabs every 4 hours starting at 0500 ropinirole 8 mg Tablet Extended Release 24 Hr 8 mg PO BEDTIME lorazepam 0.5 mg Tablet 0.5 mg PO BID PRN (Reason: Anxiety) acetaminophen 500 mg capsule 500 mg PO Q4H MDD Max 3000 mg per day PRN (Reason: fever or pain) Qty: 90 0RF calcium carbonate 200 mg calcium (500 mg) Tablet,Chewable 500 mg PO PRN PRN (Reason: acid reflux) Qty: 60 0RF pantoprazole 20 mg Tablet,Delayed Release (Dr/Ec) 20 mg PO BID PRN (Reason: acid reflux) Qty: 60 0RF Follow up/Referrals: Dipesh Rosario MD [Primary Care Provider] - Diet/Activity/Treatments Diet: Regular Liquid consistency: Normal/Thin Food texture: Regular Activity: As tolerated Skin/Wound/Dressing Care Report to your healthcare provider any signs of infection, such as:: chills, fever, increased pain, unusual drainage and unusual redness Special Rehabilitation Services Reason for rehabilitation: Recovery r/t decondition Rehab type: Physical therapy and Occupational therapy Visit Report/Discharge Packet Instructions: DI for Cellulitis -- Adult Stand Alone Forms: Patient Portal/API Discharge Data Primary Care Provider: Dipesh Rosario
--- NOTE | 2024-04-11 13:08 | CM.DPNOTE ---
DCP Continued: Reviewed EMR and team rounds for pt?s medical status. Pt accepted at [facility] today, 04/11 at approximately 1230. [facility] arranged transport with [facility] at 1230. Signed PASRR, signed med list and prescriptions were sent electronically to accepting SNF. Unit EMPLOYMENT EVALUATOR/CASE MANAGER, Coordinator, Pt RN and hospitalist notified of discharge plans. Plan: Pt to transfer to [facility] via [facility] at 1230 for SNF Rehab. CM Team will continue to follow for coordination of discharge plans. YONAS Frost
== END 2024-04-11 13:05 ==
LOC: ED 15:01 → AC 15:33
PROVIDERS: Admitting Provider Internal Medicine; Emergency Provider Emergency Medicine; PCP Family Medicine; Referring Provider Emergency Medicine; Visit Provider Internal Medicine
DX: L03.115 Cellulitis of right lower limb (principal); R79.89 Other specified abnormal findings of blood chemistry; G20.A1 Parkinson's disease without dyskinesia, without mention of fluctuations; E03.9 Hypothyroidism, unspecified; F41.9 Anxiety disorder, unspecified; E78.5 Hyperlipidemia, unspecified; I12.9 Hypertensive chronic kidney disease with stage 1 through stage 4 chronic kidney disease, or unspecified chronic kidney disease; N18.30 Chronic kidney disease, stage 3 unspecified; Z95.0 Presence of cardiac pacemaker; Z87.891 Personal history of nicotine dependence
CPT/HCPCS: 36415; 71045; 73562; 73610; 74177; 80048; 80053; 81001; 82550; 83605; 83690; 83735; 83880; 84145; 84484; 85025; 85610; 85730; 87040; 93005; 93010; 93971; 96365; 96366; 96367; 96372; 97116; 97162; 97166; 97530; 97535; 99285; G0378; J0690; J0696; J1650; Q9967